=== PATIENT | male | born 1960 | race Hispanic/Latino ===

== ENCOUNTER 2016-09-04 19:05 | Observation (INO) | payer BC, OTHER, SELFPAY ==
[2016-09-04 19:41] VITALS: BMI 24.0
[2016-09-04 19:44] VITALS: TEMP 99.1
[2016-09-04] MEDS ORDERED: Folic Acid 1 MG, Thiamine 100 MG, Multivitamin (MVI) 10 ML in Dextrose 5% In Water 1,00... IV SCH (20:00)
--- NOTE | 2016-09-04 20:12 | ED PDOC ---
Arrival/HPI - General Historian: Patient - History of Present Illness Time/Duration: Prior to Arrival Symptom Onset: Gradual Symptom Course: Unchanged Activities at Onset: Light Context: Home <LiborioTrae - Last Filed: 09/05/16 05:56> <Alonso Zuleta - Last Filed: 09/05/16 14:58> - General Chief Complaint: Alcohol Ingestion Time Seen by Provider: 09/04/16 19:30 - History of Present Illness Narrative History of Present Illness (Text): 09/04/16 19:35 Victoria Kulkarni is a 56 year old male, whose past medical history includes ETOH abuse,alcohol withdrawal seizures who presents to the emergency department complaining of alcohol intoxication and a seizure prior to arrival. Patient was brought in by EMS at family's request. According to family pt. continues to drink and refuses any treatment for his alcoholism. Family says patient had seizures in the past. Patient, when questioned, states that he feels fine and admits that he was drinking earlier today. Patient denies any somatic symptoms, headache, shortness of breath, fever, chills, or any other complaint at this time. PMD: None (Trae Capone) Past Medical History - Provider Review Nursing Documentation Reviewed: Yes - Psychiatric Hx Substance Use: No <Trae Capone - Last Filed: 09/05/16 05:56> Family/Social History - Physician Review Nursing Documentation Reviewed: Yes Family/Social History: No Known Family HX Smoking Status: Light Smoker < 10 Cigarettes Daily Hx Alcohol Use: Yes Frequency of alcohol use: Daily Hx Substance Use: No <Trae Capone - Last Filed: 09/05/16 05:56> Allergies/Home Meds <Trae Capone - Last Filed: 09/05/16 05:56> <Alonso Zuleta - Last Filed: 09/05/16 14:58> Allergies/Adverse Reactions: Allergies No Known Allergies Allergy (Verified 09/04/16 19:41) Home Medications: Home Meds Medication Instructions Recorded Confirmed No Known Home Med 09/04/16 09/04/16 Review of Systems - Physician Review All systems were reviewed & negative as marked: Yes - Review of Systems Constitutional: Other (Alcohol intoxication). absent: Fevers, Night Sweats Eyes: absent: Vision Changes ENT: absent: Hearing Changes Respiratory: absent: SOB, Cough Cardiovascular: absent: Chest Pain Gastrointestinal: absent: Abdominal Pain Genitourinary Male: absent: Urinary Output Changes Musculoskeletal: absent: Back Pain, Neck Pain Skin: absent: Rash Neurological: Seizure. absent: Headache Endocrine: absent: Diaphoresis Hemo/Lymphatic: absent: Adenopathy Psychiatric: absent: Depression <LiborioTrae Tesfaye Last Filed: 09/05/16 05:56> Physical Exam Vital Signs Reviewed: Yes Temperature: Afebrile Blood Pressure: Hypertensive Pulse: Tachycardic Respiratory Rate: Normal Appearance: Positive for: Well-Appearing, Non-Toxic, Comfortable Pain Distress: None Mental Status: Positive for: Alert and Oriented X 3, other (Intoxicated) Finger Stick Blood Glucose: 105 - Systems Exam Head: Present: Atraumatic, Normocephalic Pupils: Present: PERRL Extroacular Muscles: Present: EOMI Conjunctiva: Present: Normal Mouth: Present: Moist Mucous Membranes Neck: Present: Normal Range of Motion Respiratory/Chest: Present: Clear to Auscultation, Good Air Exchange. No: Respiratory Distress, Accessory Muscle Use Cardiovascular: Present: Regular Rate and Rhythm, Normal S1, S2. No: Murmurs Abdomen: Present: Normal Bowel Sounds. No: Tenderness, Distention, Peritoneal Signs Back: Present: Normal Inspection Upper Extremity: Present: Normal Inspection. No: Cyanosis, Edema Lower Extremity: Present: Normal Inspection. No: Edema Neurological: Present: GCS=15, CN II-XII Intact, Motor Func Grossly Intact, Normal Sensory Function Skin: Present: Warm, Dry, Normal Color. No: Rashes Psychiatric: Present: Alert, Oriented x 3, Intoxicated <LiborioTrae - Last Filed: 09/05/16 05:56> Medical Decision Making - Lab Interpretations I have reviewed the lab results: Yes <Trae Capone - Last Filed: 09/05/16 05:56> <Alonso Zuleta - Last Filed: 09/05/16 14:58> ED Course and Treatment: 09/04/16 19:35 Impression: 56 year old male complaining of alcohol intoxication and a seizure episode prior to arrival. Differential Diagnosis included but are not limited to: Alcohol intoxication vs. Alcohol withdrawal vs. Seizure vs. Seizure disorder Plan: -- EKG -- Chest X-ray -- Labs -- Ativan and Dextrose -- Reassess and disposition (Trae Capone) - Lab Interpretations Lab Results: 09/04/16 20:01 09/04/16 20:01 Lab Results 09/04/16 20:01: Alcohol, Quantitative 391 H* 09/04/16 20:01: WBC 6.4, RBC 4.57, Hgb 14.5, Hct 41.6 L, MCV 91.0, MCH 31.7, MCHC 34.9, RDW 14.5, Plt Count 202, MPV 8.8 09/04/16 20:01: Sodium 141, Potassium 3.9, Chloride 100, Carbon Dioxide 27, Anion Gap 18, BUN 13, Creatinine 0.7, Est GFR ( Amer) > 60, Est GFR (Non- Af Amer) > 60, Random Glucose 103, Calcium 8.9, Total Bilirubin 0.8, AST 94 H, ALT 56, Alkaline Phosphatase 56, Total Protein 7.7, Albumin 4.4, Globulin 3.3, Albumin/Globulin Ratio 1.3 09/04/16 20:01: PT 10.1, INR 0.94, APTT 23.1 L - Medication Orders Current Medication Orders: Folic Acid 1 mg/ Thiamine HCl 100 mg/ Multivitamins/Vitamin C 10 ml/ Dextrose 1 ,011.2 mls @ 100 mls/hr IV .[id number] [facility] Last Admin: 09/04/16 21:40 Dose: 100 mls/hr Discontinued Medications Lorazepam (Ativan) 1 mg IVP ONCE ONE Stop: 09/04/16 20:06 Last Admin: 09/04/16 20:28 Dose: 1 mg ED OBSERVATION Date of observation admission: 09/04/16 Time of observation admission: 19:35 <Trae Capone - Last Filed: 09/05/16 05:56> Discharge: Yes <Alonso Zuleta - Last Filed: 09/05/16 14:58> - Observation admission statement Patient is being placed in observation because:: alcohol intoxication (Trae Capone) - Goals of Observation Goals of observation are:: observe for signs of withdrawal, sobriety (Trae Capone) - Progress Note Progress Note: 09/04/16 19:35 Pt presented for alcohol intoxication. Will observe pending sobriety. 09/04/16 21:35 Pt resting comfortably, no acute distress. Alcohol level: 391. 09/04/16 22:50 Reviewed EKG, sinus tachycardia at [address]pm[address] Non-specific ST/T wave changes. 09/05/16 00:49 Pt resting comfortably, no acute distress 09/05/16 02:50 Pt resting comfortably, no acute distress. Stable vital signs. 09/05/16 04:50 Pt resting comfortably, no acute distress 09/05/16 07:[address] Zuleta, pending sobriety, re-evaluation, and final disposition. (Trae Capone) 09/05/16 14:58 Patient awake, alert, ate meal, steady gait. Will discharge. (Alonso Zuleta) - Scribe Statement The provider has reviewed the documentation as recorded by the Scribe <Trae Capone - Last Filed: 09/05/16 05:56> <Alonso Zuleta - Last Filed: 09/05/16 14:58> - Scribe Statement Patricia Braswell Provider Scribe Attestation: All medical record entries made by the Scribe were at my direction and personally dictated by me. I have reviewed the chart and agree that the record accurately reflects my personal performance of the history, physical exam, medical decision making, and the department course for this patient. I have also personally directed, reviewed, and agree with the discharge instructions and disposition. (Trae Capone) Disposition/Present on Arrival - Present on Arrival History of DVT/PE: No History of Uncontrolled Diabetes: No Urinary Catheter: No History of Decub. Ulcer: No History Surgical Site Infection Following: None <Trae Capone - Last Filed: 09/05/16 05:56> - Present on Arrival Any Indicators Present on Arrival: No - Disposition Have Diagnosis and Disposition been Completed?: Yes Disposition Time: 14:58 Patient Plan: Discharge <Alonso Zuleta - Last Filed: 09/05/16 14:58> - Disposition Diagnosis: Alcohol intoxication Disposition: HOME/ ROUTINE Condition: STABLE
[2016-09-04 20:13] LABS: HEMATOCRIT 41.6 % (42.0-52.0); MEAN CORPUSCULAR HEMOGLOBIN 31.7 pg (25.0-35.0); MEAN CORPUSCULAR HGB CONC 34.9 g/dl (31.0-37.0); MEAN PLATELET VOLUME 8.8 fl (7.0-11.0); RED CELL DISTRIBUTION WIDTH 14.5 % (11.5-14.5); WHITE BLOOD COUNT 6.4 10^3/ul (4.5-11.0)
[2016-09-04 20:24] LABS: ALB/GLOB RATIO 1.3 (1.1-1.8); ALKALINE PHOSPHATASE 56 U/L (38-133); ALT/SGPT 56 U/L (7-56); AST/SGOT 94 U/L (15-59); BILIRUBIN,TOTAL 0.8 mg/dL (0.2-1.3); BLOOD UREA NITROGEN 13 mg/dL (7-21); CALCIUM 8.9 mg/dL (8.4-10.5); CARBON DIOXIDE 27 mmol/L (21-33); CHLORIDE 100 mmol/L (98-107); GFR AFRICAN-AMERICAN > 60; GLUCOSE,RANDOM 103 mg/dL (70-110); POTASSIUM 3.9 mmol/L (3.6-5.0); SODIUM 141 mmol/L (132-148); TOTAL PROTEIN 7.7 g/dL (5.8-8.3)
[2016-09-04 20:26] LABS: INR 0.94 (0.93-1.08); PARTIAL THROMBOPLASTIN TIME 23.1 Seconds (23.7-30.8)
[2016-09-05 09:20] VITALS: RESP 16
[2016-09-05 15:09] VITALS: BP 136/82; PULSE 87; O2SAT 97
--- NOTE | 2016-09-05 16:29 | CARD ---
APPROVED REPORT EKG Measurement Heart [id number] <Conclusion> Sinus tachycardia Septal infarct, age undetermined Abnormal ECG
== END 2016-09-05 14:59 | disposition home or self-care (01) ==
LOC: ED 19:05 → EROBSV 22:43
PROVIDERS: ADMIT Emergency Medicine; ATTEND Emergency Medicine
DX: F10.129 Alcohol abuse with intoxication, unspecified (principal); Y90.8 Blood alcohol level of 240 mg/100 ml or more
CPT/HCPCS: 80053; 85027; 85610; 85730; 93005; 96374; 99285; G0378; G0480; J2060; J3411; J7070

== ENCOUNTER 2016-09-18 20:36 | Observation (INO) | payer SELFPAY ==
[2016-09-18 20:36] VITALS: BMI 24.0
[2016-09-18 20:51] VITALS: RESP 18; TEMP 97
--- NOTE | 2016-09-18 21:05 | ED PDOC ---
Arrival/HPI - General Chief Complaint: Alcohol Ingestion Time Seen by Provider: 09/18/16 20:43 Historian: Patient, EMS - History of Present Illness Narrative History of Present Illness (Text): 09/18/16 21:01 Victoria Kulkarni is a 56 year old male, whose past medical history includes alcohol abuse, who presents to the Emergency department brought in by EMS for public intoxication. Patient is awake, alert, and oriented x 3. Patient admits to drinking alcohol tonight and states he feels completely fine. Patient denies any fever, chills, chest pain, shortness of breath, nausea, vomiting, diarrhea, urinary symptoms, back pain, neck pain, headache, dizziness, or any other complaints. Symptom Onset: Gradual Symptom Course: Unchanged Activities at Onset: Rest, Light Context: Street Past Medical History - Provider Review Nursing Documentation Reviewed: Yes - Infectious Disease Hx of Infectious Diseases: None - Psychiatric Hx Substance Use: No Family/Social History - Physician Review Nursing Documentation Reviewed: Yes Family/Social History: No Known Family HX Smoking Status: Light Smoker < 10 Cigarettes Daily Hx Alcohol Use: Yes Hx Substance Use: No Allergies/Home Meds Allergies/Adverse Reactions: Allergies No Known Allergies Allergy (Verified 09/04/16 19:41) Home Medications: Home Meds Medication Instructions Recorded Confirmed No Known Home Med 09/04/16 09/18/16 Review of Systems - Physician Review All systems were reviewed & negative as marked: Yes - Review of Systems Constitutional: Normal. absent: Fevers Eyes: Normal ENT: Normal Respiratory: Normal. absent: SOB, Cough Cardiovascular: Normal. absent: Chest Pain Gastrointestinal: Normal. absent: Abdominal Pain, Diarrhea, Nausea, Vomiting Genitourinary Male: Normal. absent: Dysuria, Frequency, Hematuria, Urinary Output Changes Musculoskeletal: Normal. absent: Back Pain, Neck Pain Skin: Normal. absent: Rash Neurological: Normal. absent: Headache, Dizziness Endocrine: Normal Hemo/Lymphatic: Normal Psychiatric: Other (+alcohol intoxication) Physical Exam Vital Signs Reviewed: Yes Vital Signs Temp Pulse Resp BP Pulse Ox 09/19/16 02:45 82 18 110/78 98 09/19/16 01:32 85 18 114/73 97 09/18/16 20:51 97.0 F L 75 18 125/81 95 Temperature: Afebrile Blood Pressure: Normal Pulse: Regular Respiratory Rate: Normal Appearance: Positive for: Well-Appearing, Comfortable Pain Distress: None Mental Status: Positive for: Alert and Oriented X 3 Finger Stick Blood Glucose: 77 - Systems Exam Head: Present: Atraumatic, Normocephalic Pupils: Present: PERRL Extroacular Muscles: Present: EOMI Conjunctiva: Present: Normal Mouth: Present: Moist Mucous Membranes Neck: Present: Normal Range of Motion Respiratory/Chest: Present: Clear to Auscultation, Good Air Exchange. No: Respiratory Distress, Accessory Muscle Use Cardiovascular: Present: Regular Rate and Rhythm, Normal S1, S2. No: Murmurs Abdomen: Present: Normal Bowel Sounds. No: Tenderness, Distention, Peritoneal Signs Back: Present: Normal Inspection Upper Extremity: Present: Normal Inspection. No: Cyanosis, Edema Lower Extremity: Present: Normal Inspection. No: Edema Neurological: Present: GCS=15, CN II-XII Intact, Speech Normal Skin: Present: Warm, Dry, Normal Color. No: Rashes Psychiatric: Present: Alert, Oriented x 3, Normal Insight, Normal Concentration , Intoxicated Medical Decision Making ED Course and Treatment: 09/18/16 21:01 Impression: 56 year old male brought in by EMS for public intoxication. Differential Diagnosis include but are not limited to: alcohol intoxication Plan: -- Reassess and disposition Prior Visits: Notes and results from previous visits were reviewed. Progress Notes: ED OBSERVATION Discharge: Yes Date of observation admission: 09/18/16 Time of observation admission: 21:00 - Observation admission statement Patient is being placed in observation because:: Alcohol intoxication - Goals of Observation Goals of observation are:: sobriety, observe for signs of withdrawal - Progress Note Progress Note: 09/18/16 21:00 Pt brought in for public intoxication. Will observe until morning pending sobriety. 09/18/16 23:00 Pt resting comfortably, no new complaints. 09/19/16 01:12 Pt sleeping currently, no acute distress. - Scribe Statement The provider has reviewed the documentation as recorded by the Scriblacie Driscoll All medical record entries made by the Scribe were at my direction and personally dictated by me. I have reviewed the chart and agree that the record accurately reflects my personal performance of the history, physical exam, medical decision making, and the department course for this patient. I have also personally directed, reviewed, and agree with the discharge instructions and disposition. Disposition/Present on Arrival - Present on Arrival Any Indicators Present on Arrival: No History of DVT/PE: No History of Uncontrolled Diabetes: No Urinary Catheter: No History of Decub. Ulcer: No History Surgical Site Infection Following: None - Disposition Have Diagnosis and Disposition been Completed?: Yes Diagnosis: Alcohol abuse Disposition: HOME/ ROUTINE Disposition Time: 02:48 Patient Plan: Discharge Condition: GOOD
[2016-09-19 02:46] VITALS: BP 110/78; PULSE 82; O2SAT 98
== END 2016-09-19 02:46 | disposition home or self-care (01) ==
LOC: ED 20:36 → EROBSV 21:00
PROVIDERS: ADMIT Emergency Medicine; ATTEND Emergency Medicine
DX: F10.10 Alcohol abuse, uncomplicated (principal); F17.210 Nicotine dependence, cigarettes, uncomplicated
CPT/HCPCS: 99283; G0378

== ENCOUNTER 2017-04-07 19:30 | Emergency (ER) | payer SELFPAY ==
[2017-04-07 19:37] VITALS: BMI 27.3
[2017-04-07] MEDS ORDERED: TDAP Vaccine 0.5 mL Syr IM ONE (19:46)
--- NOTE | 2017-04-07 19:57 | ED PDOC ---
Arrival/HPI - General Chief Complaint: Alcohol Ingestion Time Seen by Provider: 04/07/17 19:43 Historian: Patient - History of Present Illness Narrative History of Present Illness (Text): 04/07/17 19:42 A 57 year old male, whose past medical history includes alcohol abuse, is brought in for public intoxication. Patient admits to drinking this evening. States he fell, scrapping left side of his face. Denies of any pain to area and feels find. Patient denies of any headache, neck pain, or any other somatic complaints at this time. Denies of any substance abuse. No PMD Past Medical History - Provider Review Nursing Documentation Reviewed: Yes - Infectious Disease Hx of Infectious Diseases: None - Psychiatric Hx Substance Use: No - Anesthesia Hx Anesthesia: No Family/Social History - Physician Review Nursing Documentation Reviewed: Yes Family/Social History: No Known Family HX Smoking Status: Light Smoker < 10 Cigarettes Daily Hx Alcohol Use: Yes Frequency of alcohol use: Daily Hx Substance Use: No Allergies/Home Meds Allergies/Adverse Reactions: Allergies No Known Allergies Allergy (Verified 04/07/17 19:36) Home Medications: Home Meds Medication Instructions Recorded Confirmed No Known Home Med 09/04/16 04/07/17 Review of Systems - Physician Review All systems were reviewed & negative as marked: Yes - Review of Systems Constitutional: absent: Fevers, Night Sweats Gastrointestinal: absent: Abdominal Pain, Diarrhea, Nausea, Vomiting Musculoskeletal: absent: Neck Pain Skin: Other (abrasion to left side of face; denies any pain) Neurological: absent: Headache Physical Exam Vital Signs Temp Pulse Resp BP Pulse Ox 04/08/17 04:00 88 18 138/72 98 04/07/17 22:52 91 H 17 140/71 96 04/07/17 20:09 98.1 F 90 17 180/90 H 96 - Systems Exam Head: Present: Abrasion (superficial abrasion uvulsion to left maxillary facial area). No: Tenderness (no palpable tenderness), Swelling Pupils: Present: PERRL Extroacular Muscles: Present: EOMI Conjunctiva: Present: Normal Mouth: Present: Moist Mucous Membranes Neck: Present: Normal Range of Motion Respiratory/Chest: Present: Clear to Auscultation, Good Air Exchange. No: Respiratory Distress, Accessory Muscle Use Cardiovascular: Present: Regular Rate and Rhythm, Normal S1, S2. No: Murmurs Abdomen: Present: Normal Bowel Sounds. No: Tenderness, Distention, Peritoneal Signs Back: Present: Normal Inspection Upper Extremity: Present: Normal Inspection, Normal ROM. No: Cyanosis, Edema Lower Extremity: Present: Normal Inspection, Normal ROM. No: Edema Neurological: Present: GCS=15, CN II-XII Intact, Speech Normal Skin: Present: Warm, Dry, Normal Color. No: Rashes Psychiatric: Present: Alert, Oriented x 3, Normal Insight, Normal Concentration Medical Decision Making ED Course and Treatment: 04/07/17 19:46 Impression: 57 year old male brought in for public intoxication. Physical exam shows skin superficial abrasion uvulsion to left maxillary facial area, no swelling, no palpable tenderness. Plan: -- Boostrix Vaccine -- Reassess and disposition Prior Visits: Notes and results from previous visits were reviewed. Patient was last seen in the emergency department on 09/18/2016 for for public intoxication. Patient was palced under Emergency department observation and later d/c home. Progress Notes: 04/08/17 06:11 Pt. alert/sober/with steady gait in the ER. - Lab Interpretations Lab Results: Lab Results 04/07/17 21:35: Alcohol, Quantitative 368 H* - Medication Orders Current Medication Orders: Discontinued Medications Tetanus/Reduced Diphtheria/Acell Pertussis (Boostrix Vaccine Inj) 0.5 ml IM .ONCE ONE Stop: 04/07/17 19:47 Last Admin: 04/07/17 20:17 Dose: 0.5 ml Immunization Registry Document 04/07/17 20:17 IT (Rec: 04/07/17 20:17 IT [id number]) Immunization Registry Consent Date 04/07/17 - Scribe Statement The provider has reviewed the documentation as recorded by the Mao Perez Provider Scribe Attestation: All medical record entries made by the Mao were at my direction and personally dictated by me. I have reviewed the chart and agree that the record accurately reflects my personal performance of the history, physical exam, medical decision making, and the department course for this patient. I have also personally directed, reviewed, and agree with the discharge instructions and disposition. Disposition/Present on Arrival - Present on Arrival Any Indicators Present on Arrival: No History of DVT/PE: No History of Uncontrolled Diabetes: No Urinary Catheter: No History of Decub. Ulcer: No History Surgical Site Infection Following: None - Disposition Have Diagnosis and Disposition been Completed?: Yes Diagnosis: Alcohol intoxication, Facial abrasion Disposition: HOME/ ROUTINE Disposition Time: 06:11 Patient Plan: Discharge Patient Problems: Current Active Problems Problem Status Onset Alcohol intoxication Acute Facial abrasion Acute Condition: STABLE Discharge Instructions (ExitCare): Alcohol Intoxication (ED), Abuse of Alcohol (ED), Abrasion (ED) Additional Instructions: Keep wound clean and dry/may apply bacitracin ointment daily Referrals: Austin Azevedo, [Primary Care Provider] - Follow up with primary Alcoholics Anonymous [Outside] - Follow up with primary Forms: [employer] ([place] Citizen)
[2017-04-07 20:13] VITALS: TEMP 98.1
[2017-04-08 05:40] VITALS: RESP 18
[2017-04-08 06:32] VITALS: BP 135/80; PULSE 85; O2SAT 100
== END 2017-04-08 06:33 | disposition home or self-care (01) ==
LOC: ED 19:30
DX: S00.81XA Abrasion of other part of head, initial encounter (principal); W18.30XA Fall on same level, unspecified, initial encounter; Y92.89 Other specified places as the place of occurrence of the external cause; F10.129 Alcohol abuse with intoxication, unspecified; Y90.8 Blood alcohol level of 240 mg/100 ml or more; Z23 Encounter for immunization
CPT/HCPCS: 90471; 90715; 99283; G0480

== ENCOUNTER 2017-06-05 11:38 | Inpatient (IN) | payer BC ==
--- NOTE | 2017-06-05 12:21 | ED PDOC ---
Arrival/HPI - General Chief Complaint: Cough, Cold, Congestion Time Seen by Provider: 06/05/17 12:16 Historian: Patient - History of Present Illness Narrative History of Present Illness (Text): 06/05/17 12:16 57 y/o male, chronic smoker, nkda, chronic smokers, c/o coughing on and off with sorethroat x 1 week. Aching pain, aggravated by swallowing, associated with the coughing from wet to dry, no chest pain or shortness of breath, admits having fever at night recently, no recent traveling with the last travel in 2016, from [facility], chronic smoker, no rash, no numbness or tingling, no other medical or psychological complaints. 06/05/17 15:44 -Last chest xray from 05/[address] Tello office, chest xray has no cavitation lesions. Past Medical History - Infectious Disease Hx of Infectious Diseases: None - Cardiac Hx Cardiac Disorders: No - Pulmonary Hx Respiratory Disorders: No - Neurological Hx Neurological Disorder: No - HEENT Hx HEENT Disorder: No - Renal Hx Renal Disorder: No - Endocrine/Metabolic Hx Endocrine Disorders: No - Hematological/Oncological Hx Blood Disorders: No - Integumentary Hx Dermatological Disorder: No - Musculoskeletal/Rheumatological Hx Musculoskeletal Disorders: No - Gastrointestinal Hx Gastrointestinal Disorders: No - Genitourinary/Gynecological Hx Genitourinary Disorders: No - Psychiatric Hx Psychophysiologic Disorder: No Hx Substance Use: No - Anesthesia Hx Anesthesia: No Family/Social History - Physician Review Nursing Documentation Reviewed: Yes Family/Social History: Unknown Family HX Smoking Status: Light Smoker < 10 Cigarettes Daily Hx Alcohol Use: Yes Frequency of alcohol use: Socially Hx Substance Use: No Allergies/Home Meds Allergies/Adverse Reactions: Allergies No Known Allergies Allergy (Verified 06/05/17 11:56) Home Medications: Home Meds Medication Instructions Recorded Confirmed No Known Home Med 09/04/16 06/05/17 Review of Systems - Review of Systems Constitutional: absent: Fatigue, Fevers Eyes: absent: Vision Changes ENT: Sore Throat. absent: Hearing Changes Respiratory: Cough. absent: SOB, Sputum, Wheezing Cardiovascular: absent: Chest Pain Gastrointestinal: absent: Abdominal Pain, Diarrhea, Nausea, Vomiting Musculoskeletal: absent: Arthralgias, Back Pain Skin: absent: Rash, Pruritis Psychiatric: absent: Anxiety, Depression, Suicidal Ideation Physical Exam Vital Signs Reviewed: Yes Vital Signs Temp Pulse Resp BP Pulse Ox 06/05/17 17:56 101.6 F H 103 H 18 129/69 95 06/05/17 16:11 102.2 F H 100 H 20 141/88 96 06/05/17 15:05 98.1 F 92 H 17 134/80 97 06/05/17 11:59 97.9 F 89 16 133/79 96 Temperature: Afebrile Blood Pressure: Normal Pulse: Regular Respiratory Rate: Normal Appearance: Positive for: Well-Appearing, Non-Toxic, Comfortable Pain Distress: Mild Mental Status: Positive for: Alert and Oriented X 3 - Systems Exam Head: Present: Atraumatic, Normocephalic Pupils: Present: PERRL Extroacular Muscles: Present: EOMI Conjunctiva: Present: Normal Ears: Present: NORMAL TM, Normal Canal. No: Erythema Mouth: Present: Moist Mucous Membranes Pharnyx: Present: Normal. No: ERYTHEMA, EXUDATE Nose (External): Present: Atraumatic. No: Abrasion, Contusion Nose (Internal): Present: Normal Inspection, Rhinorrhea. No: Septal Hematoma, Epistaxis Neck: Present: Normal Range of Motion Respiratory/Chest: Present: Clear to Auscultation, Good Air Exchange, Rhonchi ( RML region. ). No: Respiratory Distress, Accessory Muscle Use, Wheezes, Decreased Breath Sounds, Rales, Retracting, Tachypneic, Tender to Palpation Cardiovascular: Present: Regular Rate and Rhythm, Normal S1, S2. No: Murmurs Abdomen: Present: Normal Bowel Sounds. No: Tenderness, Distention, Peritoneal Signs Back: Present: Normal Inspection. No: Midline Tenderness, Paraspinal Tenderness Upper Extremity: Present: Normal Inspection. No: Cyanosis, Edema Lower Extremity: Present: Normal Inspection. No: Edema Neurological: Present: GCS=15, CN II-XII Intact, Speech Normal, Motor Func Grossly Intact Skin: Present: Warm, Dry, Normal Color. No: Rashes Psychiatric: Present: Alert, Oriented x 3, Normal Insight, Normal Concentration Medical Decision Making ED Course and Treatment: 06/05/17 12:23 -Chest xray -observe and reassess 06/05/17 13:22 -Chest xray show: A large superior segment right lower lobe likely cavitary lesion is identified of either infectious or neoplastic origin though an inflammatory process is not completely excluded. Volume loss of the right lung is appreciated with elevation of the right hemidiaphragm evident in the frontal view. Follow chest CT is advised with contrast for greater characterization of this finding. -Labs/blood/sputumn cultures/quantiferon ordered. IV rocephine/azithromycin ordered. -Case discussed with Dr. Lazo and cxr as well, agreed this needs further work up and admission. -Serum Procalcitonin and ESR/sputum culture ordered. -Contact precaution placed. 06/05/17 15:40 -EKG: NSR @ 98 BPM, no ST elevation or depression, no T wave inversion. -CT chest: Multiple cavitary and necrotic masses the right lung. Additional subsegmental infiltrates in the left upper lobe. These findings are likely infectious/ inflammatory nature. -Labs are non significant except wbc 18 (blood cultures/sputum culture), platete 565 (likely inflammatory/infectious response), K+ 3.5 (potassium chloride 20meq po ordered). -Rapid flu is negative -UA is pending, IV rocephine/azithromycin infusing, N95 mask and isolation ordered. -I explained to the patient that the differential can be tumor vs. pneumonia vs. abscess vs. TB vs. copd changes, he agreed to be admitted, paging hospitalist protection manager since Dr. Aleman use hospitalist service now starting 06/05/17 15:46 -I spoke to Dr. Haseeb Garvin, hospitalist protection manager, discussed about the case/labs/ radiology results and IV antibiotics, expressed my concern for possible TB, agreed to admit to her service and will follow up on any pending labs and treatment. -Pt. will need ID and pulmonology consult. 06/05/17 16:06 -AB.52, PCO2 35, HCO3 28.6 -Oxygen 2L nasal cannula ordered. 06/05/17 16:13 -Pt. febrile in the ER, tylenol 650mg po ordered, I spoke with the ID RN Beckie Grayson, awared of this case, request negative pressure room on the floor for this patient. I explained to the [employer]PA[employer] Montgomery as well. - Lab Interpretations Lab Results: 06/05/17 13:50 06/05/17 13:50 Lab Results 06/05/17 15:50: pCO2 35, pO2 56.0 L, HCO3 28.6 H, ABG pH 7.52 H, ABG Total CO2 29.7 H, ABG O2 Saturation 92.8 L, ABG O2 Content 14.1 L, ABG Base Excess 5.6 H, ABG Hemoglobin 11.2 L, ABG Carboxyhemoglobin 2.5 H, POC ABG HHb (Measured) 6.9 H , ABG Methemoglobin 1.2, ABG O2 Capacity 15.2 L, Hgb O2 Saturation 89.4 L, FiO2 21.0 06/05/17 13:50: Alcohol, Quantitative < 10 06/05/17 13:50: ESR 121 H 06/05/17 13:50: WBC 18.2 H D, RBC 3.43 L, Hgb 10.5 L, Hct 32.0 L, MCV 93.3, MCH 30.6, MCHC 32.8, RDW 14.3, Plt Count 565 H, MPV 8.5, Gran % 86.4 H, Lymph % ( Auto) 8.1 L, [place] % (Auto) 5.3, Eos % (Auto) 0.1 L, Baso % (Auto) 0.1, Gran # 15.75 H, Lymph # (Auto) 1.5, [place] # (Auto) 1.0 H, Eos # (Auto) 0.0, Baso # (Auto ) 0.02 06/05/17 13:50: Sodium 135, Potassium 3.5 L, Chloride 93 L, Carbon Dioxide 33, Anion Gap 12, BUN 16, Creatinine 0.6 L, Est GFR ( Amer) > 60, Est GFR ( Non-Af Amer) > 60, Random Glucose 102, Calcium 9.1, Total Bilirubin 0.4, AST 41 , ALT 35, Alkaline Phosphatase 149 H, Total Protein 6.9, Albumin 3.1, Globulin 3.9, Albumin/Globulin Ratio 0.8 L 06/05/17 13:30: Influenza Typ A,B (EIA) Negative for flu a/b - RAD Interpretation Radiology Orders: 06/05/17 12:21 CHEST TWO VIEWS (PA/LAT) [RAD] Stat 06/05/17 13:20 CHEST W/CONTRAST [CT] Stat Chest xray: A large superior segment right lower lobe likely cavitary lesion is identified of either infectious or neoplastic origin though an inflammatory process is not completely excluded. Volume loss of the right lung is appreciated with elevation of the right hemidiaphragm evident in the frontal view. Follow chest CT is advised with contrast for greater characterization of this finding. CT chest: PROCEDURE: CT Chest with contrast HISTORY: Rt. lung cavitation lesion vs. infection vs. tumor COMPARISON: None. TECHNIQUE: Contiguous axial images were obtained through the chest with intravenous contrast enhancement. Sagittal and coronal reconstructions were performed. IV contrast: 100 cc Omnipaque 350 Radiation dose (DLP): 363.64 mGy-cm. This CT exam was performed using one or more of the following dose reduction techniques: Automated exposure control, adjustment of the mA and/or kV according to patient size, and/or use of iterative reconstruction technique. FINDINGS: LUNGS: Multiple contiguous cavitary masses affecting the superior segment of the right lower lobe, anterior segment right upper lobe and apex of the right upper. Largest cavitary mass which is somewhat atypical in the superior segment right lower lobe measures 5.3 x 7.8 cm. A more traditional cavitary mass with large air-fluid level in the anterior segment right upper lobe measures 5.6 x 4 6 cm. Additional parenchymal consolidative changes partially cavitary reside in the apex. In addition, there are faint subsegmental peripheral infiltrates in the left upper lobe. The most likely etiology would be an infectious inflammatory process. Septic emboli unusually more widely disseminated and smaller. The presence of contralateral subsegmental infiltrates suggest an infectious etiology. MEDIASTINUM: Unremarkable thoracic aorta. No aneurysm or dissection. Normal sized heart. Although this study is not tailored for pulmonary embolism there are no large pulmonary emboli noted. No lymphadenopathy. PLEURA: No pleural fluid. No pneumothorax. BONES: No fracture. No destructive lesion. UPPER ABDOMEN: Grossly unremarkable. OTHER FINDINGS: None. IMPRESSION: Multiple cavitary and necrotic masses the right lung. Additional subsegmental infiltrates in the left upper lobe. These findings are likely infectious/ inflammatory nature. Dining Room Tables Set Up Attendant: Radiologist - EKG Interpretation EKG Interpretation (Text): 06/05/17 14:58 -EKG: NSR @ 98 BPM, no ST elevation or depression, no T wave inversion. Interpreted by ED Physician: Yes Type: 12 lead EKG - Medication Orders Current Medication Orders: Acetaminophen (Tylenol 325mg Tab) 650 mg PO Q6H PRN PRN Reason: Fever >100.4 F Albuterol/Ipratropium (Duoneb 3 Mg/0.5 Mg (3 Ml) Ud) 3 ml IH Q2H PRN PRN Reason: Shortness of Breath Benzocaine/Menthol (Cepacol Sore Throat) 1 aneudy MT Q2H PRN PRN Reason: Sore Throat Last Admin: 06/05/17 17:54 Dose: 1 aneudy Guaifenesin/Dextromethorphan (Robitussin Dm) 5 ml PO Q4H PRN PRN Reason: Cough Sodium Chloride (Sodium Chloride 0.9%) 1,000 mls @ 100 mls/hr IV .Q10H HIPOLITO Last Admin: 06/05/17 14:07 Dose: 100 mls/hr eMAR Start Stop Document 06/05/17 14:07 GMD (Rec: 06/05/17 14:07 GMD [id number]) Intravenous Solution Start Date 06/05/17 Start Time 14:07 Ceftriaxone Sodium (Rocephin 1 Gram Ivpb) 1 gm in 100 mls @ 100 mls/hr IVPB DAILY HIPOLITO PRN Reason: Protocol Ampicillin Sodium/Sulbactam (Sodium 3 gm/ Sodium Chloride) 100 mls @ 200 mls/ hr IVPB Q6 HIPOLITO PRN Reason: Protocol Last Admin: 06/05/17 17:59 Dose: 200 mls/hr eMAR Start Stop Document 06/05/17 17:59 SZA (Rec: 06/05/17 18:00 SAMI [id number]) Intravenous Solution Start Date 06/05/17 Start Time 18:00 End Date 06/05/17 End time 18:30 Total Infusion Time 30 Ibuprofen (Motrin Tab) 400 mg PO Q6H PRN PRN Reason: Pain, moderate (4-7) Multivitamins/Minerals (Therapeutic-M Tab) 1 tab PO 0800 HIPOLITO Nicotine (Nicoderm Cq) 1 patch TD DAILY H[facility]OLITO Pantoprazole Sodium (Protonix Ec Tab) 40 mg PO 0600 HIPOLITO Thiamine HCl (Vitamin B1 Tab) 100 mg PO DAILY [facility] Discontinued Medications Acetaminophen (Tylenol 325mg Tab) 650 mg PO STAT STA Stop: 06/05/17 16:14 Last Admin: 06/05/17 16:23 Dose: 650 mg MAR Pain/Vitals Document 06/05/17 16:23 [facility] (Rec: 06/05/17 16:24 [id number] Pain Reassessment Is This A Pain ReAssessment? No Sleep Is patient sleeping during reassessment? No Presence of Pain Presence of Pain No Re-Assess: MAR Pain/Vitals Document 06/05/17 17:23 [facility] (Rec: 06/05/17 18:07 [id number][facility] Pain Reassessment Is This A Pain ReAssessment? No Sleep Is patient sleeping during reassessment? No Presence of Pain Presence of Pain No Folic Acid (Folic Acid) 1 mg PO STAT STA Stop: 06/05/17 17:12 Last Admin: 06/05/17 17:53 Dose: 1 mg Heparin Sodium (Porcine) (Heparin) 5,000 units SC STAT STA PRN Reason: Protocol Stop: 06/05/17 17:12 Last Admin: 06/05/17 17:53 Dose: 5,000 units Subcutaneous Administrations Document 06/05/17 17:53 [facility] (Rec: 06/05/17 17:53 [id number][facility] Injection Site MAR Injection Site Left Arm Charges for Administration # of Subcutaneous Administrations 1 Ceftriaxone Sodium (Rocephin 1 Gram Ivpb) 1 gm in 100 mls @ 200 mls/hr IVPB STAT STA PRN Reason: Protocol Stop: 06/05/17 13:49 Last Admin: 06/05/17 14:17 Dose: 200 mls/hr eMAR Start Stop Document 06/05/17 14:17 GMD (Rec: 06/05/17 14:17 GMD [id number]) Intravenous Solution Start Date 06/05/17 Start Time 14:17 End Date 06/05/17 End time 14:47 Total Infusion Time 30 Azithromycin (Zithromax 500mg In Ns) 500 mg in 250 mls @ 167 mls/hr IVPB STAT STA PRN Reason: Protocol Stop: 06/05/17 14:49 Last Admin: 06/05/17 15:34 Dose: 167 mls/hr eMAR Start Stop Document 06/05/17 15:34 HELENAYissel (Rec: 06/05/17 16:00 SAMI [id number]) Intravenous Solution Start Date 06/05/17 Start Time 15:34 End Date 06/05/17 End time 17:10 Total Infusion Time 96 Potassium Chloride (K-Dur 20 Meq Er Tab) 20 meq PO STAT STA Stop: 06/05/17 14:14 Last Admin: 06/05/17 16:00 Dose: 20 meq - PA / MOTOR ADJUSTER / Resident Statement /DO has reviewed & agrees with the documentation as recorded. Disposition/Present on Arrival - Present on Arrival Any Indicators Present on Arrival: No History of DVT/PE: No History of Uncontrolled Diabetes: No Urinary Catheter: No History of Decub. Ulcer: No History Surgical Site Infection Following: None - Disposition Have Diagnosis and Disposition been Completed?: Yes Diagnosis: Cavitating mass in right middle lung lobe, Leukocytosis, Hypokalemia, Pneumonia Disposition: HOSPITALIZED Disposition Time: 12:25 Isolation: Airborne Patient Plan: Admission Patient Problems: Current Active Problems Problem Status Onset Cavitating mass in right middle lung lobe Acute Leukocytosis Acute Hypokalemia Acute Pneumonia Acute Condition: GUARDED
--- NOTE | 2017-06-05 13:08 | RAD ---
HISTORY: cough x 1 week COMPARISON: No prior. TECHNIQUE: Chest PA and lateral FINDINGS: LUNGS: There is a large oval density identified at the region of the superior segment right lower lobe with air-fluid level at its superior most portion suspicious for a cavitary lesion, with empyema or pleural base collection less likely. Volume loss at the right lung appears to elevate the right hemidiaphragm which trace right pleural effusion not excluded. None is seen the left. Left chest appears clear overall with no left-sided infiltrate appreciable. No pneumothorax bilaterally. CARDIOVASCULAR: Normal. Cardiac silhouette is evident with no definite pulmonary vascular derangement identified at this time. OSSEOUS STRUCTURES: No significant abnormalities. VISUALIZED UPPER ABDOMEN: Normal. OTHER FINDINGS: None. IMPRESSION: A large superior segment right lower lobe likely cavitary lesion is identified of either infectious or neoplastic origin though an inflammatory process is not completely excluded. Volume loss of the right lung is appreciated with elevation of the right hemidiaphragm evident in the frontal view. Follow chest CT is advised with contrast for greater characterization of this finding.
[2017-06-05] MEDS ORDERED: Azithromycin 500MG/NS 250ml 500 MG/250 ML BAG IVPB STA (13:20)
[2017-06-05] MEDS ORDERED: cefTRIAXone 1 gm 1 GM/100 ML BAG IVPB STA (13:20)
[2017-06-05 14:05] LABS: BASO # 0.02 K/mm3 (0.0-2.0); BASO % 0.1 % (0.0-3.0); EOS % 0.1 % (1.5-5.0); GRAN # 15.75 (1.4-6.5); GRAN % 86.4 % (50.0-68.0); HEMOGLOBIN 10.5 g/dL (14.0-18.0); LYMPH # 1.5 (1.2-3.4); LYMPH % 8.1 % (22.0-35.0); MEAN CELL VOLUME 93.3 fl (80.0-105.0); MEAN CORPUSCULAR HEMOGLOBIN 30.6 pg (25.0-35.0); MEAN CORPUSCULAR HGB CONC 32.8 g/dl (31.0-37.0); MEAN PLATELET VOLUME 8.5 fl (7.0-11.0); MONO % 5.3 % (1.0-6.0); RBC 3.43 10^6/uL (3.5-6.1); RED CELL DISTRIBUTION WIDTH 14.3 % (11.5-14.5); WHITE BLOOD COUNT 18.2 10^3/ul (4.5-11.0)
[2017-06-05] MEDS: Sodium Chloride 0.9% 1,000 ML IV SCH ×2 (14:07→22:13)
[2017-06-05 14:11] LABS: ALB/GLOB RATIO 0.8 (1.1-1.8); ALBUMIN 3.1 g/dL (3.0-4.8); ALT/SGPT 35 U/L (7-56); AST/SGOT 41 U/L (17-59); BLOOD UREA NITROGEN 16 mg/dL (7-21); CALCIUM 9.1 mg/dL (8.4-10.5); GFR AFRICAN-AMERICAN > 60; GFR NON-AFRICAN AMERICAN > 60
[2017-06-05] MEDS ORDERED: Potassium Chloride 20 mEq ER Tab PO STA (14:13)
[2017-06-05] MEDS ORDERED: Iohexol 350 MG/100 ML VIAL ONE (14:19)
--- NOTE | 2017-06-05 15:26 | CT ---
PROCEDURE: CT Chest with contrast HISTORY: Rt. lung cavitation lesion vs. infection vs. tumor COMPARISON: None. TECHNIQUE: Contiguous axial images were obtained through the chest with intravenous contrast enhancement. Sagittal and coronal reconstructions were performed. IV contrast: 100 cc Omnipaque 350 Radiation dose (DLP): 363.64 mGy-cm. This CT exam was performed using one or more of the following dose reduction techniques: Automated exposure control, adjustment of the mA and/or kV according to patient size, and/or use of iterative reconstruction technique. FINDINGS: LUNGS: Multiple contiguous cavitary masses affecting the superior segment of the right lower lobe, anterior segment right upper lobe and apex of the right upper. Largest cavitary mass which is somewhat atypical in the superior segment right lower lobe measures 5.3 x 7.8 cm. A more traditional cavitary mass with large air-fluid level in the anterior segment right upper lobe measures 5.6 x 4 6 cm. Additional parenchymal consolidative changes partially cavitary reside in the apex. In addition, there are faint subsegmental peripheral infiltrates in the left upper lobe. The most likely etiology would be an infectious inflammatory process. Septic emboli unusually more widely disseminated and smaller. The presence of contralateral subsegmental infiltrates suggest an infectious etiology. MEDIASTINUM: Unremarkable thoracic aorta. No aneurysm or dissection. Normal sized heart. Although this study is not tailored for pulmonary embolism there are no large pulmonary emboli noted. No lymphadenopathy. PLEURA: No pleural fluid. No pneumothorax. BONES: No fracture. No destructive lesion. UPPER ABDOMEN: Grossly unremarkable. OTHER FINDINGS: None. IMPRESSION: Multiple cavitary and necrotic masses the right lung. Additional subsegmental infiltrates in the left upper lobe. These findings are likely infectious/ inflammatory nature.
[2017-06-05 15:57] LABS: ARTERIAL BLOOD GAS HCO3 28.6 mmol/L (21-28); ARTERIAL BLOOD GAS HEMOGLOBIN 11.2 g/dL (11.7-17.4); ARTERIAL BLOOD GAS O2 CAPACITY 15.2 mL/dl (16-24); ARTERIAL BLOOD GAS O2 CONTENT 14.1 ML/dl (15-23); ARTERIAL BLOOD GAS O2 SAT 92.8 % (95-98); ARTERIAL BLOOD GAS PCO2 35 mm/Hg (35-45); ARTERIAL BLOOD GAS PH 7.52 (7.35-7.45); ARTERIAL BLOOD GAS TCO2 29.7 mmol.L (22-28)
[2017-06-05] MEDS ORDERED: Albuterol-Ipratrop 3 mg / 0.5 (3 ml) UD IH PRN (17:11)
[2017-06-05] MEDS: Benzocaine/Menthol (Cepacol) Lozenge MT PRN (17:54)
--- NOTE | 2017-06-05 19:20 | CP.PCM.HP ---
<Brain Frederick - Last Filed: 06/05/17 19:04> History of Present Illness - History of Present Illness History of Present Illness: Mr. Kulkarni is a 57 year old male with a past medical history significant for alcohol abuse, HTN and HLD who presents with dry cough with associated chills and throat irritation for a duration of four to five days. Patient reports that four to five days ago he developed a cough that is mostly dry, with rare production of clear sputum. He also endorses that for the first three days of his present illness, he experienced nightly chills requiring him to put on an extra shirt to remain warm but denies fevers or night sweats. He denies any aggravating or alleviated factors. He endorses that his most recent travel out of the country included a trip in 01/06 to [facility] and [facility] but denies any illness experienced since that time. He also endorses that in the past, Dr. Crews was monitoring a "lung spot" but that this "disappeared" the last time he had imaging done nine months ago. He also endorses a 10lb weight loss over the course of the last several months. Currently, he denies headache, changes in his vision, rhinorrhea, chest pain, palpitations, syncope, leg swelling, SOB , wheezing, hemoptysis, night sweats, abdominal pain, N/V/D/C, melena, hematemesis, hematochezia, urinary symptoms, skin changes, or any numbness/ tingling/weakness of any extremity. PMH: Alcohol abuse/withdrawal, HTN and HLD PSH: Denies Family History: Denies familial history of cancer or cardiac complications Social History: Current smoker with ~30 year pack smoking history, former drinker (quit 04/15/17), and denies any illicit drug use Allergies: NKDA Home Medications: As per MAR Present on Admission - Present on Admission Any Indicators Present on Admission: No Review of Systems - Review of Systems Review of Systems: As per HPI, otherwise negative Past Patient History - Infectious Disease Hx of Infectious Diseases: None - Tetanus Immunizations Tetanus Immunization: Unknown - Past Medical History & Family History Past Medical History?: Yes Past Family History: Reviewed and not pertinent - Past Social History Smoking Status: Light Smoker < 10 Cigarettes Daily - CARDIAC Hx Cardiac Disorders: No - PULMONARY Hx Respiratory Disorders: No - NEUROLOGICAL Hx Neurological Disorder: No - HEENT Hx HEENT Problems: No - RENAL Hx Chronic Kidney Disease: No - ENDOCRINE/METABOLIC Hx Endocrine Disorders: No - HEMATOLOGICAL/ONCOLOGICAL Hx Blood Disorders: No - INTEGUMENTARY Hx Dermatological Problems: No - MUSCULOSKELETAL/RHEUMATOLOGICAL Hx Musculoskeletal Disorders: No - GASTROINTESTINAL Hx Gastrointestinal Disorders: No - GENITOURINARY/GYNECOLOGICAL Hx Genitourinary Disorders: No - PSYCHIATRIC Hx Psychophysiologic Disorder: No Hx Substance Use: No - SURGICAL HISTORY Hx Surgeries: No - ANESTHESIA Hx Anesthesia: No Meds Allergies/Adverse Reactions: Allergies Allergy/AdvReac Type Severity Reaction Status Date / Time No Known Allergies Allergy Verified 06/05/17 11:56 Physical Exam - Constitutional Appears: Non-toxic, No Acute Distress - Head Exam Head Exam: ATRAUMATIC, NORMAL INSPECTION, NORMOCEPHALIC - Eye Exam Eye Exam: EOMI, Normal appearance, PERRL - ENT Exam ENT Exam: Mucous Membranes Moist, Normal Exam - Neck Exam Neck exam: Positive for: Full Rom, Normal Inspection. Negative for: Lymphadenopathy - Respiratory Exam Respiratory Exam: Decreased Breath Sounds (RLL), Rhonchi (Scattered but localized in lower lung ware), NORMAL BREATHING PATTERN. absent: Accessory Muscle Use, Chest Wall Tenderness, Clear to Auscultation Bilateral, Prolonged Expiratory Phase, Rales, Wheezes, Respiratory Distress, Stridor - Cardiovascular Exam Cardiovascular Exam: REGULAR RHYTHM, RRR, +S1, +S2 - GI/Abdominal Exam GI & Abdominal Exam: Normal Bowel Sounds, Soft. absent: Tenderness - Extremities Exam Extremities exam: Positive for: full ROM, normal capillary refill, normal inspection, pedal pulses present. Negative for: calf tenderness, joint swelling , pedal edema, tenderness - Back Exam Back exam: NORMAL INSPECTION - Neurological Exam Neurological exam: Alert, CN II-XII Intact, Normal Gait, Oriented x3, Reflexes Normal - Psychiatric Exam Psychiatric exam: Normal Affect, Normal Mood - Skin Skin Exam: Dry, Intact, Normal Color, Warm Results - Vital Signs Recent Vital Signs: Last Vital Signs Temp 101.6 F H 06/05/17 17:56 Pulse 103 H 06/05/17 17:56 Resp 18 06/05/17 17:56 BP 129/69 06/05/17 17:56 Pulse Ox 95 06/05/17 17:56 - Labs Result Diagrams: 06/05/17 13:50 06/05/17 13:50 Assessment & Plan - Assessment and Plan (Free Text) Assessment: 57 year old male with a past medical history significant for alcohol abuse, HTN and HLD who presents with dry cough with associated chills and throat irritation for a duration of four to five days. Patient was found to be febrile and with tachycardia and leukocytosis in the ED. A chest x-ray and chest CT were done and showed multiple cavitary and necrotic masses the right lung and left upper lobe infiltrates. Patient was started on Unasyn and Rocephin, with ID and Pulmonology consulted. He was also placed on isolation precautions until TB can be ruled out. Plan: 1. Cavitary Lesions of Right Lower Lobe -Chest X-Ray showed large superior segment right lower lobe cavitary lesion -Chest CT showed multiple cavitary and necrotic masses the right lung and subsegmental infiltrates in the left upper lobe -Previous Chest X-Ray taken on 05/25/16 showed hyperventilation and chronic changes consistent with emphysema and no masses or cavitary lesions -Noted to have fever to 102.2, leukocytosis to 18.2, tachycardia to 103 and with no tachypnea -Influenza serology negative -Quantiferon, procalcitonin, blood, AFB and sputum cultures pending -IV Rocephin and Unasyn for empiric coverage -Duonebs Q2 PRN and Oxygen Therapy via NC -Robitussin DM 5ml PO Q6 PRN and Cepacol 1 aneudy MT Q2 PRN -Tylenol PRN for fever -Ibuprofen 400mg PO Q6H PRN for pain control -Airborne and Contact precautions -Pulmonology and ID consulted, all recommendations appreciated 2. History of Alcohol Abuse -Alcohol level <10 -Reports quitting two months ago -Folic acid, Thiamine and MV supplementation 3. History of Tobacco Abuse -Nicotine 21mg/day TD 4. History of HLD -Fasting Lipid Panel in AM GI Prophylaxis: Protonix DVT Prophylaxis: Heparin Patient seen and case discussed with attending, Dr. Milner. - Date & Time Date: 06/05/17 Time: 19:24 <Darlyn Milner - Last Filed: 06/06/17 07:55> Results - Vital Signs Recent Vital Signs: Last Vital Signs Temp 99.8 F H 06/06/17 00:27 Pulse 86 06/06/17 00:27 Resp 20 06/06/17 00:27 BP 119/68 06/06/17 00:27 Pulse Ox 92 L 06/05/17 22:20 - Labs Result Diagrams: 06/05/17 13:50 06/05/17 13:50 Attending/Attestation - Attestation I have personally seen and examined this patient.: Yes I have fully participated in the care of the patient.: Yes I have reviewed all pertinent clinical information: Yes Notes (Text): 06/05/17 57 year old male with past medical history of alcohol abuse and dyslipidemia and active smoker who presents with complaint of cough and shortness of breath. In ER he was found to have fever of 102 with tachycardia and leukocytosis. CXR/ CT chest showed multiple cavitary and necrotics masses in lungs. Continue with iv antibiotics. ID and pulmonary consultations are requested. Will obtain cultures including sputum and AFB. He was counselled on smoking cessation. He states he quit drinking alcohol about 6 weeks ago. Lipid panel is ordered for AM. Darlyn Milner MD Hospitalist.
[2017-06-06 00:41] VITALS: BMI 25.8
[2017-06-06] MEDS: Pantoprazole 40 mg EC Tab PO SCH (06:38)
[2017-06-06 08:28] LABS: BASO # 0.03 K/mm3 (0.0-2.0); BASO % 0.1 % (0.0-3.0); GRAN # 18.29 (1.4-6.5); GRAN % 86.6 % (50.0-68.0); LYMPH # 1.8 (1.2-3.4); LYMPH % 8.4 % (22.0-35.0); MEAN CELL VOLUME 92.4 fl (80.0-105.0); MEAN CORPUSCULAR HEMOGLOBIN 30.2 pg (25.0-35.0); MEAN CORPUSCULAR HGB CONC 32.7 g/dl (31.0-37.0); MEAN PLATELET VOLUME 8.4 fl (7.0-11.0); MONO % 4.9 % (1.0-6.0); RBC 3.31 10^6/uL (3.5-6.1); RED CELL DISTRIBUTION WIDTH 14.6 % (11.5-14.5); WHITE BLOOD COUNT 21.2 10^3/ul (4.5-11.0)
[2017-06-06 08:35] LABS: HDL CHOLESTEROL 11 mg/dL (29-60)
[2017-06-06 08:47] LABS: IRON 16 ug/dL (45-180)
[2017-06-06 08:48] LABS: ALB/GLOB RATIO 0.7 (1.1-1.8); ALBUMIN 2.6 g/dL (3.0-4.8); ALT/SGPT 25 U/L (7-56); AST/SGOT 20 U/L (17-59); BLOOD UREA NITROGEN 11 mg/dL (7-21); CALCIUM 8.3 mg/dL (8.4-10.5); GFR AFRICAN-AMERICAN > 60; GFR NON-AFRICAN AMERICAN > 60
[2017-06-06 08:56] LABS: % IRON SATURATION 10 % (20-55); TOTAL IRON BINDING CAPACITY 161 ug/dL (261-462)
[2017-06-06 09:22] LABS: LDL CHOLESTEROL 109 mg/dL (0-129)
[2017-06-06] MEDS ORDERED: cefTRIAXone 1 gm 1 GM/100 ML BAG IVPB SCH (10:00)
[2017-06-06] MEDS: Multivitamin With Minerals Tab PO SCH (10:17)
[2017-06-06] MEDS: guaiFENesin DM 100 mg-10 mg/5 ml UD PO PRN ×2 (10:17→18:22)
--- NOTE | 2017-06-06 10:17 | CARD ---
APPROVED REPORT EKG Measurement Heart [id number] [place] [id number] [id number] <Conclusion> Normal sinus rhythm Mildly prolonged QTc
[2017-06-06] MEDS: Sodium Chloride 0.9% 1,000 ML IV SCH ×2 (10:20→23:59)
[2017-06-06] MEDS: Piperacillin/Tazobact 3.375 gm 100 ML IVPB SCH ×3 (12:29→23:56)
--- NOTE | 2017-06-06 14:12 | CP.PCM.PN ---
<Kaci Pappas - Last Filed: 06/06/17 16:04> Subjective - Date & Time of Evaluation Date of Evaluation: 06/06/17 Time of Evaluation: 14:12 - Subjective Subjective: Kaci Pappas, PGY1, Medicine Progress Note for Dr Milner: Patient seen and examined at bedside. No acute events overnight. Pt c/o nonproductive cough, denies fever, chills, nausea, vomiting, abdominal pain, diarrhea. States that he would like to go home. Objective - Vital Signs/Intake and Output Vital Signs (last 24 hours): Temp Pulse Resp BP Pulse Ox 99.8 F H 86 20 119/68 98 06/06/17 07:56 06/06/17 07:56 06/06/17 07:56 06/06/17 07:56 06/06/17 07:56 Intake and Output: 06/06/17 06/06/17 06:59 18:59 Intake Total 900 Balance 900 - Medications Medications: Current Medications Acetaminophen (Tylenol 325mg Tab) 650 mg PO Q6H PRN PRN Reason: Fever >100.4 F Last Admin: 06/05/17 22:18 Dose: 650 mg Albuterol/Ipratropium (Duoneb 3 Mg/0.5 Mg (3 Ml) Ud) 3 ml IH Q2H PRN PRN Reason: Shortness of Breath Benzocaine/Menthol (Cepacol Sore Throat) 1 aneudy MT Q2H PRN PRN Reason: Sore Throat Last Admin: 06/05/17 17:54 Dose: 1 aneudy Folic Acid (Folic Acid) 1 mg PO DAILY [facility] Last Admin: 06/06/17 10:17 Dose: 1 mg Guaifenesin/Dextromethorphan (Robitussin Dm) 5 ml PO Q4H PRN PRN Reason: Cough Last Admin: 06/06/17 10:17 Dose: 5 ml Heparin Sodium (Porcine) (Heparin) 5,000 units SC Q12 [facility] PRN Reason: Protocol Last Admin: 06/06/17 10:38 Dose: Not Given Sodium Chloride (Sodium Chloride 0.9%) 1,000 mls @ 100 mls/hr IV .Q10H [facility] Last Admin: 06/06/17 10:20 Dose: 100 mls/hr Piperacillin Sod/Tazobactam Sod (Zosyn 3.375 In Ns 100ml) 100 mls @ 200 mls/hr IVPB Q6 [facility] PRN Reason: Protocol Stop: 07/04/17 12:01 Last Admin: 06/06/17 12:29 Dose: 200 mls/hr Ibuprofen (Motrin Tab) 400 mg PO Q6H PRN PRN Reason: Pain, moderate (4-7) Multivitamins/Minerals (Therapeutic-M Tab) 1 tab PO 0800 [facility] Last Admin: 06/06/17 10:17 Dose: 1 tab Nicotine (Nicoderm Cq) 1 patch TD DAILY [facility] Last Admin: 06/06/17 10:17 Dose: 1 patch Pantoprazole Sodium (Protonix Ec Tab) 40 mg PO 0600 [facility] Last Admin: 06/06/17 06:38 Dose: 40 mg Thiamine HCl (Vitamin B1 Tab) 100 mg PO DAILY [facility] Last Admin: 06/06/17 10:17 Dose: 100 mg - Labs Labs: 06/06/17 08:00 06/06/17 08:00 APTT 30.8 Seconds (25.1-36.5) 06/06/17 08:00 - Constitutional Appears: Non-toxic, No Acute Distress, Chronically Ill - Head Exam Head Exam: ATRAUMATIC, NORMOCEPHALIC - Eye Exam Eye Exam: EOMI, PERRL. absent: Conjunctival injection, Nystagmus, Periorbital swelling, Scleral icterus Pupil Exam: NORMAL ACCOMODATION, PERRL. absent: Fixed, Irregular, Unequal - ENT Exam ENT Exam: Mucous Membranes Moist - Neck Exam Neck Exam: Full ROM, Normal Inspection. absent: Lymphadenopathy, Tenderness - Respiratory Exam Respiratory Exam: Decreased Breath Sounds. absent: Accessory Muscle Use, Rhonchi, Wheezes, Respiratory Distress, Stridor - Cardiovascular Exam Cardiovascular Exam: RRR, +S1, +S2. absent: Murmur - GI/Abdominal Exam GI & Abdominal Exam: Soft, Normal Bowel Sounds. absent: Distended, Firm, Guarding, Tenderness, Mass, Organomegaly, Rebound - Extremities Exam Extremities Exam: Normal Inspection. absent: Calf Tenderness, Pedal Edema - Back Exam Back Exam: NORMAL INSPECTION - Neurological Exam Neurological Exam: Alert, Awake, Oriented x3 - Psychiatric Exam Psychiatric exam: Agitated, Normal Affect - Skin Skin Exam: Dry, Normal Color, Warm Assessment and Plan - Assessment and Plan (Free Text) Assessment: 57 year old male with a past medical history significant for alcohol abuse, HTN and HLD who presents with dry cough with associated chills and throat irritation for a duration of four to five days. Patient was found to be febrile and with tachycardia and leukocytosis in the ED. A chest x-ray and chest CT were done and showed multiple cavitary and necrotic masses the right lung and left upper lobe infiltrates. Patient was started on Unasyn and Rocephin, with ID and Pulmonology consulted. He was also placed on isolation precautions until TB can be ruled out. 1. Cavitary Lesions of Right Lower Lobe -Chest X-Ray showed large superior segment right lower lobe cavitary lesion -Chest CT showed multiple cavitary and necrotic masses the right lung and subsegmental infiltrates in the left upper lobe -Previous Chest X-Ray taken on 05/25/16 showed hyperventilation and chronic changes consistent with emphysema and no masses or cavitary lesions -Noted to have fever to 102.2, leukocytosis to 18.2, tachycardia to 103 and with no tachypnea -Influenza serology negative -Quantiferon, procalcitonin, blood, AFB and sputum cultures pending -Duonebs Q2 PRN and Oxygen Therapy via NC -Robitussin DM 5ml PO Q6 PRN and Cepacol 1 aneudy MT Q2 PRN -Tylenol PRN for fever -Ibuprofen 400mg PO Q6H PRN for pain control -Airborne and Contact precautions -Pulmonology and ID consulted, all recommendations appreciated -Started on IV Zosyn 2. History of Alcohol Abuse -Alcohol level <10 -Reports quitting two months ago -Folic acid, Thiamine and MV supplementation -CIWA score 0 3. History of Tobacco Abuse -Nicotine 21mg/day TD 4. History of HLD -trig 208, chol 148, hdl 11, ldl 109 -started on lipitor 20 mg daily GI Prophylaxis: Protonix DVT Prophylaxis: Heparin Patient seen and case discussed with attending, Dr. Milner. <Darlyn Milner - Last Filed: 06/06/17 17:36> Objective - Vital Signs/Intake and Output Vital Signs (last 24 hours): Temp Pulse Resp BP Pulse Ox 99.8 F H 86 20 119/68 98 06/06/17 07:56 06/06/17 07:56 06/06/17 07:56 06/06/17 07:56 06/06/17 07:56 Intake and Output: 06/06/17 06/06/17 06:59 18:59 Intake Total 900 Balance 900 - Medications Medications: Current Medications Acetaminophen (Tylenol 325mg Tab) 650 mg PO Q6H PRN PRN Reason: Fever >100.4 F Last Admin: 06/05/17 22:18 Dose: 650 mg Albuterol/Ipratropium (Duoneb 3 Mg/0.5 Mg (3 Ml) Ud) 3 ml IH Q2H PRN PRN Reason: Shortness of Breath Atorvastatin Calcium (Lipitor) 20 mg PO DIN [facility] Benzocaine/Menthol (Cepacol Sore Throat) 1 aneudy MT Q2H PRN PRN Reason: Sore Throat Last Admin: 06/05/17 17:54 Dose: 1 aneudy Folic Acid (Folic Acid) 1 mg PO DAILY [facility] Last Admin: 06/06/17 10:17 Dose: 1 mg Guaifenesin/Dextromethorphan (Robitussin Dm) 5 ml PO Q4H PRN PRN Reason: Cough Last Admin: 06/06/17 10:17 Dose: 5 ml Heparin Sodium (Porcine) (Heparin) 5,000 units SC Q12 [facility] PRN Reason: Protocol Last Admin: 06/06/17 10:38 Dose: Not Given Sodium Chloride (Sodium Chloride 0.9%) 1,000 mls @ 100 mls/hr IV .Q10H [facility] Last Admin: 06/06/17 10:20 Dose: 100 mls/hr Piperacillin Sod/Tazobactam Sod (Zosyn 3.375 In Ns 100ml) 100 mls @ 200 mls/hr IVPB Q6 [facility] PRN Reason: Protocol Stop: 07/04/17 12:01 Last Admin: 06/06/17 12:29 Dose: 200 mls/hr Ibuprofen (Motrin Tab) 400 mg PO Q6H PRN PRN Reason: Pain, moderate (4-7) Multivitamins/Minerals (Therapeutic-M Tab) 1 tab PO 0800 [facility] Last Admin: 06/06/17 10:17 Dose: 1 tab Nicotine (Nicoderm Cq) 1 patch TD DAILY [facility] Last Admin: 06/06/17 10:17 Dose: 1 patch Pantoprazole Sodium (Protonix Ec Tab) 40 mg PO 0600 [facility] Last Admin: 06/06/17 06:38 Dose: 40 mg Thiamine HCl (Vitamin B1 Tab) 100 mg PO DAILY [facility] Last Admin: 06/06/17 10:17 Dose: 100 mg - Labs Labs: 06/06/17 08:00 06/06/17 08:00 APTT 30.8 Seconds (25.1-36.5) 06/06/17 08:00 Attending/Attestation - Attestation I have personally seen and examined this patient.: Yes I have fully participated in the care of the patient.: Yes I have reviewed all pertinent clinical information, including history, physical exam and plan: Yes Notes (Text): 06/06/17 17:35 57 year old male with past medical history of alcohol abuse and dyslipidemia and active smoker who presented with complaint of cough and shortness of breath. In ER he was found to have fever of 102 with tachycardia and leukocytosis. CXR/ CT chest showed multiple cavitary and necrotics masses in lungs. ID and pulmonary consultations were requested. Continue with iv antibiotics. Will follow up on cultures including sputum and AFB. He was counselled on smoking cessation and alcohol abstinence. Darlyn Milner MD Hospitalist.
[2017-06-06] MEDS: Vancomycin 1gm in NS 250ml 1 GM/250 ML BAG IVPB SCH (21:42)
[2017-06-06] MEDS: MethylPREDNISolone 40 mg Vial IVP SCH (23:55)
[2017-06-07 05:48] LABS: TB ANTIGEN MINUS NIL 0.05 IU/mL
[2017-06-07] MEDS: Pantoprazole 40 mg EC Tab PO SCH (05:57)
[2017-06-07] MEDS: Piperacillin/Tazobact 3.375 gm 100 ML IVPB SCH ×3 (05:57→17:22)
--- NOTE | 2017-06-07 07:34 | CON ---
DATE: 06/06/2017 CHIEF COMPLAINT: Cough and pulmonary symptoms times several days. HISTORY OF PRESENT ILLNESS: This is a 57-year-old male who was born in [place], history of alcohol abuse, hypertension, hyperlipidemia, long-time smoker. The patient's pulmonary symptoms and cough got worse in the last week. He has been having fevers from past week. Patient has no abdominal pain, diarrhea, or constipation. No headache. No neck pain. No sore throat. PAST MEDICAL HISTORY: Significant for alcohol abuse, hypertension, and hyperlipidemia. PAST SURGICAL HISTORY: Patient had appendectomy as a child. Patient was born in [facility]; however, recently he had extensive travel in [place], including [place], [place], [place]. He is to a woman from [place]. ALLERGIES: PATIENT HAS NO KNOWN ALLERGY. PHYSICAL EXAMINATION: VITAL SIGNS: Temperature is 101.4, heart rate of 93, respiratory rate of 20, blood pressure is 122/60. HEENT: Unremarkable. NECK: Supple. LUNGS: Have decreased breath sounds. HEART: Normal S1 and S2. ABDOMEN: Soft and nontender. LABORATORY EXAMINATION: Reveals the patient's white count is 18,000, hemoglobin of 10, platelets of 565 with 86% granulocytosis, sed rate of 121. BUN of 16, creatinine of 0.6. Procalcitonin is 0.75. Serology; influenza is negative, blood cultures are no growth. History and physical examination is noted. CAT scan of the chest is reviewed. ASSESSMENT AND PLAN: This is a 57-year-old male who is from [place], with history of alcohol abuse, hypertension, hyperlipidemia, with severe sepsis, right lower lobe cavitary lesion, must rule out an abscess formation, with Gram-negative polymicrobial, staphylococcus versus a malignancy. We will treat the patient with vancomycin and Zosyn. Tuberculosis workup is in progress. We will order AFB smears, cultures, and QuantiFERON and Pulmonary consultation is recommended. We will follow closely with you. Angel Talbert MD
[2017-06-07 08:04] LABS: BASO # 0.01 K/mm3 (0.0-2.0); BASO % 0.1 % (0.0-3.0); GRAN # 11.36 (1.4-6.5); GRAN % 91.9 % (50.0-68.0); HEMOGLOBIN 9.2 g/dL (14.0-18.0); LYMPH # 0.7 (1.2-3.4); LYMPH % 5.8 % (22.0-35.0); MEAN CELL VOLUME 91.2 fl (80.0-105.0); MEAN CORPUSCULAR HGB CONC 32.9 g/dl (31.0-37.0); MEAN PLATELET VOLUME 8.3 fl (7.0-11.0); MONO # 0.3 (0.1-0.6); MONO % 2.2 % (1.0-6.0); PLATELET COUNT 453 10^3/uL (120.0-450.0); RBC 3.07 10^6/uL (3.5-6.1); RED CELL DISTRIBUTION WIDTH 14.5 % (11.5-14.5); WHITE BLOOD COUNT 12.4 10^3/ul (4.5-11.0)
[2017-06-07] MEDS: Multivitamin With Minerals Tab PO SCH (08:13)
[2017-06-07] MEDS: Vancomycin 1gm in NS 250ml 1 GM/250 ML BAG IVPB SCH ×2 (08:13→21:44)
[2017-06-07 08:35] LABS: ALB/GLOB RATIO 0.7 (1.1-1.8); ALBUMIN 2.4 g/dL (3.0-4.8); ALT/SGPT 26 U/L (7-56); AST/SGOT 23 U/L (17-59); BLOOD UREA NITROGEN 8 mg/dL (7-21); GFR AFRICAN-AMERICAN > 60; GFR NON-AFRICAN AMERICAN > 60
[2017-06-07 08:43] LABS: MONOCYTE 1 % (1.0-6.0); NEUTROPHIL 99 % (50.0-70.0)
[2017-06-07 08:44] LABS: PLATELET ESTIMATE HIGH (NORMAL)
--- NOTE | 2017-06-07 09:15 | CON ---
DATE: 06/06/2017 PULMONARY CONSULTATION REFERRING PHYSICIAN: Dr. Milner. REASON FOR CONSULTATION: Multilobe pneumonia with abscess. HISTORY OF PRESENT ILLNESS: This is a 57-year-old gentleman who has a known history of alcohol abuse, multiple admission for public intoxication, also with hypertension, hyperlipidemia, chronic obstructive lung disease, brought in the emergency room with cough, shortness of breath, fever. According to patient, he has been coughing the last couple of months. From the last 3 to 5 days his cough has really increased. According to history, he had a public intoxication in 03/2017, brought into ER, also claims recently he traveled overseas including [facility] and [facility], that was in 12/2016. He recently lost some weight. 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 No , shortness of breath, fever. No vomiting, no hematuria, no diarrhea, no leg swelling reported. PAST MEDICAL HISTORY: Chronic obstructive lung disease, hypertension, hyperlipidemia, and history of alcohol intoxication. FAMILY HISTORY: No significant cardiopulmonary disease reported. ALLERGIES: NONE KNOWN. SOCIAL HISTORY: Active smoker and history of excessive alcohol use. According to patient, his last alcohol use was in March. MEDICATIONS: He is on Cepacol lozenges q. 12 hour p.r.n., albuterol/Atrovent nebulizer q. 12 hours p.r.n., folic acid 1 mg daily, heparin 5000 units subcu q. 12 hour, Lipitor 20 mg daily, Motrin 400 mg q. 6 hours, Nicoderm patch daily, Protonix 40 mg daily, Robitussin DM 5 mL q. 4 hours p.r.n., IV fluid normal saline 100 mL per hour, multivitamins daily, Tylenol p.r.n., vancomycin 1 g IV q. 12 hours, vitamin B 100 mg daily, Zosyn 3.375 gm q.6 hours. REVIEW OF SYSTEMS: No headache. No rhinitis. Has cough, discolored sputum production, fever, chills, night sweats. No nausea. No vomiting. No diarrhea. No leg pain or leg swelling. PHYSICAL EXAMINATION: GENERAL: Lying in the bed, in no acute distress. VITAL SIGNS: T-max is 102.8, heart rate is 86, respiratory rate is 20, blood pressure 119/68, and pulse oximetry is 98% on room air. HEENT: Moist mucous membranes. Crowded airway. Mallampati is IV. NECK: Supple. No JVD. LUNGS: Have scattered rhonchus and wheezing. HEART: S1 and S2. ABDOMEN: Soft, nontender, no organomegaly. EXTREMITIES: No edema. NEUROLOGICAL: Awake, alert, follows simple commands. LABORATORY DATA: Shows hemoglobin 10.0, hematocrit 30.6, WBC 21,000, and platelets 584. PTT is 31. Blood gas shows pH of 7.52, pCO2 of 35, O2 of 56. Sodium 130, potassium 3.4, chloride 97, bicarbonate 26, BUN 11, creatinine 0.6, glucose 118, calcium 8.3, iron is 16, ferritin is 422. AST 20, ALT 25, alk phos is 113, cholesterol 148, triglyceride is , procalcitonin 0.75. Influenza A and B have been negative. Sputum gram stain is pending. Blood culture, there is no growth. There is a CAT scan of the chest done, which shows multiple cavitary lesion and in the right lung. Also there is infiltrate in the left upper lung. IMPRESSION AND PLAN: Probably aspiration pneumonia with lung abscess, history of alcohol abuse and complaint of chronic obstructive pulmonary disease, hypertension, hyperlipidemia. Agree with the present management. He is on broad spectrum antibiotic, covering healthcare associated organism, covering gram-negative and gram-positive. Also, we will give thiamine 100 mg daily. We will also start Solu-Medrol 20 mg q.8 hours with a component of chronic obstructive pulmonary disease. Gastric prophylaxis. Deep venous thrombosis prophylaxis. Agree with isolating. We will send sputum for AFB, hopefully this is going to be negative. Patient urged to stop smoking and urged to stop excessive alcohol use. Thank you and we will follow with you. Joby Sheppard MD
[2017-06-07] MEDS: MethylPREDNISolone 40 mg Vial IVP SCH ×2 (10:54→21:41)
[2017-06-07] MEDS: guaiFENesin DM 100 mg-10 mg/5 ml UD PO PRN (10:54)
[2017-06-07] MEDS ORDERED: Potassium Chloride 10 mEq ER Tab PO STA (11:37)
--- NOTE | 2017-06-07 12:21 | CP.PCM.PN ---
<Kaci Pappas - Last Filed: 06/07/17 12:17> Subjective - Date & Time of Evaluation Date of Evaluation: 06/07/17 Time of Evaluation: 12:17 - Subjective Subjective: Kaci Pappas, PGY1, Medicine Progress Note for Dr Milner: Patient seen and examined at bedside. No acute events overnight. Pt reports increased productive cough, denies fever, chills, nausea, vomiting, abdominal pain, diarrhea. Pt tolerating PO diet well. Encourage pt to ambulate in his room. Objective - Vital Signs/Intake and Output Vital Signs (last 24 hours): Temp Pulse Resp BP Pulse Ox 98.9 F 101 H 19 132/77 93 L 06/07/17 08:49 06/07/17 08:49 06/07/17 08:49 06/07/17 08:49 06/07/17 08:49 Intake and Output: 06/07/17 06/07/17 06:59 18:59 Intake Total 2700 Output Total 0 Balance 2700 - Medications Medications: Current Medications Acetaminophen (Tylenol 325mg Tab) 650 mg PO Q6H PRN PRN Reason: Fever >100.4 F Last Admin: 06/07/17 06:48 Dose: 650 mg Albuterol/Ipratropium (Duoneb 3 Mg/0.5 Mg (3 Ml) Ud) 3 ml IH Q2H PRN PRN Reason: Shortness of Breath Atorvastatin Calcium (Lipitor) 20 mg PO DIN [facility] Last Admin: 06/06/17 18:22 Dose: 20 mg Benzocaine/Menthol (Cepacol Sore Throat) 1 aneudy MT Q2H PRN PRN Reason: Sore Throat Last Admin: 06/05/17 17:54 Dose: 1 aneudy Benzonatate (Tessalon Perles) 100 mg PO TID [facility] Folic Acid (Folic Acid) 1 mg PO DAILY [facility] Last Admin: 06/07/17 10:54 Dose: 1 mg Guaifenesin/Dextromethorphan (Robitussin Dm) 5 ml PO Q4H PRN PRN Reason: Cough Last Admin: 06/07/17 10:54 Dose: 5 ml Heparin Sodium (Porcine) (Heparin) 5,000 units SC Q12 [facility]IPOLITO PRN Reason: Protocol Last Admin: 06/07/17 10:55 Dose: Not Given Sodium Chloride (Sodium Chloride 0.9%) 1,000 mls @ 100 mls/hr IV .Q10H [facility] Last Admin: 06/06/17 23:59 Dose: 100 mls/hr Piperacillin Sod/Tazobactam Sod (Zosyn 3.375 In Ns 100ml) 100 mls @ 200 mls/hr IVPB Q6 [facility]O PRN Reason: Protocol Stop: 07/04/17 12:01 Last Admin: 06/07/17 05:57 Dose: 200 mls/hr Vancomycin HCl (Vancomycin 1gm) 1 gm in 250 mls @ 167 mls/hr IVPB Q12H [facility] PRN Reason: Protocol Stop: 07/04/17 19:46 Last Admin: 06/07/17 08:13 Dose: 167 mls/hr Ibuprofen (Motrin Tab) 400 mg PO Q6H PRN PRN Reason: Pain, moderate (4-7) Methylprednisolone (Solu-Medrol) 20 mg IVP Q12 [facility] Last Admin: 06/07/17 10:54 Dose: 20 mg Multivitamins/Minerals (Therapeutic-M Tab) 1 tab PO 0800 [facility] Last Admin: 06/07/17 08:13 Dose: 1 tab Nicotine (Nicoderm Cq) 1 patch TD DAILY [facility] Last Admin: 06/07/17 10:54 Dose: 1 patch Pantoprazole Sodium (Protonix Ec Tab) 40 mg PO 0600 [facility] Last Admin: 06/07/17 05:57 Dose: 40 mg Thiamine HCl (Vitamin B1 Tab) 100 mg PO DAILY [facility] Last Admin: 06/07/17 10:54 Dose: 100 mg - Labs Labs: 06/07/17 07:00 06/07/17 07:00 APTT 30.8 Seconds (25.1-36.5) 06/06/17 08:00 - Additional Findings Additional findings: - Constitutional Appears: Non-toxic, No Acute Distress, Chronically Ill - Head Exam Head Exam: ATRAUMATIC, NORMOCEPHALIC - Eye Exam Eye Exam: EOMI, PERRL. absent: Conjunctival injection, Nystagmus, Periorbital swelling, Scleral icterus Pupil Exam: NORMAL ACCOMODATION, PERRL. absent: Fixed, Irregular, Unequal - ENT Exam ENT Exam: Mucous Membranes Moist - Neck Exam Neck Exam: Full ROM, Normal Inspection. absent: Lymphadenopathy, Tenderness - Respiratory Exam Respiratory Exam: Decreased Breath Sounds. absent: Accessory Muscle Use, Rhonchi, Wheezes, Respiratory Distress, Stridor - Cardiovascular Exam Cardiovascular Exam: RRR, +S1, +S2. absent: Murmur - GI/Abdominal Exam GI & Abdominal Exam: Soft, Normal Bowel Sounds. absent: Distended, Firm, Guarding, Tenderness, Mass, Organomegaly, Rebound - Extremities Exam Extremities Exam: Normal Inspection. absent: Calf Tenderness, Pedal Edema - Back Exam Back Exam: NORMAL INSPECTION - Neurological Exam Neurological Exam: Alert, Awake, Oriented x3 - Psychiatric Exam Psychiatric exam: Agitated, Normal Affect - Skin Skin Exam: Dry, Normal Color, Warm Assessment and Plan - Assessment and Plan (Free Text) Assessment: 57 year old male with a past medical history significant for alcohol abuse, HTN and HLD who presents with dry cough with associated chills and throat irritation for a duration of four to five days. Patient was found to be febrile and with tachycardia and leukocytosis in the ED. A chest x-ray and chest CT were done and showed multiple cavitary and necrotic masses the right lung and left upper lobe infiltrates. Patient started on Vancomycin and Zosyn per ID, awaiting AFB cultures: 1. Cavitary Lesions of Right Lower Lobe 2/2 TB vs aspiration pneumonia (in alcoholic) vs fungal etiology -Chest X-Ray showed large superior segment right lower lobe cavitary lesion -Chest CT showed multiple cavitary and necrotic masses the right lung and subsegmental infiltrates in the left upper lobe -Previous Chest X-Ray taken on 05/25/16 showed hyperventilation and chronic changes consistent with emphysema and no masses or cavitary lesions -Noted to have fever to 102.2, leukocytosis to 18.2, tachycardia to 103 and with no tachypnea -Influenza serology negative -Quantiferon negative, procalcitonin 0.75, blood cultures neg to date. Awaiting AFB and sputum cultures -Duonebs Q2 PRN and Oxygen Therapy via NC -Robitussin DM 5ml PO Q6 PRN and Cepacol 1 aneudy MT Q2 PRN. Added Tessalon perles. -Tylenol PRN for fever -Ibuprofen 400mg PO Q6H PRN for pain control -Airborne and Contact precautions -Pulmonology and ID consulted, all recommendations appreciated -C/w IV Zosyn and Vancomycin 2. History of Alcohol Abuse -Alcohol level <10 -Reports quitting two months ago -Folic acid, Thiamine and MV supplementation -CIWA score 0 3. History of Tobacco Abuse -Nicotine 21mg/day TD 4. History of HLD -trig 208, chol 148, hdl 11, ldl 109 -started on lipitor 20 mg daily GI Prophylaxis: Protonix DVT Prophylaxis: Heparin Patient seen and case discussed with attending, Dr. Milner. <Darlyn Milner - Last Filed: 06/07/17 14:23> Objective - Vital Signs/Intake and Output Vital Signs (last 24 hours): Temp Pulse Resp BP Pulse Ox 98.9 F 101 H 19 132/77 93 L 06/07/17 08:49 06/07/17 08:49 06/07/17 08:49 06/07/17 08:49 06/07/17 08:49 Intake and Output: 06/07/17 06/07/17 06:59 18:59 Intake Total 2700 Output Total 0 Balance 2700 - Medications Medications: Current Medications Acetaminophen (Tylenol 325mg Tab) 650 mg PO Q6H PRN PRN Reason: Fever >100.4 F Last Admin: 06/07/17 06:48 Dose: 650 mg Albuterol/Ipratropium (Duoneb 3 Mg/0.5 Mg (3 Ml) Ud) 3 ml IH Q2H PRN PRN Reason: Shortness of Breath Atorvastatin Calcium (Lipitor) 20 mg PO DIN [facility] Last Admin: 06/06/17 18:22 Dose: 20 mg Benzocaine/Menthol (Cepacol Sore Throat) 1 aneudy MT Q2H PRN PRN Reason: Sore Throat Last Admin: 06/05/17 17:54 Dose: 1 aneudy Benzonatate (Tessalon Perles) 100 mg PO TID [facility] Last Admin: 06/07/17 14:16 Dose: 100 mg Folic Acid (Folic Acid) 1 mg PO DAILY [facility] Last Admin: 06/07/17 10:54 Dose: 1 mg Guaifenesin/Dextromethorphan (Robitussin Dm) 5 ml PO Q4H PRN PRN Reason: Cough Last Admin: 06/07/17 10:54 Dose: 5 ml Heparin Sodium (Porcine) (Heparin) 5,000 units SC Q12 [facility]OL[facility]O PRN Reason: Protocol Last Admin: 06/07/17 10:55 Dose: Not Given Sodium Chloride (Sodium Chloride 0.9%) 1,000 mls @ 100 mls/hr IV .Q10H [facility] Last Admin: 06/06/17 23:59 Dose: 100 mls/hr Piperacillin Sod/Tazobactam Sod (Zosyn 3.375 In Ns 100ml) 100 mls @ 200 mls/hr IVPB Q6 [facility] PRN Reason: Protocol Stop: 07/04/17 12:01 Last Admin: 06/07/17 12:14 Dose: 200 mls/hr Vancomycin HCl (Vancomycin 1gm) 1 gm in 250 mls @ 167 mls/hr IVPB Q12H [facility] PRN Reason: Protocol Stop: 07/04/17 19:46 Last Admin: 06/07/17 08:13 Dose: 167 mls/hr Ibuprofen (Motrin Tab) 400 mg PO Q6H PRN PRN Reason: Pain, moderate (4-7) Methylprednisolone (Solu-Medrol) 20 mg IVP Q12 [facility] Last Admin: 06/07/17 10:54 Dose: 20 mg Multivitamins/Minerals (Therapeutic-M Tab) 1 tab PO 0800 [facility] Last Admin: 06/07/17 08:13 Dose: 1 tab Nicotine (Nicoderm Cq) 1 patch TD DAILY [facility] Last Admin: 06/07/17 10:54 Dose: 1 patch Pantoprazole Sodium (Protonix Ec Tab) 40 mg PO 0600 [facility] Last Admin: 06/07/17 05:57 Dose: 40 mg Thiamine HCl (Vitamin B1 Tab) 100 mg PO DAILY [facility] Last Admin: 06/07/17 10:54 Dose: 100 mg - Labs Labs: 06/07/17 07:00 06/07/17 07:00 APTT 30.8 Seconds (25.1-36.5) 06/06/17 08:00 Attending/Attestation - Attestation I have personally seen and examined this patient.: Yes I have fully participated in the care of the patient.: Yes I have reviewed all pertinent clinical information, including history, physical exam and plan: Yes Notes (Text): 06/07/17 14:22 57 year old male with past medical history of alcohol abuse and dyslipidemia and active smoker who presented with complaint of cough and shortness of breath. In ER he was found to have fever of 102 with tachycardia and leukocytosis. CXR/ CT chest showed multiple cavitary and necrotics masses in lungs. ID and pulmonary consultations were appreciated. Continue with iv antibiotics and iv steroids. Will follow up on cultures including sputum and AFB. Fever trend and leukocytosis have come down. He was counselled on smoking cessation and alcohol abstinence. Continue with statin for dyslipidemia. Darlyn Milner MD Hospitalist.
[2017-06-07] MEDS: Sodium Chloride 0.9% 1,000 ML IV SCH (15:24)
--- NOTE | 2017-06-07 18:12 | PN ---
DATE: 06/07/2017 SUBJECTIVE: The patient is in bed, in no acute distress, nontoxic, was seen early this morning. PHYSICAL EXAMINATION: VITAL SIGNS: Temperature is 98, blood pressure is 130/70, respiratory rate of 16. HEENT: Examination of HEENT is unremarkable. NECK: Supple. LUNGS: Have decreased breath sounds. HEART: Normal S1 and S2. ABDOMEN: Soft. LABORATORY DATA: Laboratory examination reveals a white count is down to 12,400, hemoglobin of 9, sed rate is 121, platelets are 453. BUN of 8, creatinine of 0.8, procalcitonin 0.75. Toxicology is noted. Serology reveals TB QuantiFERON is negative. HIV is negative. Influenza is negative. Microbiology reveals sputum culture, no growth. Gram stain on the sputum shows many gram-negative rods and the blood cultures are negative. ASSESSMENT AND PLAN: A 57-year-old male who is born in [facility], alcohol use, hypertension, hyperlipidemia and admitted with severe sepsis and the right lower lobe cavitary lesion, rule out abscess, probable Gram negative such as Klebsiella versus polymicrobial versus a malignancy. I doubt tuberculosis in this patient. We will continue the current regimen of Zosyn and vancomycin. We will follow with you. Angel Talbert MD
[2017-06-08] MEDS: guaiFENesin DM 100 mg-10 mg/5 ml UD PO PRN (00:07)
[2017-06-08] MEDS: Piperacillin/Tazobact 3.375 gm 100 ML IVPB SCH ×5 (00:07→22:59)
--- NOTE | 2017-06-08 00:19 | PN ---
DATE: 06/07/2017 REFERRING PHYSICIAN: Dr. Milner. SUBJECTIVE: Patient is lying in the bed, head at 45 degrees. Feels little better. Still has cough and shortness of breath. No nausea. No vomiting, diarrhea. No leg pain or leg swelling. is at bedside. OBJECTIVE: PHYSICAL EXAMINATION GENERAL: In no acute distress. VITAL SIGNS: Temperature is 98, heart rate is 101, respiratory rate is 20, blood pressure 132/77, pulse ox 93% on room air. HEENT: Moist mucous membranes. Crowded airway. Mallampati score is 4. NECK: Supple. No JVD. LUNGS: Have a scattered rhonchi and wheezing. HEART: S1 and S2. ABDOMEN: Soft, nontender. No organomegaly. EXTREMITIES: There is no edema. NEUROLOGIC: Awake and alert. Follows simple command. MEDICATIONS: He is on Cepacol lozenges q. 12 hour p.r.n., DuoNeb q.12 hours p.r.n., folic acid 1 mg daily, heparin 5000 units subcutaneous q. 12 hours, Lipitor 20 mg daily, Motrin 400 mg q. 6 hours p.r.n., Nicoderm patch daily, Protonix 40 mg daily, Robitussin DM 5 mL q. 4 hours p.r.n., IV fluid normal saline 100 mL per hour, Solu-Medrol 20 mg q. 12 hours, Tessalon Perles 100 mg three times a day, multivitamins daily, Tylenol p.r.n., vancomycin 1 g IV q. 12 hours, vitamin B 100 mg daily, Zosyn 3.375 gm IV q.6 hours. LABORATORY DATA: Shows hemoglobin 9.2, hematocrit 28.7, WBC 12.4, platelet count is 453. Sodium 136, potassium 3.1, chloride 104, bicarbonate 22, BUN 8, creatinine 0.5, glucose 220, calcium is 8.0, iron is 16, ferritin is 422, AST 23, ALT 26, alk phos is 98, albumin is 2.4. HIV-1 and 2 nonreactive. TB Gold test is negative. Sputum AFB smear is negative. IMPRESSION AND PLAN: Probably aspiration pneumonia with lung abscess and multilobar pneumonia secondary to intoxication from alcohol, also has a component of chronic obstructive lung disease, hypertension, hyperlipidemia. Spoke to patient and patient's at bedside. All the questions answered. Continue antibiotic covering anaerobics, gram-negatives, and gram-positives. Keep head elevated at 45 degrees. Continue intravenous and inhaled bronchodilator. Gastric prophylaxis, deep venous thrombosis prophylaxis. Quantitaive TB Gold test is negative. I doubt it is TB. With the smear negative, we can discontinue isolation. Continue incentive spirometer. Thank you and we will follow with you. Joby Sheppard MD
[2017-06-08] MEDS: Sodium Chloride 0.9% 1,000 ML IV SCH ×3 (05:31→20:44)
[2017-06-08] MEDS: Pantoprazole 40 mg EC Tab PO SCH (05:34)
[2017-06-08 08:21] LABS: BASO # 0.01 K/mm3 (0.0-2.0); BASO % 0.1 % (0.0-3.0); GRAN # 9.06 (1.4-6.5); HEMOGLOBIN 9.3 g/dL (14.0-18.0); LYMPH # 0.8 (1.2-3.4); LYMPH % 7.5 % (22.0-35.0); MEAN CELL VOLUME 92.3 fl (80.0-105.0); MEAN CORPUSCULAR HGB CONC 32.5 g/dl (31.0-37.0); MEAN PLATELET VOLUME 8.3 fl (7.0-11.0); MONO # 0.5 (0.1-0.6); MONO % 4.4 % (1.0-6.0); RBC 3.1 10^6/uL (3.5-6.1); RED CELL DISTRIBUTION WIDTH 14.6 % (11.5-14.5); WHITE BLOOD COUNT 10.3 10^3/ul (4.5-11.0)
[2017-06-08 08:55] LABS: ALB/GLOB RATIO 0.7 (1.1-1.8); ALBUMIN 2.5 g/dL (3.0-4.8); ALT/SGPT 43 U/L (7-56); AST/SGOT 83 U/L (17-59); BLOOD UREA NITROGEN 8 mg/dL (7-21); CALCIUM 8.5 mg/dL (8.4-10.5); GFR AFRICAN-AMERICAN > 60; GFR NON-AFRICAN AMERICAN > 60
[2017-06-08] MEDS: MethylPREDNISolone 40 mg Vial IVP SCH ×2 (09:25→22:59)
[2017-06-08] MEDS: Multivitamin With Minerals Tab PO SCH (09:27)
[2017-06-08] MEDS: Vancomycin 1gm in NS 250ml 1 GM/250 ML BAG IVPB SCH ×2 (09:31→20:41)
--- NOTE | 2017-06-08 17:02 | CP.PCM.PN ---
<Brain Frederick - Last Filed: 06/08/17 16:59> Subjective - Date & Time of Evaluation Date of Evaluation: 06/08/17 Time of Evaluation: 16:59 - Subjective Subjective: Medicine Progress Note: Patient seen and assessed at bedside with airborne and contact precautions. No acute events noted overnight by patient or nursing staff. Patient endorses intermittent dry cough but offers no other complaints at this time including fever, chills, headache, chest pain, palpitations, SOB, abdominal pain, N/V/D/C , numbness/tingling/weakness of any extremity or any skin changes. Objective - Vital Signs/Intake and Output Vital Signs (last 24 hours): Temp Pulse Resp BP Pulse Ox 98.3 F 83 18 129/79 93 L 06/08/17 07:30 06/08/17 07:30 06/08/17 07:30 06/08/17 07:30 06/08/17 07:30 Intake and Output: 06/08/17 06/08/17 06:59 18:59 Intake Total 2620 Balance 2620 - Medications Medications: Current Medications Acetaminophen (Tylenol 325mg Tab) 650 mg PO Q6H PRN PRN Reason: Fever >100.4 F Last Admin: 06/07/17 06:48 Dose: 650 mg Albuterol/Ipratropium (Duoneb 3 Mg/0.5 Mg (3 Ml) Ud) 3 ml IH Q2H PRN PRN Reason: Shortness of Breath Atorvastatin Calcium (Lipitor) 20 mg PO DIN COUNTS INCLUDE 234 BEDS AT [facility] Last Admin: 06/07/17 17:22 Dose: 20 mg Benzocaine/Menthol (Cepacol Sore Throat) 1 aneudy MT Q2H PRN PRN Reason: Sore Throat Last Admin: 06/05/17 17:54 Dose: 1 aneudy Benzonatate (Tessalon Perles) 100 mg PO TID COUNTS INCLUDE 234 BEDS AT [facility] Last Admin: 06/08/17 09:27 Dose: 100 mg Folic Acid (Folic Acid) 1 mg PO DAILY COUNTS INCLUDE 234 BEDS AT [facility] Last Admin: 06/08/17 09:27 Dose: 1 mg Guaifenesin/Dextromethorphan (Robitussin Dm) 5 ml PO Q4H PRN PRN Reason: Cough Last Admin: 06/08/17 00:07 Dose: 5 ml Heparin Sodium (Porcine) (Heparin) 5,000 units SC Q12 COUNTS INCLUDE 234 BEDS AT [facility] PRN Reason: Protocol Last Admin: 06/08/17 09:29 Dose: 5,000 units Sodium Chloride (Sodium Chloride 0.9%) 1,000 mls @ 100 mls/hr IV .Q10H COUNTS INCLUDE 234 BEDS AT [facility] Last Admin: 06/08/17 05:31 Dose: 100 mls/hr Piperacillin Sod/Tazobactam Sod (Zosyn 3.375 In Ns 100ml) 100 mls @ 200 mls/hr IVPB Q6 [facility] PRN Reason: Protocol Stop: 07/04/17 12:01 Last Admin: 06/08/17 05:29 Dose: 200 mls/hr Vancomycin HCl (Vancomycin 1gm) 1 gm in 250 mls @ 167 mls/hr IVPB Q12H [facility] PRN Reason: Protocol Stop: 07/04/17 19:46 Last Admin: 06/08/17 09:31 Dose: 167 mls/hr Ibuprofen (Motrin Tab) 400 mg PO Q6H PRN PRN Reason: Pain, moderate (4-7) Methylprednisolone (Solu-Medrol) 20 mg IVP Q12 COUNTS INCLUDE 234 BEDS AT [facility] Last Admin: 06/08/17 09:25 Dose: 20 mg Multivitamins/Minerals (Therapeutic-M Tab) 1 tab PO 0800 COUNTS INCLUDE 234 BEDS AT [facility] Last Admin: 06/08/17 09:27 Dose: 1 tab Nicotine (Nicoderm Cq) 1 patch TD DAILY COUNTS INCLUDE 234 BEDS AT [facility] Last Admin: 06/08/17 09:28 Dose: 1 patch Pantoprazole Sodium (Protonix Ec Tab) 40 mg PO 0600 COUNTS INCLUDE 234 BEDS AT [facility] Last Admin: 06/08/17 05:34 Dose: 40 mg Thiamine HCl (Vitamin B1 Tab) 100 mg PO DAILY COUNTS INCLUDE 234 BEDS AT [facility] Last Admin: 06/08/17 09:27 Dose: 100 mg - Labs Labs: 06/08/17 07:00 06/08/17 07:00 APTT 30.8 Seconds (25.1-36.5) 06/06/17 08:00 - Constitutional Appears: Non-toxic, No Acute Distress - Head Exam Head Exam: ATRAUMATIC, NORMAL INSPECTION, NORMOCEPHALIC - Eye Exam Eye Exam: EOMI, Normal appearance, PERRL Pupil Exam: NORMAL ACCOMODATION, PERRL - ENT Exam ENT Exam: Mucous Membranes Moist, Normal Exam - Neck Exam Neck Exam: Full ROM, Normal Inspection. absent: Lymphadenopathy - Respiratory Exam Respiratory Exam: Decreased Breath Sounds, Wheezes (Trace, end expiratory), NORMAL BREATHING PATTERN. absent: Accessory Muscle Use, Chest Wall Tenderness, Clear to Ausculation Bilateral, Prolonged Expiratory Phase, Rales, Rhonchi, Respiratory Distress, Stridor - Cardiovascular Exam Cardiovascular Exam: REGULAR RHYTHM, +S1, +S2. absent: Murmur - GI/Abdominal Exam GI & Abdominal Exam: Soft, Normal Bowel Sounds. absent: Tenderness - Extremities Exam Extremities Exam: Full ROM, Normal Capillary Refill, Normal Inspection. absent : Calf Tenderness, Joint Swelling, Pedal Edema - Back Exam Back Exam: NORMAL INSPECTION - Neurological Exam Neurological Exam: Alert, Awake, CN II-XII Intact, Oriented x3 - Psychiatric Exam Psychiatric exam: Normal Affect, Normal Mood - Skin Skin Exam: Dry, Intact, Normal Color, Warm Assessment and Plan - Assessment and Plan (Free Text) Assessment: 57 year old male with a past medical history significant for alcohol abuse, HTN and HLD who presents with dry cough with associated chills and throat irritation for a duration of four to five days. Patient was found to be febrile and with tachycardia and leukocytosis in the ED. A chest x-ray and chest CT were done and showed multiple cavitary and necrotic masses the right lung and left upper lobe infiltrates. Patient started on Vancomycin and Zosyn per ID. Patient now with three sputum culture preliminarily negative for AFB. Plan: 1. Cavitary Lesions of Right Lower Lobe -Chest X-Ray showed large superior segment right lower lobe cavitary lesion -Chest CT showed multiple cavitary and necrotic masses the right lung and subsegmental infiltrates in the left upper lobe -Previous Chest X-Ray taken on 05/25/16 showed hyperventilation and chronic changes consistent with emphysema and no masses or cavitary lesions -Three sputum cultures preliminarily negative for AFB and negative quantiferon -Continue with IV Vancomycin Zosyn -Continue IV Solu-Medrol 20mg IVP Q12 -Continue Duonebs Q2 PRN and Oxygen Therapy via NC -Continue Tessalon Perles PRN, Robitussin DM PRN and Cepacol PRN. Added Tessalon perles. -Tylenol PRN for fever -Ibuprofen 400mg PO Q6H PRN for pain control -Airborne and Contact precautions -Pulmonology and ID consulted, all recommendations appreciated 2. History of Alcohol Abuse -Alcohol level <10 on admission -Reports quitting two months ago -Continue Folic acid, Thiamine and MV supplementation 3. History of Tobacco Abuse -Continue Nicotine 21mg/day TD 4. History of HLD -Continue with Lipitor GI Prophylaxis: Protonix DVT Prophylaxis: Heparin Patient seen and case discussed with attending, Dr. Milner. <Darlyn Milner - Last Filed: 06/08/17 17:27> Objective - Vital Signs/Intake and Output Vital Signs (last 24 hours): Temp Pulse Resp BP Pulse Ox 98.3 F 83 18 129/79 93 L 06/08/17 07:30 06/08/17 07:30 06/08/17 07:30 06/08/17 07:30 06/08/17 07:30 Intake and Output: 06/08/17 06/08/17 06:59 18:59 Intake Total 2620 Balance 2620 - Medications Medications: Current Medications Acetaminophen (Tylenol 325mg Tab) 650 mg PO Q6H PRN PRN Reason: Fever >100.4 F Last Admin: 06/07/17 06:48 Dose: 650 mg Albuterol/Ipratropium (Duoneb 3 Mg/0.5 Mg (3 Ml) Ud) 3 ml IH Q2H PRN PRN Reason: Shortness of Breath Atorvastatin Calcium (Lipitor) 20 mg PO DIN COUNTS INCLUDE 234 BEDS AT [facility] Last Admin: 06/07/17 17:22 Dose: 20 mg Benzocaine/Menthol (Cepacol Sore Throat) 1 aneudy MT Q2H PRN PRN Reason: Sore Throat Last Admin: 18 17:54 Dose: 1 aneudy Benzonatate (Tessalon Perles) 100 mg PO TID COUNTS INCLUDE 234 BEDS AT [facility] Last Admin: 06/08/17 09:27 Dose: 100 mg Folic Acid (Folic Acid) 1 mg PO DAILY COUNTS INCLUDE 234 BEDS AT [facility] Last Admin: 06/08/17 09:27 Dose: 1 mg Guaifenesin/Dextromethorphan (Robitussin Dm) 5 ml PO Q4H PRN PRN Reason: Cough Last Admin: 06/08/17 00:07 Dose: 5 ml Heparin Sodium (Porcine) (Heparin) 5,000 units SC Q12 [facility]O PRN Reason: Protocol Last Admin: 06/08/17 09:29 Dose: 5,000 units Sodium Chloride (Sodium Chloride 0.9%) 1,000 mls @ 100 mls/hr IV .Q10H COUNTS INCLUDE 234 BEDS AT [facility] Last Admin: 06/08/17 05:31 Dose: 100 mls/hr Piperacillin Sod/Tazobactam Sod (Zosyn 3.375 In Ns 100ml) 100 mls @ 200 mls/hr IVPB Q6 [facility] PRN Reason: Protocol Stop: 07/04/17 12:01 Last Admin: 06/08/17 05:29 Dose: 200 mls/hr Vancomycin HCl (Vancomycin 1gm) 1 gm in 250 mls @ 167 mls/hr IVPB Q12H [facility] PRN Reason: Protocol Stop: 07/04/17 19:46 Last Admin: 06/08/17 09:31 Dose: 167 mls/hr Ibuprofen (Motrin Tab) 400 mg PO Q6H PRN PRN Reason: Pain, moderate (4-7) Methylprednisolone (Solu-Medrol) 20 mg IVP Q12 COUNTS INCLUDE 234 BEDS AT [facility] Last Admin: 06/08/17 09:25 Dose: 20 mg Multivitamins/Minerals (Therapeutic-M Tab) 1 tab PO 0800 COUNTS INCLUDE 234 BEDS AT [facility] Last Admin: 06/08/17 09:27 Dose: 1 tab Nicotine (Nicoderm Cq) 1 patch TD DAILY COUNTS INCLUDE 234 BEDS AT [facility] Last Admin: 06/08/17 09:28 Dose: 1 patch Pantoprazole Sodium (Protonix Ec Tab) 40 mg PO 0600 COUNTS INCLUDE 234 BEDS AT [facility] Last Admin: 06/08/17 05:34 Dose: 40 mg Thiamine HCl (Vitamin B1 Tab) 100 mg PO DAILY COUNTS INCLUDE 234 BEDS AT [facility] Last Admin: 06/08/17 09:27 Dose: 100 mg - Labs Labs: 06/08/17 07:00 06/08/17 07:00 APTT 30.8 Seconds (25.1-36.5) 06/06/17 08:00 Attending/Attestation - Attestation I have personally seen and examined this patient.: Yes I have fully participated in the care of the patient.: Yes I have reviewed all pertinent clinical information, including history, physical exam and plan: Yes Notes (Text): 06/08/17 17:25 57 year old male with past medical history of alcohol abuse and dyslipidemia and active smoker who presented with complaint of cough and shortness of breath. In ER he was found to have fever of 102 with tachycardia and leukocytosis. CXR/ CT chest showed multiple cavitary and necrotics masses in lungs. ID and pulmonary are following. Continue with iv antibiotics and iv steroids. Fever has resolved and leukocytosis has improved. Consider to d/c isolation if AFB x 3 and cultures are negative. He was counselled on smoking cessation and alcohol abstinence. Continue with statin for dyslipidemia. Darlyn Milner MD Hospitalist.
--- NOTE | 2017-06-08 21:47 | PN ---
DATE: 06/08/2017 PULMONARY PROGRESS NOTE REFERRING PHYSICIAN: Dr. Milner. SUBJECTIVE: He is lying in the bed, head at 45 degrees. Feels better, still have cough, sputum production. No nausea, no diarrhea, no leg pain or leg swelling. OBJECTIVE GENERAL: In no acute distress. VITAL SIGNS: Temperature is 98, heart rate 83, respiratory rate is 20, blood pressure 129/79, pulse ox of 93% on room air. HEENT: Moist mucous membranes. Crowded airway. NECK: Supple. No JVD. LUNGS: Have scattered rhonchi, diffuse expiratory wheezing. HEART: S1 and S2. ABDOMEN: Soft, nontender. No organomegaly. EXTREMITIES: No edema. NEUROLOGIC: Awake, alert. Follows simple command. MEDICATIONS: He is on Cepacol lozenges q. 2 hour p.r.n., DuoNeb q. 2 hour p.r.n., folic acid 1 mg daily, heparin 5000 units subcu q.12 hour, Lipitor 20 mg daily, Motrin 400 mg q. 6 hour p.r.n., Nicoderm patch daily, Protonix 40 mg daily, Robitussin DM 5 mL q. 4 hour p.r.n., IV fluid half-normal saline 100 mL per hour, Solu-Medrol 20 mg q. 12 hour, Tessalon Perles 100 mg 3 times a day, multivitamins daily, Tylenol p.r.n., vancomycin 1 g IV q.12 hour, vitamin B 100 mg daily, Zosyn 3.375 g q. 6 hour. LABORATORY DATA: Shows hemoglobin 9.3, hematocrit 28.6, WBC 10.3, platelet count is 474. Sodium 138, potassium 3.7, chloride 107, bicarbonate 24, BUN 8, creatinine 0.6, glucose 152, calcium is 8.5. AST 83, ALT 43, alk phos is 85. Albumin is 2.5. Quantitative TB is negative. HIV is negative. Mycobacterium smear x3 is negative. IMPRESSION AND PLAN: Aspiration pneumonia with lung abscess, probably secondary to alcohol intoxication chronic obstructive lung disease, hypertension, hyperlipidemia, quantitative TB serology is negative and also sputum smear been negative. Will suggest discontinuing the isolation. Continue antibiotics. Continue IV and inhaled bronchodilator, gastric prophylaxis, DVT prophylaxis. The patient is urged to stop smoking and also urged to stop drinking. Thank you and we will follow with you. Joby Sheppard MD
--- NOTE | 2017-06-09 01:50 | PN ---
DATE: 06/08/2017 SUBJECTIVE: Patient was seen earlier this morning. No fevers, no chills. No nausea, no vomiting. PHYSICAL EXAMINATION VITAL SIGNS: Temperature is 98, blood pressure is 126/70, respiratory rate of 18, heart rate of 101. HEENT: Unremarkable. NECK: Supple. LUNGS: Decreased breath sounds. HEART: Normal S1 and S2. ABDOMEN: Soft, nontender. LABORATORY DATA: Reveals white count of 10,000 and hemoglobin is 9. BUN of 8, creatinine of 0.6. Toxicology is noted. Serology is noted and HIV is negative. QuantiFERON is negative. Microbiology revealed the patient's AFB smear is negative. No acid-fast in the second set. MRSA screen is negative and culture is normal oral delores. Gram-negative kyra was seen on the Gram stain. A third mycobacteria is also negative. The blood culture are negative. Patient's procalcitonin is elevated at 0.75. Patient is on Solu-Medrol, vancomycin, and Zosyn. ASSESSMENT AND PLAN: This is a 57-year-old male who was born in [facility], with alcohol use, hypertension, hyperlipidemia, admitted with severe sepsis, for a right lower lobe cavitary lesion, probable Gram-negative polymicrobial collection rule out underlying malignancy. I doubt tuberculosis, currently on vancomycin and Zosyn. We will discuss with Dr. Sheppard regarding the bronchoscopy and tissue diagnosis. May consider Dr. Sandeep Mahajan to review the CAT scan to see if they can get the CAT scan tissue diagnosis. May discontinue the isolation. We will continue the antibiotic therapy at this time. We will discuss with Dr. Milner. Angel Talbert MD
[2017-06-09] MEDS: Piperacillin/Tazobact 3.375 gm 100 ML IVPB SCH ×3 (07:06→19:48)
[2017-06-09] MEDS: Pantoprazole 40 mg EC Tab PO SCH (07:07)
[2017-06-09] MEDS: Multivitamin With Minerals Tab PO SCH (08:00)
[2017-06-09 08:30] LABS: BASO # 0.01 K/mm3 (0.0-2.0); BASO % 0.1 % (0.0-3.0); GRAN # 8.89 (1.4-6.5); GRAN % 85.9 % (50.0-68.0); HEMOGLOBIN 9.8 g/dL (14.0-18.0); LYMPH # 0.9 (1.2-3.4); LYMPH % 8.7 % (22.0-35.0); MEAN CELL VOLUME 92.4 fl (80.0-105.0); MEAN CORPUSCULAR HEMOGLOBIN 29.8 pg (25.0-35.0); MEAN CORPUSCULAR HGB CONC 32.2 g/dl (31.0-37.0); MEAN PLATELET VOLUME 8.1 fl (7.0-11.0); MONO # 0.6 (0.1-0.6); MONO % 5.3 % (1.0-6.0); RBC 3.29 10^6/uL (3.5-6.1); RED CELL DISTRIBUTION WIDTH 14.6 % (11.5-14.5); WHITE BLOOD COUNT 10.4 10^3/ul (4.5-11.0)
[2017-06-09 08:47] LABS: ALB/GLOB RATIO 0.8 (1.1-1.8); ALBUMIN 2.7 g/dL (3.0-4.8); ALT/SGPT 115 U/L (7-56); AST/SGOT 164 U/L (17-59); BLOOD UREA NITROGEN 7 mg/dL (7-21); CALCIUM 8.8 mg/dL (8.4-10.5); GFR AFRICAN-AMERICAN > 60; GFR NON-AFRICAN AMERICAN > 60
[2017-06-09] MEDS: Sodium Chloride 0.9% 1,000 ML IV SCH (09:22)
[2017-06-09] MEDS: Vancomycin 1gm in NS 250ml 1 GM/250 ML BAG IVPB SCH ×2 (09:24→21:27)
[2017-06-09] MEDS: MethylPREDNISolone 40 mg Vial IVP SCH ×2 (09:25→21:26)
--- NOTE | 2017-06-09 14:37 | CP.PCM.PN ---
<Brain Frederick - Last Filed: 06/09/17 17:32> Subjective - Date & Time of Evaluation Date of Evaluation: 06/09/17 Time of Evaluation: 14:30 - Subjective Subjective: Medicine Progress Note: Patient seen and assessed at bedside. No acute events noted overnight by patient or nursing staff. Patient offers no complaints at this time including fever, chills, headache, chest pain, palpitations, SOB, abdominal pain, N/V/D/C , numbness/tingling/weakness of any extremity or any skin changes. Objective - Vital Signs/Intake and Output Vital Signs (last 24 hours): Temp Pulse Resp BP Pulse Ox 98.3 F 99 H 22 152/91 H 94 L 06/09/17 08:00 06/09/17 08:00 06/09/17 08:00 06/09/17 08:00 06/09/17 08:00 - Medications Medications: Current Medications Albuterol/Ipratropium (Duoneb 3 Mg/0.5 Mg (3 Ml) Ud) 3 ml IH Q2H PRN PRN Reason: Shortness of Breath Atorvastatin Calcium (Lipitor) 20 mg PO DIN [facility] Last Admin: 06/08/17 18:05 Dose: 20 mg Benzocaine/Menthol (Cepacol Sore Throat) 1 aneudy MT Q2H PRN PRN Reason: Sore Throat Last Admin: 06/05/17 17:54 Dose: 1 aneudy Benzonatate (Tessalon Perles) 100 mg PO TID [facility] Last Admin: 06/09/17 09:26 Dose: 100 mg Folic Acid (Folic Acid) 1 mg PO DAILY [facility] Last Admin: 06/09/17 09:25 Dose: 1 mg Guaifenesin/Dextromethorphan (Robitussin Dm) 5 ml PO Q4H PRN PRN Reason: Cough Last Admin: 06/08/17 00:07 Dose: 5 ml Heparin Sodium (Porcine) (Heparin) 5,000 units SC Q12 [facility] PRN Reason: Protocol Last Admin: 06/09/17 09:26 Dose: Not Given Sodium Chloride (Sodium Chloride 0.9%) 1,000 mls @ 100 mls/hr IV .Q10H [facility] Last Admin: 06/09/17 09:22 Dose: 100 mls/hr Piperacillin Sod/Tazobactam Sod (Zosyn 3.375 In Ns 100ml) 100 mls @ 200 mls/hr IVPB Q6 [facility] PRN Reason: Protocol Stop: 07/04/17 12:01 Last Admin: 06/09/17 07:06 Dose: 200 mls/hr Vancomycin HCl (Vancomycin 1gm) 1 gm in 250 mls @ 167 mls/hr IVPB Q12H [facility] PRN Reason: Protocol Stop: 07/04/17 19:46 Last Admin: 06/09/17 09:24 Dose: 167 mls/hr Ibuprofen (Motrin Tab) 400 mg PO Q6H PRN PRN Reason: Pain, moderate (4-7) Methylprednisolone (Solu-Medrol) 20 mg IVP Q12 [facility] Last Admin: 06/09/17 09:25 Dose: 20 mg Multivitamins/Minerals (Therapeutic-M Tab) 1 tab PO 0800 [facility] Last Admin: 06/08/17 09:27 Dose: 1 tab Nicotine (Nicoderm Cq) 1 patch TD DAILY [facility] Last Admin: 06/09/17 09:25 Dose: 1 patch Pantoprazole Sodium (Protonix Ec Tab) 40 mg PO 0600 [facility] Last Admin: 06/09/17 07:07 Dose: 40 mg Thiamine HCl (Vitamin B1 Tab) 100 mg PO DAILY [facility] Last Admin: 06/09/17 09:25 Dose: 100 mg - Labs Labs: 06/09/17 08:00 06/09/17 08:00 APTT 30.8 Seconds (25.1-36.5) 06/06/17 08:00 - Constitutional Appears: Non-toxic, No Acute Distress - Head Exam Head Exam: ATRAUMATIC, NORMOCEPHALIC - Eye Exam Eye Exam: EOMI, Normal appearance, PERRL - ENT Exam ENT Exam: Mucous Membranes Moist - Neck Exam Neck Exam: Full ROM. absent: Lymphadenopathy - Respiratory Exam Respiratory Exam: Wheezes (Trace; end expiratory; scattered), NORMAL BREATHING PATTERN. absent: Accessory Muscle Use, Chest Wall Tenderness, Decreased Breath Sounds, Clear to Ausculation Bilateral, Prolonged Expiratory Phase, Rales, Rhonchi, Respiratory Distress, Stridor - Cardiovascular Exam Cardiovascular Exam: REGULAR RHYTHM, RRR, +S1, +S2. absent: Tachycardia - GI/Abdominal Exam GI & Abdominal Exam: Soft, Normal Bowel Sounds. absent: Distended, Firm, Guarding, Rigid, Tenderness, Organomegaly, Rebound - Extremities Exam Extremities Exam: Full ROM, Normal Capillary Refill. absent: Calf Tenderness, Joint Swelling, Pedal Edema, Tenderness - Neurological Exam Neurological Exam: Alert, Awake, CN II-XII Intact, Oriented x3 - Psychiatric Exam Psychiatric exam: Normal Affect, Normal Mood - Skin Skin Exam: Dry, Intact, Normal Color, Warm Assessment and Plan - Assessment and Plan (Free Text) Assessment: 57 year old male with a past medical history significant for alcohol abuse, HTN and HLD who presents with dry cough with associated chills and throat irritation for a duration of four to five days. Patient was found to be febrile and with tachycardia and leukocytosis in the ED. A chest x-ray and chest CT were done and showed multiple cavitary and necrotic masses the right lung and left upper lobe infiltrates. Patient started on Vancomycin and Zosyn per ID. Patient now with three sputum cultures preliminarily negative for AFB. Currently determining if patient is a candidate for tissue diagnosis with either IR or Pulmonology. Plan: 1. Cavitary Lesions of Right Lower Lobe -Chest X-Ray showed large superior segment right lower lobe cavitary lesion -Chest CT showed multiple cavitary and necrotic masses the right lung and subsegmental infiltrates in the left upper lobe -Previous Chest X-Ray taken on 05/25/16 showed hyperventilation and chronic changes consistent with emphysema and no masses or cavitary lesions -Three sputum cultures preliminarily negative for AFB and negative quantiferon -Currently determining if patient is appropriate candidate for tissue diagnosis with IR and Pulmonology -Continue with IV Vancomycin and Zosyn -Continue IV Solu-Medrol 20mg IVP Q12 -Continue Duonebs Q2 PRN and Oxygen Therapy via NC -Continue Tessalon Perles PRN, Robitussin DM PRN and Cepacol PRN -Holding PRN Tylenol in setting of transaminitis -Ibuprofen 400mg PO Q6H PRN for pain control -Airborne and Contact precautions discontinued -Pulmonology and ID consulted, all recommendations appreciated 2. Transaminitis -Found to have elevated LFT's on CMP -Hepatitis panel pending -Holding Lipitor and PRN Tylenol -Continue to trend with daily CMP 3. History of Alcohol Abuse -Alcohol level <10 on admission -Reports quitting two months ago -Continue Folic acid, Thiamine and MV supplementation 4. History of Tobacco Abuse -Continue Nicotine 21mg/day TD 5. History of HLD -Holding Lipitor in setting of transaminitis GI Prophylaxis: Protonix DVT Prophylaxis: Heparin Patient seen and case discussed with attending, Dr. Milner. <Darlyn Milner - Last Filed: 06/10/17 07:37> Objective - Vital Signs/Intake and Output Vital Signs (last 24 hours): Temp Pulse Resp BP Pulse Ox 98.3 F 111 H 20 177/108 H 93 L 06/09/17 18:34 06/09/17 18:34 06/09/17 18:34 06/09/17 18:34 06/09/17 18:34 Intake and Output: 06/10/17 06/10/17 06:59 18:59 Intake Total 1140 Balance 1140 - Medications Medications: Current Medications Albuterol/Ipratropium (Duoneb 3 Mg/0.5 Mg (3 Ml) Ud) 3 ml IH Q2H PRN PRN Reason: Shortness of Breath Atorvastatin Calcium (Lipitor) 20 mg PO DIN [facility] Last Admin: 06/08/17 18:05 Dose: 20 mg Benzocaine/Menthol (Cepacol Sore Throat) 1 aneudy MT Q2H PRN PRN Reason: Sore Throat Last Admin: 06/05/17 17:54 Dose: 1 aneudy Benzonatate (Tessalon Perles) 100 mg PO TID [facility] Last Admin: 06/09/17 18:26 Dose: 100 mg Folic Acid (Folic Acid) 1 mg PO DAILY [facility] Last Admin: 06/09/17 09:25 Dose: 1 mg Guaifenesin/Dextromethorphan (Robitussin Dm) 5 ml PO Q4H PRN PRN Reason: Cough Last Admin: 06/08/17 00:07 Dose: 5 ml Heparin Sodium (Porcine) (Heparin) 5,000 units SC Q12 [facility] PRN Reason: Protocol Last Admin: 06/09/17 21:27 Dose: Not Given Piperacillin Sod/Tazobactam Sod (Zosyn 3.375 In Ns 100ml) 100 mls @ 200 mls/hr IVPB Q6 [facility] PRN Reason: Protocol Stop: 07/04/17 12:01 Last Admin: 06/10/17 06:02 Dose: 200 mls/hr Vancomycin HCl (Vancomycin 1gm) 1 gm in 250 mls @ 167 mls/hr IVPB Q12H [facility] PRN Reason: Protocol Stop: 07/04/17 19:46 Last Admin: 06/09/17 21:27 Dose: 167 mls/hr Ibuprofen (Motrin Tab) 400 mg PO Q6H PRN PRN Reason: Pain, moderate (4-7) Methylprednisolone (Solu-Medrol) 20 mg IVP Q12 [facility] Last Admin: 06/09/17 21:26 Dose: 20 mg Multivitamins/Minerals (Therapeutic-M Tab) 1 tab PO 0800 [facility] Last Admin: 06/09/17 08:00 Dose: 1 tab Nicotine (Nicoderm Cq) 1 patch TD DAILY [facility] Last Admin: 06/09/17 09:25 Dose: 1 patch Pantoprazole Sodium (Protonix Ec Tab) 40 mg PO 0600 [facility] Last Admin: 06/09/17 07:07 Dose: 40 mg Thiamine HCl (Vitamin B1 Tab) 100 mg PO DAILY [facility] Last Admin: 06/09/17 09:25 Dose: 100 mg - Labs Labs: 06/09/17 08:00 06/09/17 08:00 APTT 30.8 Seconds (25.1-36.5) 06/06/17 08:00 Attending/Attestation - Attestation I have personally seen and examined this patient.: Yes I have fully participated in the care of the patient.: Yes I have reviewed all pertinent clinical information, including history, physical exam and plan: Yes Notes (Text): 06/09/17 57 year old male with past medical history of alcohol abuse and dyslipidemia and active smoker who presented with complaint of cough and shortness of breath. In ER he was found to have fever of 102 with tachycardia and leukocytosis. CXR/ CT chest showed multiple cavitary and necrotics masses in lungs. ID and pulmonary are following. Continue with iv antibiotics and iv steroids. Fever has resolved and leukocytosis has improved. AFB x 3 were negative and isolation is discontinued. Case was discussed with ID ; will request Dr. Mahajan to review CT scan tomorrow. He was counselled on smoking cessation and alcohol abstinence. LFTs were elevated today; will hold statin and check hepatitis panel. Darlyn Milner MD Hospitalist.
--- NOTE | 2017-06-09 17:41 | PN ---
DATE: 06/09/2017 SUBJECTIVE: The patient is seen earlier today in 578, bed 2. No fevers and no chills. He is still coughing. PHYSICAL EXAMINATION: VITAL SIGNS: Temperature is 98. The patient initially came in with a temperature of 102, which appears to be responded. Heart rate of 101, 93% saturation, respiratory rate of 22, blood pressure is 152/90. HEENT: Unremarkable. NECK: Supple. LUNGS: Have decreased breath sounds. HEART: Normal S1, S2. ABDOMEN: Soft, nontender. LABORATORY DATA: Reveals the white count is down to 10,400 from 18,000, hemoglobin of 9, platelets of 519, and the sed rate is 121. Coagulation is noted. Chemistries reveals a BUN of 7, creatinine of 0.6. Triglycerides are 208. The patient had a procalcitonin which is elevated at 0.75. Toxicology is noted. Serology HIV is negative, influenza is negative. Gold QuantiFERON is negative. Microbiology reveals AFBs are negative. The blood cultures are no growth. Three negative AFB smears. Sputum culture shows no growth, although the Gram stain showed a gram-negative kyra on the Gram stain, but no cultures. The MRSA naris is not detected. Currently, the patient is on vancomycin and Zosyn and Dr. Milner's note is reviewed. ASSESSMENT AND PLAN: This is a 57-year-old male seen early this morning, born in [facility], he has alcohol use and tobacco use, admitted with severe sepsis, right lower lobe cavitary lesion, most likely gram-negative kyra, polymicrobial necrotic lesion and I doubt tuberculosis, must rule out underlying malignancy primary doctor to request Dr. Sandeep Mahajan to review the CAT scan and consider a CAT scan-directed aspiration. Pending cultures of that, we will need prolonged antibiotics, repeat imaging, and we will discuss with Pulmonary with Dr. Sheppard regarding possible bronchoscopy and we will follow with you if there is no clinical response. Angel Talbert MD
--- NOTE | 2017-06-09 22:31 | PN ---
DATE: 06/09/2017 PULMONARY PROGRESS NOTE REFERRING PHYSICIAN: Dr. Milner. SUBJECTIVE: He is lying in the bed, head at 45 degrees. Feels better, still has cough and sputum production. No nausea, vomiting, diarrhea, leg pain, or leg swelling. OBJECTIVE: GENERAL: In no acute distress. VITAL SIGNS: Temp is 98, heart rate is 99, respiratory rate is 22, blood pressure 152/91, pulse ox 94% on room air. HEENT: Moist mucous membranes. Crowded airway. NECK: Supple. No JVD. LUNGS: Scattered rhonchi and wheezing, which has improved airflow though. HEART: S1 and S2. ABDOMEN: Soft and nontender. No organomegaly. EXTREMITIES: There is no edema. NEUROLOGIC: Awake, alert. Follows simple commands. MEDICATIONS: He is on Cepacol lozenges q. 12 hour p.r.n., DuoNeb q. 2 hour p.r.n., folic acid 1 mg daily, heparin 5000 units subcu q. 12 hour, Lipitor 20 mg daily, ibuprofen 400 mg q. 6 hour p.r.n., Nicoderm patch daily, Protonix 40 mg daily, Robitussin DM 5 mL q. 4 hour p.r.n., IV fluid normal saline 100 mL per hour, Solu-Medrol 20 mg q. 12 hour, Tessalon Perles 100 mg 3 times a day, multivitamins daily, vancomycin 1 g IV q. 12 hour, vitamin B 100 mg daily, Zosyn 3.375 g IV q. 6 hour. LABORATORY DATA: Shows hemoglobin 9.8, hematocrit 30.4, WBC 10.4, platelet count is 519. Sodium 137, potassium 3.6, chloride 102, bicarbonate 26, BUN 7, creatinine 0.6, glucose is 121, calcium is 8.8, AST 164, ALT 115, alk phos is 95, albumin is 2.7. Microbiology: Three set of AFB smear have been negative. Sputum culture has a normal delores. IMPRESSION AND PLAN: Aspiration pneumonia, lung abscess, history of alcohol abuse, chronic obstructive lung disease, hypertension, and hyperlipidemia. Case discussed with the nursing staff. Recommend to discontinue isolation. Antibiotics as per Infectious Disease. Discontinue intravenous fluid. Gastric and deep venous thrombosis prophylaxis. Out of bed to chair. Thank you and we will follow with you. Joby Sheppard MD [facility] # [id number]
[2017-06-10] MEDS: Piperacillin/Tazobact 3.375 gm 100 ML IVPB SCH ×5 (00:48→23:33)
[2017-06-10 07:59] LABS: BASO # 0.01 K/mm3 (0.0-2.0); BASO % 0.1 % (0.0-3.0); GRAN # 10.19 (1.4-6.5); GRAN % 84.1 % (50.0-68.0); HEMOGLOBIN 10.8 g/dL (14.0-18.0); LYMPH # 1.3 (1.2-3.4); MEAN CELL VOLUME 91.7 fl (80.0-105.0); MEAN CORPUSCULAR HEMOGLOBIN 29.8 pg (25.0-35.0); MEAN CORPUSCULAR HGB CONC 32.4 g/dl (31.0-37.0); MEAN PLATELET VOLUME 8.3 fl (7.0-11.0); MONO # 0.6 (0.1-0.6); MONO % 4.8 % (1.0-6.0); RBC 3.63 10^6/uL (3.5-6.1); RED CELL DISTRIBUTION WIDTH 14.9 % (11.5-14.5); WHITE BLOOD COUNT 12.1 10^3/ul (4.5-11.0)
[2017-06-10 08:28] LABS: HEPATITIS B SURFACE AG Negative (NEGATIVE)
[2017-06-10] MEDS: Pantoprazole 40 mg EC Tab PO SCH ×2 (08:33→10:12)
[2017-06-10 08:34] LABS: HEPATITIS A IGM NEGATIVE (NEGATIVE); HEPATITIS B CORE AB NEGATIVE (NEGATIVE)
[2017-06-10 08:35] LABS: ALB/GLOB RATIO 0.8 (1.1-1.8); ALBUMIN 2.8 g/dL (3.0-4.8); ALT/SGPT 152 U/L (7-56); AST/SGOT 183 U/L (17-59); BLOOD UREA NITROGEN 9 mg/dL (7-21); CALCIUM 8.2 mg/dL (8.4-10.5); GFR AFRICAN-AMERICAN > 60; GFR NON-AFRICAN AMERICAN > 60
[2017-06-10 08:45] LABS: HEPATITIS C ANTIBODY NEGATIVE (NEGATIVE)
[2017-06-10] MEDS: Multivitamin With Minerals Tab PO SCH (10:08)
[2017-06-10] MEDS: MethylPREDNISolone 40 mg Vial IVP SCH (10:12)
[2017-06-10] MEDS: Vancomycin 1gm in NS 250ml 1 GM/250 ML BAG IVPB SCH ×2 (10:15→20:42)
--- NOTE | 2017-06-10 13:18 | CP.PCM.PN ---
<Kaci Pappas - Last Filed: 06/10/17 13:10> Subjective - Date & Time of Evaluation Date of Evaluation: 06/10/17 Time of Evaluation: 13:10 - Subjective Subjective: Kaci Pappas, PGY1, Medicine Progress Note for Dr Milner: Patient seen and assessed at bedside. No acute events noted overnight. Pt reports a dry cough, improved since admission. Denies fever, chills, nausea, vomiting, night sweats, abdominal pain, wheezing. Objective - Vital Signs/Intake and Output Vital Signs (last 24 hours): Temp Pulse Resp BP Pulse Ox 99.2 F 121 H 20 139/97 H 95 06/10/17 07:00 06/10/17 07:00 06/10/17 07:00 06/10/17 07:00 06/10/17 07:00 Intake and Output: 06/10/17 06/10/17 06:59 18:59 Intake Total 1140 Balance 1140 - Medications Medications: Current Medications Albuterol/Ipratropium (Duoneb 3 Mg/0.5 Mg (3 Ml) Ud) 3 ml IH Q2H PRN PRN Reason: Shortness of Breath Atorvastatin Calcium (Lipitor) 20 mg PO DIN ON LICENSE OF [facility] Last Admin: 06/08/17 18:05 Dose: 20 mg Benzocaine/Menthol (Cepacol Sore Throat) 1 aneudy MT Q2H PRN PRN Reason: Sore Throat Last Admin: 06/05/17 17:54 Dose: 1 aneudy Benzonatate (Tessalon Perles) 100 mg PO TID ON LICENSE OF [facility] Last Admin: 06/10/17 10:08 Dose: 100 mg Folic Acid (Folic Acid) 1 mg PO DAILY ON LICENSE OF [facility] Last Admin: 06/10/17 10:12 Dose: 1 mg Guaifenesin/Dextromethorphan (Robitussin Dm) 5 ml PO Q4H PRN PRN Reason: Cough Last Admin: 06/08/17 00:07 Dose: 5 ml Heparin Sodium (Porcine) (Heparin) 5,000 units SC Q12 [facility] PRN Reason: Protocol Last Admin: 06/10/17 10:09 Dose: Not Given Piperacillin Sod/Tazobactam Sod (Zosyn 3.375 In Ns 100ml) 100 mls @ 200 mls/hr IVPB Q6 [facility] PRN Reason: Protocol Stop: 07/04/17 12:01 Last Admin: 06/10/17 12:43 Dose: 200 mls/hr Vancomycin HCl (Vancomycin 1gm) 1 gm in 250 mls @ 167 mls/hr IVPB Q12H [facility] PRN Reason: Protocol Stop: 07/04/17 19:46 Last Admin: 06/10/17 10:15 Dose: 167 mls/hr Ibuprofen (Motrin Tab) 400 mg PO Q6H PRN PRN Reason: Pain, moderate (4-7) Methylprednisolone (Solu-Medrol) 20 mg IVP Q12 ON LICENSE OF [facility] Last Admin: 06/10/17 10:12 Dose: 20 mg Multivitamins/Minerals (Therapeutic-M Tab) 1 tab PO 0800 ON LICENSE OF [facility] Last Admin: 06/10/17 10:08 Dose: 1 tab Nicotine (Nicoderm Cq) 1 patch TD DAILY ON LICENSE OF [facility] Last Admin: 06/10/17 10:14 Dose: 1 patch Pantoprazole Sodium (Protonix Ec Tab) 40 mg PO 0600 ON LICENSE OF [facility] Last Admin: 06/10/17 10:12 Dose: 40 mg Thiamine HCl (Vitamin B1 Tab) 100 mg PO DAILY ON LICENSE OF [facility] Last Admin: 06/10/17 10:08 Dose: 100 mg - Labs Labs: 06/10/17 07:30 06/10/17 07:30 APTT 30.8 Seconds (25.1-36.5) 06/06/17 08:00 - Additional Findings Additional findings: - Constitutional Appears: Non-toxic, No Acute Distress - Head Exam Head Exam: ATRAUMATIC, NORMOCEPHALIC - Eye Exam Eye Exam: EOMI, Normal appearance, PERRL - ENT Exam ENT Exam: Mucous Membranes Moist - Neck Exam Neck Exam: Full ROM. absent: Lymphadenopathy - Respiratory Exam Respiratory Exam: Decreased breath sounds on RLL. NORMAL BREATHING PATTERN. absent: Accessory Muscle Use, Chest Wall Tenderness, Prolonged Expiratory Phase , Rales, Rhonchi, Respiratory Distress, Stridor - Cardiovascular Exam Cardiovascular Exam: REGULAR RHYTHM, RRR, +S1, +S2. absent: Tachycardia - GI/Abdominal Exam GI & Abdominal Exam: Soft, Normal Bowel Sounds. absent: Distended, Firm, Guarding, Rigid, Tenderness, Organomegaly, Rebound - Extremities Exam Extremities Exam: Full ROM, Normal Capillary Refill. absent: Calf Tenderness, Joint Swelling, Pedal Edema, Tenderness - Neurological Exam Neurological Exam: Alert, Awake, CN II-XII Intact, Oriented x3 - Psychiatric Exam Psychiatric exam: Normal Affect, Normal Mood - Skin Skin Exam: Dry, Intact, Normal Color, Warm Assessment and Plan - Assessment and Plan (Free Text) Assessment: 57 year old male with a past medical history significant for alcohol abuse, HTN and HLD who presents with dry cough with associated chills and throat irritation for a duration of four to five days. Patient was found to be febrile and with tachycardia and leukocytosis in the ED. A chest x-ray and chest CT were done and showed multiple cavitary and necrotic masses the right lung and left upper lobe infiltrates. Patient started on Vancomycin and Zosyn per ID. Patient now with three sputum cultures preliminarily negative for AFB. Currently determining if patient is a candidate for tissue diagnosis with either IR or Pulmonology: 1. Cavitary Lesions of Right Lower Lobe -Chest X-Ray showed large superior segment right lower lobe cavitary lesion -Chest CT showed multiple cavitary and necrotic masses the right lung and subsegmental infiltrates in the left upper lobe -Previous Chest X-Ray taken on 05/25/16 showed hyperventilation and chronic changes consistent with emphysema and no masses or cavitary lesions -Three sputum cultures preliminarily negative for AFB and negative quantiferon -Currently determining if patient is appropriate candidate for tissue diagnosis with IR and Pulmonology -Continue with IV Vancomycin and Zosyn -Continue IV Solu-Medrol 20mg IVP Q12 -Continue Duonebs Q2 PRN and Oxygen Therapy via NC -Continue Tessalon Perles PRN, Robitussin DM PRN and Cepacol PRN -Holding PRN Tylenol in setting of transaminitis -Ibuprofen 400mg PO Q6H PRN for pain control -Airborne and Contact precautions discontinued -Pulmonology and ID consulted, all recommendations appreciated 2. Transaminitis -Found to have elevated LFT's on CMP -Hepatitis panel neg -Ordered RUQ US. F/u results. -Holding Lipitor and PRN Tylenol -Continue to trend with daily CMP 3. History of Alcohol Abuse -Alcohol level <10 on admission -Reports quitting two months ago -Continue Folic acid, Thiamine and MV supplementation 4. History of Tobacco Abuse -Continue Nicotine 21mg/day TD 5. History of HLD -LDL 109 this admission. -Holding Lipitor in setting of transaminitis GI Prophylaxis: Protonix DVT Prophylaxis: Heparin Patient seen and case discussed with attending, Dr. Milner. <Darlyn Milner - Last Filed: 06/10/17 13:35> Objective - Vital Signs/Intake and Output Vital Signs (last 24 hours): Temp Pulse Resp BP Pulse Ox 99.2 F 121 H 20 139/97 H 95 06/10/17 07:00 06/10/17 07:00 06/10/17 07:00 06/10/17 07:00 06/10/17 07:00 Intake and Output: 06/10/17 06/10/17 06:59 18:59 Intake Total 1140 Balance 1140 - Medications Medications: Current Medications Albuterol/Ipratropium (Duoneb 3 Mg/0.5 Mg (3 Ml) Ud) 3 ml IH Q2H PRN PRN Reason: Shortness of Breath Atorvastatin Calcium (Lipitor) 20 mg PO DIN ON LICENSE OF [facility] Last Admin: 06/08/17 18:05 Dose: 20 mg Benzocaine/Menthol (Cepacol Sore Throat) 1 aneudy MT Q2H PRN PRN Reason: Sore Throat Last Admin: 06/05/17 17:54 Dose: 1 aneudy Benzonatate (Tessalon Perles) 100 mg PO TID ON LICENSE OF [facility] Last Admin: 06/10/17 10:08 Dose: 100 mg Folic Acid (Folic Acid) 1 mg PO DAILY ON LICENSE OF [facility] Last Admin: 06/10/17 10:12 Dose: 1 mg Guaifenesin/Dextromethorphan (Robitussin Dm) 5 ml PO Q4H PRN PRN Reason: Cough Last Admin: 06/08/17 00:07 Dose: 5 ml Heparin Sodium (Porcine) (Heparin) 5,000 units SC Q12 [facility] PRN Reason: Protocol Last Admin: 06/10/17 10:09 Dose: Not Given Piperacillin Sod/Tazobactam Sod (Zosyn 3.375 In Ns 100ml) 100 mls @ 200 mls/hr IVPB Q6 [facility] PRN Reason: Protocol Stop: 07/04/17 12:01 Last Admin: 06/10/17 12:43 Dose: 200 mls/hr Vancomycin HCl (Vancomycin 1gm) 1 gm in 250 mls @ 167 mls/hr IVPB Q12H [facility] PRN Reason: Protocol Stop: 07/04/17 19:46 Last Admin: 06/10/17 10:15 Dose: 167 mls/hr Ibuprofen (Motrin Tab) 400 mg PO Q6H PRN PRN Reason: Pain, moderate (4-7) Methylprednisolone (Solu-Medrol) 20 mg IVP Q12 ON LICENSE OF [facility] Last Admin: 06/10/17 10:12 Dose: 20 mg Multivitamins/Minerals (Therapeutic-M Tab) 1 tab PO 0800 ON LICENSE OF [facility] Last Admin: 06/10/17 10:08 Dose: 1 tab Nicotine (Nicoderm Cq) 1 patch TD DAILY ON LICENSE OF [facility] Last Admin: 06/10/17 10:14 Dose: 1 patch Pantoprazole Sodium (Protonix Ec Tab) 40 mg PO 0600 ON LICENSE OF [facility] Last Admin: 06/10/17 10:12 Dose: 40 mg Thiamine HCl (Vitamin B1 Tab) 100 mg PO DAILY ON LICENSE OF [facility] Last Admin: 06/10/17 10:08 Dose: 100 mg - Labs Labs: 06/10/17 07:30 06/10/17 07:30 APTT 30.8 Seconds (25.1-36.5) 06/06/17 08:00 Attending/Attestation - Attestation I have personally seen and examined this patient.: Yes I have fully participated in the care of the patient.: Yes I have reviewed all pertinent clinical information, including history, physical exam and plan: Yes Notes (Text): 06/10/17 13:32 57 year old male with past medical history of alcohol abuse and dyslipidemia and active smoker who presented with complaint of cough and shortness of breath. In ER he was found to have fever of 102 with tachycardia and leukocytosis. CXR/ CT chest showed multiple cavitary and necrotics masses in lungs. ID and pulmonary are following. Continue with iv antibiotics and iv steroids. Fever has resolved and leukocytosis has overall improved. AFB x 3 were negative and isolation is discontinued. Will discuss with pulmonary and IR regarding possible aspiration or biopsy of masses on imaging. Statin on hold due to transaminitis. Hepatitis panel is negative. US abdomen is ordered. He was counselled on smoking cessation and alcohol abstinence. Will replete and repeat potassium. Darlyn Milner MD Hospitalist.
[2017-06-10] MEDS ORDERED: Potassium Chloride 40 mEq/30 ml LIQ UD PO ONE (13:35)
[2017-06-10] MEDS: Benzocaine/Menthol (Cepacol) Lozenge MT PRN (14:49)
--- NOTE | 2017-06-10 15:22 | CP.PCM.PN ---
Subjective - Date & Time of Evaluation Date of Evaluation: 06/10/17 Time of Evaluation: 13:00 - Subjective Subjective: Comfortable, no fevers, not in distress, still with cough. Objective - Vital Signs/Intake and Output Vital Signs (last 24 hours): Temp Pulse Resp BP Pulse Ox 99.2 F 121 H 20 139/97 H 95 06/10/17 07:00 06/10/17 07:00 06/10/17 07:00 06/10/17 07:00 06/10/17 07:00 Intake and Output: 06/10/17 06/10/17 06:59 18:59 Intake Total 1140 Balance 1140 - Medications Medications: Current Medications Albuterol/Ipratropium (Duoneb 3 Mg/0.5 Mg (3 Ml) Ud) 3 ml IH Q2H PRN PRN Reason: Shortness of Breath Atorvastatin Calcium (Lipitor) 20 mg PO DIN [facility] Last Admin: 06/08/17 18:05 Dose: 20 mg Benzocaine/Menthol (Cepacol Sore Throat) 1 aneudy MT Q2H PRN PRN Reason: Sore Throat Last Admin: 06/05/17 17:54 Dose: 1 aneudy Benzonatate (Tessalon Perles) 100 mg PO TID [facility] Last Admin: 06/09/17 18:26 Dose: 100 mg Folic Acid (Folic Acid) 1 mg PO DAILY [facility] Last Admin: 06/09/17 09:25 Dose: 1 mg Guaifenesin/Dextromethorphan (Robitussin Dm) 5 ml PO Q4H PRN PRN Reason: Cough Last Admin: 06/08/17 00:07 Dose: 5 ml Heparin Sodium (Porcine) (Heparin) 5,000 units SC Q12 [facility] PRN Reason: Protocol Last Admin: 06/09/17 21:27 Dose: Not Given Piperacillin Sod/Tazobactam Sod (Zosyn 3.375 In Ns 100ml) 100 mls @ 200 mls/hr IVPB Q6 [facility] PRN Reason: Protocol Stop: 07/04/17 12:01 Last Admin: 06/10/17 06:02 Dose: 200 mls/hr Vancomycin HCl (Vancomycin 1gm) 1 gm in 250 mls @ 167 mls/hr IVPB Q12H [facility] PRN Reason: Protocol Stop: 07/04/17 19:46 Last Admin: 06/09/17 21:27 Dose: 167 mls/hr Ibuprofen (Motrin Tab) 400 mg PO Q6H PRN PRN Reason: Pain, moderate (4-7) Methylprednisolone (Solu-Medrol) 20 mg IVP Q12 [facility] Last Admin: 06/09/17 21:26 Dose: 20 mg Multivitamins/Minerals (Therapeutic-M Tab) 1 tab PO 0800 [facility] Last Admin: 06/09/17 08:00 Dose: 1 tab Nicotine (Nicoderm Cq) 1 patch TD DAILY [facility] Last Admin: 06/09/17 09:25 Dose: 1 patch Pantoprazole Sodium (Protonix Ec Tab) 40 mg PO 0600 [facility] Last Admin: 06/10/17 08:33 Dose: Not Given Thiamine HCl (Vitamin B1 Tab) 100 mg PO DAILY [facility] Last Admin: 06/09/17 09:25 Dose: 100 mg - Labs Labs: 06/10/17 07:30 06/10/17 07:30 APTT 30.8 Seconds (25.1-36.5) 06/06/17 08:00 - Constitutional Appears: Chronically Ill - Head Exam Head Exam: NORMAL INSPECTION - ENT Exam ENT Exam: Mucous Membranes Moist - Neck Exam Neck Exam: absent: Meningismus - Respiratory Exam Respiratory Exam: Decreased Breath Sounds - Cardiovascular Exam Cardiovascular Exam: +S1, +S2 - GI/Abdominal Exam GI & Abdominal Exam: Soft. absent: Tenderness Assessment and Plan - Assessment and Plan (Free Text) Plan: Assessment severe sepsis probable due to aspiration pneumonia with necrosis and lung abscess and cavitation formation, R/O malignancy, sputum AFB negative history of alcohol abuse COPD HTN dyslipidemia Plan continue Vancomycin and Zosyn and will probably need at least 4 weeks of antibiotics - follow up recommendations of Dr. Sandeep fernández if there is anything that can be sampled from the lung HIV test is non-reactive sputum AFB and Quantiferon test is negative will monitor clinically discussed with Dr. Milner
--- NOTE | 2017-06-11 00:16 | PN ---
DATE: 06/10/2017 PULMONARY PROGRESS NOTE REFERRING PHYSICIAN: Dr. Milner. SUBJECTIVE: He is lying in the bed, head at 45 degrees. Night was unremarkable. Feels better, decreased cough, decreased shortness of breath. No nausea. No vomiting. No diarrhea. No leg pain or leg swelling. OBJECTIVE: GENERAL: In no acute distress. VITAL SIGNS: Temperature is 98, heart rate is 98, respiratory rate is 20, blood pressure 111/66, pulse ox 97% on room air. HEENT: Moist mucous membranes. Crowded airway. NECK: Supple. No JVD. LUNGS: Have a few crackles and wheezing. HEART: S1 and S2. ABDOMEN: Soft, nontender. No organomegaly. EXTREMITIES: No edema. NEUROLOGICAL: Awake, alert. Follows simple command. MEDICATIONS: He is on Cepacol lozenges q. 2 hour p.r.n., DuoNeb q. 2 hour p.r.n., folic acid 1 mg daily, heparin 5000 units subcu q. 12 hour, Lipitor 20 mg daily, Motrin 400 mg q. 6 hour p.r.n., Nicoderm patch daily, Protonix 40 mg daily, Robitussin DM 5 mL q. 4 hour p.r.n., Solu-Medrol 20 mg q. 12 hour, Tessalon Perles 100 mg 3 times a day, multivitamins daily, vancomycin 1 g IV q. 12 hour, vitamin B 100 mg daily, Zosyn 3.375 g IV q. 6 hour. LABORATORY DATA: Shows hemoglobin 10.8, hematocrit 33.3, WBC 12.1, platelet count is 518. Sodium 132, potassium 3.1, chloride 94, bicarbonate 25, BUN 9, creatinine 0.6, glucose 142, calcium 8.2, AST , ALT is 152, alk phos is 90, albumin is 2.8. Microbiology, sputum so far no growth and AFB have been negative. IMPRESSION AND PLAN: Aspiration pneumonia, lung abscess, history of alcohol abuse, chronic obstructive lung disease, hypertension, hyperlipidemia. Pulmonary point of view, doing much better. We will decrease Solu-Medrol. Continue antibiotics. Gastric prophylaxis. Deep venous thrombosis prophylaxis. Out of bed to chair. The patient is urged to stop excess of alcohol use. Thank you and we will follow with you. Joby Sheppard MD [facility] # [id number]
[2017-06-11] MEDS: Piperacillin/Tazobact 3.375 gm 100 ML IVPB SCH ×4 (06:01→23:55)
[2017-06-11] MEDS: Pantoprazole 40 mg EC Tab PO SCH (06:02)
[2017-06-11 07:56] LABS: BASO # 0.02 K/mm3 (0.0-2.0); BASO % 0.2 % (0.0-3.0); EOS % 0.1 % (1.5-5.0); GRAN # 6.9 (1.4-6.5); GRAN % 74.8 % (50.0-68.0); LYMPH # 1.8 (1.2-3.4); LYMPH % 19.6 % (22.0-35.0); MEAN CELL VOLUME 91.8 fl (80.0-105.0); MEAN CORPUSCULAR HEMOGLOBIN 30.1 pg (25.0-35.0); MEAN CORPUSCULAR HGB CONC 32.7 g/dl (31.0-37.0); MEAN PLATELET VOLUME 8.1 fl (7.0-11.0); MONO # 0.5 (0.1-0.6); MONO % 5.3 % (1.0-6.0); RBC 3.66 10^6/uL (3.5-6.1); WHITE BLOOD COUNT 9.2 10^3/ul (4.5-11.0)
--- NOTE | 2017-06-11 07:58 | RAD ---
HISTORY: pneumonia COMPARISON: Chest radiographs 06/05/2017 TECHNIQUE: Chest PA and lateral FINDINGS: LUNGS: A significant improvement in mid right pulmonary opacity is identified in the interval with residual hazy density reflective of pop possible residual infiltrate at the right upper and lower lobes. Lateral view demonstrates this reduction in fluid component and somewhat in the overall size within cavitation of the superior segment right lower lobe. Significant residual fluid remains. Similar pattern may be reflect in the right upper lobe cavitation. CT may be useful for greater characterization. No interval left-sided infiltrate. PLEURA: No significant pleural effusion identified. No pneumothorax apparent. CARDIOVASCULAR: Normal. OSSEOUS STRUCTURES: No significant abnormalities. VISUALIZED UPPER ABDOMEN: Normal. OTHER FINDINGS: None. IMPRESSION: Diminishing cavitation right upper and lower lobes with significant residual as discussed above. Diminishing surrounding infiltrate is also appreciated. Continued clinical correlation is advised. CT may be no useful if clinically warranted for more detailed follow-up.
[2017-06-11 08:25] LABS: ALB/GLOB RATIO 0.8 (1.1-1.8); ALBUMIN 2.8 g/dL (3.0-4.8); ALT/SGPT 297 U/L (7-56); AST/SGOT 336 U/L (17-59); BLOOD UREA NITROGEN 10 mg/dL (7-21); CALCIUM 8.6 mg/dL (8.4-10.5); GFR AFRICAN-AMERICAN > 60; GFR NON-AFRICAN AMERICAN > 60
[2017-06-11] MEDS: guaiFENesin DM 100 mg-10 mg/5 ml UD PO PRN (10:17)
[2017-06-11] MEDS: Multivitamin With Minerals Tab PO SCH (10:18)
[2017-06-11] MEDS: Vancomycin 1gm in NS 250ml 1 GM/250 ML BAG IVPB SCH ×2 (11:24→20:25)
--- NOTE | 2017-06-11 12:43 | US ---
HISTORY: RUQ US; elevated LFTs COMPARISON: None. TECHNIQUE: Sonographic evaluation of the abdomen. FINDINGS: LIVER: Measures 18.3 cm. Normal echogenicity of the liver parenchyma. Liver appears upper limits normal size. No mass. No intrahepatic bile duct dilatation. GALLBLADDER: Gallbladder appears contracted completely. No gallstones. COMMON BILE DUCT: Measures 4.8 mm. No stones. No dilatation. PANCREAS: Unremarkable as visualized. No mass. No ductal dilatation. RIGHT KIDNEY: Measures 10.7cm. Normal echogenicity. No calculus, mass, or hydronephrosis. LEFT KIDNEY: Measures 10.7cm. Normal echogenicity. No calculus, mass, or hydronephrosis. SPLEEN: Normal in size and contour. No mass. AORTA: No aneurysmal dilatation. IVC: Unremarkable. OTHER FINDINGS: None. IMPRESSION: Upper limits normal size liver with normal overall echogenicity. No discrete mass appreciated or cyst. No definite intrahepatic biliary dilatation. The gallbladder is contracted. Remainder the examination is unremarkable.
--- NOTE | 2017-06-11 13:36 | CP.PCM.PN ---
<Kaci Pappas - Last Filed: 06/11/17 13:33> Subjective - Date & Time of Evaluation Date of Evaluation: 06/11/17 Time of Evaluation: 13:33 - Subjective Subjective: Kaci Pappas, PGY1, Medicine Progress Note for Dr Wang: Patient seen and assessed at bedside. No acute events noted overnight. Reports improved cough. Denies fever, chills, n/v/abdominal pain, night sweats, abdominal pain, wheezing. Discussed with at bedside the management plan, states that she understands. Objective - Vital Signs/Intake and Output Vital Signs (last 24 hours): Temp Pulse Resp BP Pulse Ox 98 F 89 22 123/78 95 06/11/17 07:54 06/11/17 07:54 06/11/17 07:54 06/11/17 07:54 06/11/17 07:54 Intake and Output: 06/11/17 06/11/17 06:59 18:59 Intake Total 900 Balance 900 - Medications Medications: Current Medications Albuterol/Ipratropium (Duoneb 3 Mg/0.5 Mg (3 Ml) Ud) 3 ml IH Q2H PRN PRN Reason: Shortness of Breath Atorvastatin Calcium (Lipitor) 20 mg PO DIN [facility] Last Admin: 06/08/17 18:05 Dose: 20 mg Benzocaine/Menthol (Cepacol Sore Throat) 1 aneudy MT Q2H PRN PRN Reason: Sore Throat Last Admin: 06/10/17 14:49 Dose: 1 aneudy Benzonatate (Tessalon Perles) 100 mg PO TID [facility] Last Admin: 06/11/17 10:18 Dose: 100 mg Folic Acid (Folic Acid) 1 mg PO DAILY [facility] Last Admin: 06/11/17 10:17 Dose: 1 mg Guaifenesin/Dextromethorphan (Robitussin Dm) 5 ml PO Q4H PRN PRN Reason: Cough Last Admin: 06/11/17 10:17 Dose: 5 ml Heparin Sodium (Porcine) (Heparin) 5,000 units SC Q12 [facility] PRN Reason: Protocol Last Admin: 06/10/17 10:09 Dose: Not Given Piperacillin Sod/Tazobactam Sod (Zosyn 3.375 In Ns 100ml) 100 mls @ 200 mls/hr IVPB Q6 [facility] PRN Reason: Protocol Stop: 07/04/17 12:01 Last Admin: 06/11/17 06:01 Dose: 200 mls/hr Vancomycin HCl (Vancomycin 1gm) 1 gm in 250 mls @ 167 mls/hr IVPB Q12H [facility] PRN Reason: Protocol Stop: 07/04/17 19:46 Last Admin: 06/11/17 11:24 Dose: 167 mls/hr Ibuprofen (Motrin Tab) 400 mg PO Q6H PRN PRN Reason: Pain, moderate (4-7) Multivitamins/Minerals (Therapeutic-M Tab) 1 tab PO 0800 [facility] Last Admin: 06/11/17 10:18 Dose: 1 tab Nicotine (Nicoderm Cq) 1 patch TD DAILY [facility] Last Admin: 06/11/17 10:16 Dose: 1 patch Pantoprazole Sodium (Protonix Ec Tab) 40 mg PO 0600 [facility] Last Admin: 06/11/17 06:02 Dose: 40 mg Prednisone (Prednisone Tab) 20 mg PO DAILY [facility] Last Admin: 06/11/17 10:18 Dose: 20 mg Thiamine HCl (Vitamin B1 Tab) 100 mg PO DAILY [facility] Last Admin: 06/11/17 10:17 Dose: 100 mg - Labs Labs: 06/11/17 07:40 06/11/17 07:40 APTT 30.8 Seconds (25.1-36.5) 06/06/17 08:00 - Additional Findings Additional findings: - Constitutional Appears: Non-toxic, No Acute Distress - Head Exam Head Exam: ATRAUMATIC, NORMOCEPHALIC - Eye Exam Eye Exam: EOMI, Normal appearance, PERRL - ENT Exam ENT Exam: Mucous Membranes Moist - Neck Exam Neck Exam: Full ROM. absent: Lymphadenopathy - Respiratory Exam Respiratory Exam: Decreased breath sounds on RLL. NORMAL BREATHING PATTERN. absent: Accessory Muscle Use, Chest Wall Tenderness, Prolonged Expiratory Phase , Rales, Rhonchi, Respiratory Distress, Stridor - Cardiovascular Exam Cardiovascular Exam: REGULAR RHYTHM, RRR, +S1, +S2. absent: Tachycardia - GI/Abdominal Exam GI & Abdominal Exam: Soft, Normal Bowel Sounds. absent: Distended, Firm, Guarding, Rigid, Tenderness, Organomegaly, Rebound - Extremities Exam Extremities Exam: Full ROM, Normal Capillary Refill. absent: Calf Tenderness, Joint Swelling, Pedal Edema, Tenderness - Neurological Exam Neurological Exam: Alert, Awake, CN II-XII Intact, Oriented x3 - Psychiatric Exam Psychiatric exam: Normal Affect, Normal Mood - Skin Skin Exam: Dry, Intact, Normal Color, Warm Assessment and Plan - Assessment and Plan (Free Text) Assessment: 57 year old male with a past medical history significant for alcohol abuse, HTN and HLD who presents with dry cough with associated chills and throat irritation for a duration of four to five days. Patient was found to be febrile and with tachycardia and leukocytosis in the ED. A chest x-ray and chest CT were done and showed multiple cavitary and necrotic masses the right lung and left upper lobe infiltrates. Patient started on Vancomycin and Zosyn per ID. Patient now with three sputum cultures preliminarily negative for AFB. Currently determining if patient is a candidate for tissue diagnosis with either IR or Pulmonology: 1. Cavitary Lesions of Right Lower Lobe -Chest X-Ray showed large superior segment right lower lobe cavitary lesion -Chest CT showed multiple cavitary and necrotic masses the right lower lobe 5.3x7.8 cm. Right upper lobe, more traditional cavitary lesion with large air fluid level in anterior segment, 5.6x4.6cm. Faint subsegmental peripheral infiltrates in left upper lobe. -Previous Chest X-Ray taken on 05/25/16 showed hyperventilation and chronic changes consistent with emphysema and no masses or cavitary lesions -Three sputum cultures preliminarily negative for AFB and negative quantiferon -Currently determining if patient is appropriate candidate for tissue diagnosis with IR and Pulmonology -Continue with IV Vancomycin and Zosyn -tapered to Prednisone 20 mg PO daily. -Continue Duonebs Q2 PRN and Oxygen Therapy via NC -Continue Tessalon Perles PRN, Robitussin DM PRN and Cepacol PRN -Holding PRN Tylenol in setting of transaminitis -Ibuprofen 400mg PO Q6H PRN for pain control -Airborne and Contact precautions discontinued -Pulmonology and ID consulted, all recommendations appreciated 2. Transaminitis -Found to have elevated LFT's on CMP -Hepatitis panel neg -RUQ US shows liver size on upper side of normal, 18.3 cm. normal echogenicity of liver parenchyma. -Holding Lipitor and PRN Tylenol -Continue to trend with daily CMP 3. History of Alcohol Abuse -Alcohol level <10 on admission -Reports quitting two months ago -Continue Folic acid, Thiamine and MV supplementation 4. History of Tobacco Abuse -Continue Nicotine 21mg/day TD 5. History of HLD -LDL 109 this admission. -Holding Lipitor in setting of transaminitis GI Prophylaxis: Protonix DVT Prophylaxis: Heparin Patient seen and case discussed with attending, Dr. Wang. <Joby Wang - Last Filed: 06/14/17 15:09> Objective - Vital Signs/Intake and Output Vital Signs (last 24 hours): Temp Pulse Resp BP Pulse Ox 97.9 F 100 H 18 145/81 95 06/14/17 07:00 06/14/17 07:00 06/14/17 07:00 06/14/17 07:00 06/14/17 07:00 Intake and Output: 06/14/17 06/14/17 06:59 18:59 Intake Total 180 960 Output Total 450 Balance 180 510 - Medications Medications: Current Medications Albuterol/Ipratropium (Duoneb 3 Mg/0.5 Mg (3 Ml) Ud) 3 ml IH Q2H PRN PRN Reason: Shortness of Breath Atorvastatin Calcium (Lipitor) 20 mg PO DIN [facility] Last Admin: 06/08/17 18:05 Dose: 20 mg Benzocaine/Menthol (Cepacol Sore Throat) 1 aneudy MT Q2H PRN PRN Reason: Sore Throat Last Admin: 06/10/17 14:49 Dose: 1 aneudy Benzonatate (Tessalon Perles) 100 mg PO TID [facility] Last Admin: 06/14/17 13:45 Dose: Not Given Diphenhydramine HCl (Benadryl) 25 mg PO Q8H [facility] Last Admin: 06/14/17 11:00 Dose: Not Given Folic Acid (Folic Acid) 1 mg PO DAILY [facility] Last Admin: 06/14/17 09:03 Dose: Not Given Guaifenesin/Dextromethorphan (Robitussin Dm) 5 ml PO Q4H PRN PRN Reason: Cough Aztreonam (Azactam 2 Gm) 100 mls @ 100 mls/hr IVPB Q8 [facility] PRN Reason: Protocol Stop: 07/08/17 14:01 Last Admin: 06/14/17 13:44 Dose: Not Given Metronidazole (Flagyl) 500 mg in 100 mls @ 100 mls/hr IVPB Q8 [facility] PRN Reason: Protocol Last Admin: 06/14/17 13:45 Dose: Not Given Ibuprofen (Motrin Tab) 400 mg PO Q6H PRN PRN Reason: Pain, moderate (4-7) Multivitamins/Minerals (Therapeutic-M Tab) 1 tab PO 0800 [facility] Last Admin: 06/14/17 09:03 Dose: Not Given Nicotine (Nicoderm Cq) 1 patch TD DAILY [facility] Last Admin: 06/14/17 09:03 Dose: Not Given Pantoprazole Sodium (Protonix Ec Tab) 40 mg PO 0600 [facility] Last Admin: 06/14/17 05:50 Dose: Not Given Prednisone (Prednisone Tab) 10 mg PO DAILY [facility] Last Admin: 06/14/17 09:03 Dose: Not Given Thiamine HCl (Vitamin B1 Tab) 100 mg PO DAILY [facility] Last Admin: 06/14/17 09:03 Dose: Not Given - Labs Labs: 06/14/17 07:00 06/14/17 07:00 APTT 30.8 Seconds (25.1-36.5) 06/06/17 08:00 Attending/Attestation - Attestation I have personally seen and examined this patient.: Yes I have fully participated in the care of the patient.: Yes I have reviewed all pertinent clinical information, including history, physical exam and plan: Yes Notes (Text): 06/14/17 15:07 Patient was seen and examined with medical research tech. Agreed with assessment and plan. 57 year old male with a past medical history significant for alcohol abuse, HTN and HLD with multiple lung abscess and elevated LFT. On IV antibiotics as per ID.Cultures are negative. Statin are on hold Case was discussed with ID. We will follow up repeat CT chest Management plan was discussed in detail with patient. Education was provided.
--- NOTE | 2017-06-11 14:50 | CT ---
PROCEDURE: CT Chest without contrast HISTORY: cavitary lesion size decreasing with antibiotics? COMPARISON: CT 06/05/2017 TECHNIQUE: Contiguous axial images were obtained through the chest without intravenous contrast enhancement. Sagittal and coronal reconstructions were performed. Radiation dose (DLP): mGy-cm. This CT exam was performed using one or more of the following dose reduction techniques: Automated exposure control, adjustment of the mA and/or kV according to patient size, and/or use of iterative reconstruction technique. FINDINGS: LUNGS: Multiple right-sided lung abscesses are again demonstrated which have shown an overall decrease in size. There is now communication between 2 of the largest abscesses. This can be demonstrated on image 58 series 3. There is also a decrease in the pleural effusion at the right base. MEDIASTINUM: Unremarkable thoracic aorta. No aneurysm. Normal sized heart. Main pulmonary artery unremarkable. No vascular congestion. No lymphadenopathy. PLEURA: No pleural fluid. No pneumothorax. BONES: No fracture. No destructive lesion. UPPER ABDOMEN: Grossly unremarkable. OTHER FINDINGS: None. IMPRESSION: Multiple right-sided lung abscesses are again demonstrated which have shown an overall decrease in size. There is now communication between 2 of the largest abscesses. Decreased size of right pleural effusion
--- NOTE | 2017-06-11 18:14 | CP.PCM.PN ---
Subjective - Date & Time of Evaluation Date of Evaluation: 06/11/17 Time of Evaluation: 12:50 - Subjective Subjective: Confused as to why he is not yet getting a biopsy of his lungs. No fevers overnight. Objective - Vital Signs/Intake and Output Vital Signs (last 24 hours): Temp Pulse Resp BP Pulse Ox 98 F 89 22 123/78 95 06/11/17 07:54 06/11/17 07:54 06/11/17 07:54 06/11/17 07:54 06/11/17 07:54 Intake and Output: 06/11/17 06/11/17 06:59 18:59 Intake Total 900 Balance 900 - Medications Medications: Current Medications Albuterol/Ipratropium (Duoneb 3 Mg/0.5 Mg (3 Ml) Ud) 3 ml IH Q2H PRN PRN Reason: Shortness of Breath Atorvastatin Calcium (Lipitor) 20 mg PO DIN [facility] Last Admin: 06/08/17 18:05 Dose: 20 mg Benzocaine/Menthol (Cepacol Sore Throat) 1 aneudy MT Q2H PRN PRN Reason: Sore Throat Last Admin: 06/10/17 14:49 Dose: 1 aneudy Benzonatate (Tessalon Perles) 100 mg PO TID [facility] Last Admin: 06/10/17 19:25 Dose: 100 mg Folic Acid (Folic Acid) 1 mg PO DAILY [facility] Last Admin: 06/10/17 10:12 Dose: 1 mg Guaifenesin/Dextromethorphan (Robitussin Dm) 5 ml PO Q4H PRN PRN Reason: Cough Last Admin: 06/08/17 00:07 Dose: 5 ml Heparin Sodium (Porcine) (Heparin) 5,000 units SC Q12 [facility] PRN Reason: Protocol Last Admin: 06/10/17 10:09 Dose: Not Given Piperacillin Sod/Tazobactam Sod (Zosyn 3.375 In Ns 100ml) 100 mls @ 200 mls/hr IVPB Q6 [facility] PRN Reason: Protocol Stop: 07/04/17 12:01 Last Admin: 06/11/17 06:01 Dose: 200 mls/hr Vancomycin HCl (Vancomycin 1gm) 1 gm in 250 mls @ 167 mls/hr IVPB Q12H [facility] PRN Reason: Protocol Stop: 07/04/17 19:46 Last Admin: 06/10/17 20:42 Dose: 167 mls/hr Ibuprofen (Motrin Tab) 400 mg PO Q6H PRN PRN Reason: Pain, moderate (4-7) Multivitamins/Minerals (Therapeutic-M Tab) 1 tab PO 0800 [facility] Last Admin: 06/10/17 10:08 Dose: 1 tab Nicotine (Nicoderm Cq) 1 patch TD DAILY [facility] Last Admin: 06/10/17 10:14 Dose: 1 patch Pantoprazole Sodium (Protonix Ec Tab) 40 mg PO 0600 [facility] Last Admin: 06/11/17 06:02 Dose: 40 mg Prednisone (Prednisone Tab) 20 mg PO DAILY [facility] Thiamine HCl (Vitamin B1 Tab) 100 mg PO DAILY [facility] Last Admin: 06/10/17 10:08 Dose: 100 mg - Labs Labs: 06/11/17 07:40 06/11/17 07:40 APTT 30.8 Seconds (25.1-36.5) 06/06/17 08:00 - Constitutional Appears: Non-toxic - Head Exam Head Exam: NORMAL INSPECTION - ENT Exam ENT Exam: Mucous Membranes Moist - Neck Exam Neck Exam: absent: Meningismus - Respiratory Exam Respiratory Exam: Decreased Breath Sounds - Cardiovascular Exam Cardiovascular Exam: +S1, +S2 - GI/Abdominal Exam GI & Abdominal Exam: Soft. absent: Tenderness Assessment and Plan - Assessment and Plan (Free Text) Plan: Assessment severe sepsis probable due to aspiration pneumonia with necrosis and lung abscess and cavitation formation, R/O malignancy, sputum AFB negative history of alcohol abuse COPD HTN dyslipidemia Plan continue Vancomycin and Zosyn and will probably need at least 4 weeks of antibiotics - follow up recommendations of Dr. Sheppard to see if there is anything that can be sampled from the lung HIV test is non-reactive sputum AFB and Quantiferon test is negative will continue monitor clinically discussed with Dr. Milner and Dr. Wang
--- NOTE | 2017-06-12 00:16 | PN ---
DATE: 06/11/2017 REFERRING PHYSICIAN: Dr. Milner. SUBJECTIVE: The patient is lying in the bed, head at 45 degrees. Feels better. Decreased cough. Decreased shortness of breath. No nausea. No vomiting. No diarrhea. No leg pain or leg swelling. is at bedside. OBJECTIVE: GENERAL: In no acute distress. VITAL SIGNS: Temperature is 98, heart rate is 89, respiratory rate is 22, blood pressure 123/78, pulse ox 95% on room air. HEENT: Moist mucous membranes. No ulcer or thrush. NECK: Supple. No JVD. LUNGS: Have prolonged expiratory phases. Scattered rhonchi. HEART: S1 and S2. ABDOMEN: Soft, nontender. No organomegaly. EXTREMITIES: There is no edema. NEUROLOGIC: Awake, alert. Follows simple commands. MEDICATIONS: He is on Cepacol lozenges q. 2 hour p.r.n., DuoNeb q. 2 hour p.r.n., folic acid 1 mg daily, heparin 5000 units subcu q.12 hour, Lipitor 20 mg daily, Motrin 400 mg q. 6 hour p.r.n., Nicoderm patch daily, prednisone 20 mg daily, Protonix 40 mg daily, Robitussin p.r.n. basis, Tessalon Perles 100 mg 3 times a day, multivitamin daily, vancomycin 1 g IV q.12 hour, vitamin B 100 mg daily, Zosyn 3.375 g q. 6 hour. LABORATORY DATA: Shows hemoglobin 11.0, hematocrit 33.6, WBC 9.2, platelet is 488. Sodium 138, potassium 3.7, chloride 102, bicarbonate 27, BUN 10, creatinine 0.6, glucose 97, calcium 8.6, iron is 16. AST is 336, ALT 297. Albumin is 2.8. Repeat CAT scan of the chest done today, which shows multiple right-sided lung abscesses again demonstrated, which have shown an overall decrease in size. There is no communication between two of the large abscesses. Decreased size of the right pleural effusion. IMPRESSION AND PLAN: Aspiration pneumonia with multiple lung abscesses, history of alcohol abuse, chronic obstructive lung disease, hypertension, hyperlipidemia. Case discussed with medical scheduler today. Patient may go to TICU type of services to continue IV antibiotics. At this point, I will recommend to continue IV antibiotics until significant improvement in lung abscesses. Gastric prophylaxis, deep vein thrombosis prophylaxis, out-of-bed to chair, incentive spirometer, physical therapy. Thank you and we will follow with you. Joby Sheppard MD
[2017-06-12] MEDS: Pantoprazole 40 mg EC Tab PO SCH (06:09)
[2017-06-12] MEDS: Piperacillin/Tazobact 3.375 gm 100 ML IVPB SCH (06:13)
[2017-06-12] MEDS: Vancomycin 1gm in NS 250ml 1 GM/250 ML BAG IVPB SCH ×2 (08:00→21:57)
[2017-06-12 08:02] LABS: BASO # 0.06 K/mm3 (0.0-2.0); BASO % 0.6 % (0.0-3.0); EOS # 0.1 (0.0-0.7); EOS % 0.5 % (1.5-5.0); GRAN # 7.59 (1.4-6.5); GRAN % 70.5 % (50.0-68.0); LYMPH # 2.4 (1.2-3.4); LYMPH % 22.7 % (22.0-35.0); MEAN CELL VOLUME 92.9 fl (80.0-105.0); MEAN CORPUSCULAR HEMOGLOBIN 30.1 pg (25.0-35.0); MEAN CORPUSCULAR HGB CONC 32.4 g/dl (31.0-37.0); MEAN PLATELET VOLUME 8.1 fl (7.0-11.0); MONO # 0.6 (0.1-0.6); MONO % 5.7 % (1.0-6.0); RBC 3.65 10^6/uL (3.5-6.1); RED CELL DISTRIBUTION WIDTH 15.1 % (11.5-14.5); WHITE BLOOD COUNT 10.8 10^3/ul (4.5-11.0)
[2017-06-12] MEDS ORDERED: guaiFENesin DM 200 mg-20 mg/10 ml UD PO PRN (08:10)
[2017-06-12 08:26] LABS: ALB/GLOB RATIO 0.8 (1.1-1.8); ALBUMIN 2.9 g/dL (3.0-4.8); ALT/SGPT 382 U/L (7-56); AST/SGOT 342 U/L (17-59); BLOOD UREA NITROGEN 9 mg/dL (7-21); CALCIUM 8.6 mg/dL (8.4-10.5); GFR AFRICAN-AMERICAN > 60; GFR NON-AFRICAN AMERICAN > 60
[2017-06-12] MEDS: Multivitamin With Minerals Tab PO SCH (11:47)
--- NOTE | 2017-06-12 12:55 | CP.PCM.PN ---
Subjective - Date & Time of Evaluation Date of Evaluation: 06/12/17 Time of Evaluation: 12:25 - Subjective Subjective: Anxious because he is not getting biopsy of his lungs. No fevers, no abdominal pain. Objective - Vital Signs/Intake and Output Vital Signs (last 24 hours): Temp Pulse Resp BP Pulse Ox 98.6 F 94 H 20 139/89 94 L 06/12/17 00:05 06/12/17 00:05 06/12/17 00:05 06/12/17 00:05 06/12/17 00:05 Intake and Output: 06/12/17 06/12/17 06:59 18:59 Intake Total 1410 Balance 1410 - Medications Medications: Current Medications Albuterol/Ipratropium (Duoneb 3 Mg/0.5 Mg (3 Ml) Ud) 3 ml IH Q2H PRN PRN Reason: Shortness of Breath Atorvastatin Calcium (Lipitor) 20 mg PO DIN [facility] Last Admin: 06/08/17 18:05 Dose: 20 mg Benzocaine/Menthol (Cepacol Sore Throat) 1 aneudy MT Q2H PRN PRN Reason: Sore Throat Last Admin: 06/10/17 14:49 Dose: 1 aneudy Benzonatate (Tessalon Perles) 100 mg PO TID [facility] Last Admin: 06/11/17 18:32 Dose: 100 mg Folic Acid (Folic Acid) 1 mg PO DAILY [facility] Last Admin: 06/11/17 10:17 Dose: 1 mg Guaifenesin/Dextromethorphan (Robitussin Dm) 5 ml PO Q4H PRN PRN Reason: Cough Heparin Sodium (Porcine) (Heparin) 5,000 units SC Q12 [facility] PRN Reason: Protocol Last Admin: 06/11/17 22:08 Dose: Not Given Piperacillin Sod/Tazobactam Sod (Zosyn 3.375 In Ns 100ml) 100 mls @ 200 mls/hr IVPB Q6 [facility] PRN Reason: Protocol Stop: 07/04/17 12:01 Last Admin: 06/12/17 06:13 Dose: 200 mls/hr Vancomycin HCl (Vancomycin 1gm) 1 gm in 250 mls @ 167 mls/hr IVPB Q12H [facility] PRN Reason: Protocol Stop: 07/04/17 19:46 Last Admin: 06/11/17 20:25 Dose: 167 mls/hr Ibuprofen (Motrin Tab) 400 mg PO Q6H PRN PRN Reason: Pain, moderate (4-7) Multivitamins/Minerals (Therapeutic-M Tab) 1 tab PO 0800 [facility] Last Admin: 06/11/17 10:18 Dose: 1 tab Nicotine (Nicoderm Cq) 1 patch TD DAILY [facility] Last Admin: 06/11/17 10:16 Dose: 1 patch Pantoprazole Sodium (Protonix Ec Tab) 40 mg PO 0600 [facility] Last Admin: 06/12/17 06:09 Dose: 40 mg Prednisone (Prednisone Tab) 20 mg PO DAILY [facility] Last Admin: 06/11/17 10:18 Dose: 20 mg Thiamine HCl (Vitamin B1 Tab) 100 mg PO DAILY [facility] Last Admin: 06/11/17 10:17 Dose: 100 mg - Labs Labs: 06/12/17 07:45 06/12/17 07:45 APTT 30.8 Seconds (25.1-36.5) 06/06/17 08:00 - Constitutional Appears: Chronically Ill - Head Exam Head Exam: NORMAL INSPECTION - Respiratory Exam Respiratory Exam: Decreased Breath Sounds - Cardiovascular Exam Cardiovascular Exam: +S1, +S2 - GI/Abdominal Exam GI & Abdominal Exam: Soft. absent: Tenderness Assessment and Plan - Assessment and Plan (Free Text) Plan: Assessment severe sepsis probable due to aspiration pneumonia with necrosis and lung abscess and cavitation formation, R/O malignancy, sputum AFB negative transaminitis, etiology to be determined, R/O drug-induced history of alcohol abuse COPD HTN dyslipidemia Plan continue Vancomycin and Zosyn and will probably need at least 4 weeks of antibiotics - will hold Zosyn for now because of the increased AST and ALT, although the usual picture is one of cholestasis which is not seen here - will trend AST, ALT HIV test is non-reactive sputum AFB and Quantiferon test is negative will continue monitor clinically discussed with Dr. Wang
--- NOTE | 2017-06-12 14:19 | CP.PCM.PN ---
<Kaci Pappas - Last Filed: 06/12/17 15:03> Subjective - Date & Time of Evaluation Date of Evaluation: 06/12/17 Time of Evaluation: 14:19 - Subjective Subjective: Kaci Pappas, PGY1, Medicine Progress Note for Dr Wang: Patient seen and assessed at bedside. No acute events noted overnight. States that his cough is better. Denies fever, chills, n/v, wheezing, sob, abdominal pain, jaundice, leg swelling. Pt informed that his LFTs are rising, for which ID discontinued IV antibiotic. Discussed in detail the workup and management done so far. Pt states that he would like second opinion regarding his rising LFTs. States that he would like to go home. Objective - Vital Signs/Intake and Output Vital Signs (last 24 hours): Temp Pulse Resp BP Pulse Ox 98.6 F 91 H 18 158/100 H 95 06/12/17 07:00 06/12/17 07:00 06/12/17 07:00 06/12/17 07:00 06/12/17 07:00 Intake and Output: 06/12/17 06/12/17 06:59 18:59 Intake Total 1410 Balance 1410 - Medications Medications: Current Medications Albuterol/Ipratropium (Duoneb 3 Mg/0.5 Mg (3 Ml) Ud) 3 ml IH Q2H PRN PRN Reason: Shortness of Breath Atorvastatin Calcium (Lipitor) 20 mg PO DIN [facility] Last Admin: 06/08/17 18:05 Dose: 20 mg Benzocaine/Menthol (Cepacol Sore Throat) 1 aneudy MT Q2H PRN PRN Reason: Sore Throat Last Admin: 06/10/17 14:49 Dose: 1 aneudy Benzonatate (Tessalon Perles) 100 mg PO TID [facility] Last Admin: 06/12/17 11:47 Dose: 100 mg Folic Acid (Folic Acid) 1 mg PO DAILY [facility] Last Admin: 06/12/17 11:47 Dose: 1 mg Guaifenesin/Dextromethorphan (Robitussin Dm) 5 ml PO Q4H PRN PRN Reason: Cough Heparin Sodium (Porcine) (Heparin) 5,000 units SC Q12 [facility] PRN Reason: Protocol Last Admin: 06/12/17 11:59 Dose: Not Given Piperacillin Sod/Tazobactam Sod (Zosyn 3.375 In Ns 100ml) 100 mls @ 200 mls/hr IVPB Q6 [facility] PRN Reason: Protocol Stop: 07/04/17 12:01 Last Admin: 06/12/17 06:13 Dose: 200 mls/hr Vancomycin HCl (Vancomycin 1gm) 1 gm in 250 mls @ 167 mls/hr IVPB Q12H [facility] PRN Reason: Protocol Stop: 07/04/17 19:46 Last Admin: 06/12/17 08:00 Dose: 167 mls/hr Ibuprofen (Motrin Tab) 400 mg PO Q6H PRN PRN Reason: Pain, moderate (4-7) Multivitamins/Minerals (Therapeutic-M Tab) 1 tab PO 0800 [facility] Last Admin: 06/12/17 11:47 Dose: Not Given Nicotine (Nicoderm Cq) 1 patch TD DAILY [facility] Last Admin: 06/12/17 11:48 Dose: Not Given Pantoprazole Sodium (Protonix Ec Tab) 40 mg PO 0600 [facility] Last Admin: 06/12/17 06:09 Dose: 40 mg Prednisone (Prednisone Tab) 20 mg PO DAILY [facility] Last Admin: 06/12/17 11:47 Dose: Not Given Thiamine HCl (Vitamin B1 Tab) 100 mg PO DAILY [facility] Last Admin: 06/12/17 11:47 Dose: Not Given - Labs Labs: 06/12/17 07:45 06/12/17 07:45 APTT 30.8 Seconds (25.1-36.5) 06/06/17 08:00 - Constitutional Appears: Non-toxic, No Acute Distress - Head Exam Head Exam: ATRAUMATIC, NORMOCEPHALIC - Eye Exam Eye Exam: EOMI, PERRL. absent: Conjunctival injection, Nystagmus, Scleral icterus Pupil Exam: NORMAL ACCOMODATION, PERRL. absent: Fixed, Irregular, Unequal - ENT Exam ENT Exam: Mucous Membranes Moist - Neck Exam Neck Exam: Full ROM. absent: Tenderness - Respiratory Exam Respiratory Exam: Decreased Breath Sounds (right upper and lower lobes.), NORMAL BREATHING PATTERN. absent: Accessory Muscle Use, Chest Wall Tenderness, Wheezes, Respiratory Distress, Stridor - Cardiovascular Exam Cardiovascular Exam: RRR, +S1, +S2. absent: Tachycardia, Murmur - GI/Abdominal Exam GI & Abdominal Exam: Soft, Normal Bowel Sounds. absent: Distended, Firm, Guarding, Rigid, Tenderness, Mass, Organomegaly, Rebound - Extremities Exam Extremities Exam: Normal Inspection. absent: Calf Tenderness, Pedal Edema - Back Exam Back Exam: NORMAL INSPECTION - Neurological Exam Neurological Exam: Alert, Awake, Oriented x3 - Psychiatric Exam Psychiatric exam: Normal Affect, Normal Mood - Skin Skin Exam: Dry, Normal Color, Warm Assessment and Plan - Assessment and Plan (Free Text) Assessment: 57 year old male with a past medical history significant for alcohol abuse, HTN and HLD, who presents with dry cough with associated chills and throat irritation for a duration of four to five days. Patient was found to be febrile , tachycardic and with leukocytosis in the ED. A chest x-ray and chest CT were done and showed multiple cavitary and necrotic masses in the right lung and subsegmental left upper lobe infiltrates. Three sputum cultures neg for AFB. Patient is on Vancomycin and Zosyn D7 per ID. Pt developed rising LFTs, discontinued statin, tylenol since 06/09. Held Zosyn today. Abd US showed normal echogenicity of liver, liver size on upper limit of normal. As per pulm and ID, will treat pt with IV abx for 4 weeks. Pt would like to go home, (refuses TCU/ rehab currently): 1. Cavitary Lesions of Right Upper/Lower Lobes: -Chest X-Ray showed large superior segment right lower lobe cavitary lesion -Chest CT showed multiple cavitary and necrotic masses the right lower lobe 5.3x7.8 cm. Right upper lobe, more traditional cavitary lesion with large air fluid level in anterior segment, 5.6x4.6cm. Faint subsegmental peripheral infiltrates in left upper lobe. -Previous Chest X-Ray taken on 05/25/16 showed hyperventilation and chronic changes consistent with emphysema and no masses or cavitary lesions -Repeat chest CT: decrease in size of rigth sided lung abscess. communication btw 2 of largest abscesses. decreased size of right pleural effusion. -Three sputum cultures preliminarily negative for AFB and negative quantiferon -C/w IV Vanco. Hold IV Zosyn. -tapered to Prednisone 20 mg PO daily. -Continue Duonebs Q2 PRN -Continue Tessalon Perles PRN, Robitussin DM PRN and Cepacol PRN -Ibuprofen 400mg PO Q6H PRN for pain control -Pulmonology and ID consulted, all recommendations appreciated 2. Transaminitis -Found to have elevated LFT's on CMP -Hepatitis panel neg -RUQ US shows liver size on upper side of normal, 18.3 cm. normal echogenicity of liver parenchyma. -Holding Lipitor, PRN Tylenol, zosyn -Continue to trend with daily CMP -GI consulted. F/u recs. 3. History of Alcohol Abuse -Alcohol level <10 on admission -Reports quitting two months ago -Continue Folic acid, Thiamine and MV supplementation 4. History of Tobacco Abuse -Continue Nicotine 21mg/day TD 5. History of HLD -LDL 109, triglycerides 208, cholesterol 148, HDL 11 this admission. -Holding Lipitor in setting of transaminitis. Pt also does not want Lipitor as he wants to bring down the levels per his diet. GI Prophylaxis: Protonix DVT Prophylaxis: Heparin Diet: Heart healthy diet (low fat, low cholesterol) Patient seen and case discussed with attending, Dr. Wang. <Joby Wang - Last Filed: 06/14/17 15:12> Objective - Vital Signs/Intake and Output Vital Signs (last 24 hours): Temp Pulse Resp BP Pulse Ox 97.9 F 100 H 18 145/81 95 06/14/17 07:00 06/14/17 07:00 06/14/17 07:00 06/14/17 07:00 06/14/17 07:00 Intake and Output: 06/14/17 06/14/17 06:59 18:59 Intake Total 180 960 Output Total 450 Balance 180 510 - Medications Medications: Current Medications Albuterol/Ipratropium (Duoneb 3 Mg/0.5 Mg (3 Ml) Ud) 3 ml IH Q2H PRN PRN Reason: Shortness of Breath Atorvastatin Calcium (Lipitor) 20 mg PO DIN [facility] Last Admin: 06/08/17 18:05 Dose: 20 mg Benzocaine/Menthol (Cepacol Sore Throat) 1 aneudy MT Q2H PRN PRN Reason: Sore Throat Last Admin: 06/10/17 14:49 Dose: 1 aneudy Benzonatate (Tessalon Perles) 100 mg PO TID [facility] Last Admin: 06/14/17 13:45 Dose: Not Given Diphenhydramine HCl (Benadryl) 25 mg PO Q8H [facility] Last Admin: 06/14/17 11:00 Dose: Not Given Folic Acid (Folic Acid) 1 mg PO DAILY [facility] Last Admin: 06/14/17 09:03 Dose: Not Given Guaifenesin/Dextromethorphan (Robitussin Dm) 5 ml PO Q4H PRN PRN Reason: Cough Aztreonam (Azactam 2 Gm) 100 mls @ 100 mls/hr IVPB Q8 [facility] PRN Reason: Protocol Stop: 07/08/17 14:01 Last Admin: 06/14/17 13:44 Dose: Not Given Metronidazole (Flagyl) 500 mg in 100 mls @ 100 mls/hr IVPB Q8 [facility] PRN Reason: Protocol Last Admin: 06/14/17 13:45 Dose: Not Given Ibuprofen (Motrin Tab) 400 mg PO Q6H PRN PRN Reason: Pain, moderate (4-7) Multivitamins/Minerals (Therapeutic-M Tab) 1 tab PO 0800 [facility] Last Admin: 06/14/17 09:03 Dose: Not Given Nicotine (Nicoderm Cq) 1 patch TD DAILY [facility] Last Admin: 06/14/17 09:03 Dose: Not Given Pantoprazole Sodium (Protonix Ec Tab) 40 mg PO 0600 [facility] Last Admin: 06/14/17 05:50 Dose: Not Given Prednisone (Prednisone Tab) 10 mg PO DAILY [facility] Last Admin: 06/14/17 09:03 Dose: Not Given Thiamine HCl (Vitamin B1 Tab) 100 mg PO DAILY [facility] Last Admin: 06/14/17 09:03 Dose: Not Given - Labs Labs: 06/14/17 07:00 06/14/17 07:00 APTT 30.8 Seconds (25.1-36.5) 06/06/17 08:00 Attending/Attestation - Attestation I have personally seen and examined this patient.: Yes I have fully participated in the care of the patient.: Yes I have reviewed all pertinent clinical information, including history, physical exam and plan: Yes Notes (Text): 06/14/17 15:10 Patient was seen and examined with emergency medical technician basic. Agreed with assessment and plan. 57 year old male with a past medical history significant for alcohol abuse, HTN and HLD with multiple lung abscess and elevated LFT. Repeat CT chest showed decrease in the size of lung abscess. We will hold Zosyn,We will also get GI consult. Case was discussed with ID Management plan was discussed in detail with patient. Education was provided. 06/14/17 15:09
--- NOTE | 2017-06-12 14:42 | CP.PCM.CON ---
History of Present Illness - History of Present Illness History of Present Illness: GI Consult Note - Mati Bond PGY2 Reason for consult: elevated LFT's HPI: Patient is a 57yo male with past medical history of alcohol abuse, hypertension and hyperlipidemia who originally presented to [facility] with complaints of non-productive cough associated with chills and sore throat for four to five days. He denied any alleviating or exacerbating factors however admitted to weight loss of approximately 10lbs in the past several months. On evaluation in the ED, a chest xray revealed a large superior segment right lower lobe likely cavitary lesion. A chest CT demonstrated multiple cavitary and necrotic masses in the right lung as well as subsegmental infiltrates in the left upper lobe. ID and Pulmonology were consulted. The patient was subsequently started on IV antibiotics and a quantiferon gold for detection of TB was noted to be negative. During this time, patient had an elevation of his liver function tests which prompted GI evaluation. He denies abdominal pain, nausea, vomiting, melena, hematochezia, hematemesis. 12point ROS as per HPI above otherwise negative PMHx: Alcohol abuse, hypertension, hyperlipidemia PSHx: Denies Allergies: NKDA Family Hx: Denies familial history of cancer Social History: Tobacco use ~30 year pack smoking history; former drinker reportedly quit 04/15/17; denies any illicit drug use Past Patient History - Infectious Disease Hx of Infectious Diseases: None - Tetanus Immunizations Tetanus Immunization: Unknown - Past Medical History & Family History Past Medical History?: Yes Past Family History: Reviewed and not pertinent - Past Social History Smoking Status: Light Smoker < 10 Cigarettes Daily - CARDIAC Hx Hypertension: Yes - PULMONARY Hx Chronic Obstructive Pulmonary Disease (COPD): Yes - NEUROLOGICAL Hx Neurological Disorder: No - HEENT Hx HEENT Problems: No - RENAL Hx Chronic Kidney Disease: No - ENDOCRINE/METABOLIC Hx Endocrine Disorders: No - HEMATOLOGICAL/ONCOLOGICAL Hx Blood Disorders: No - INTEGUMENTARY Hx Dermatological Problems: No - MUSCULOSKELETAL/RHEUMATOLOGICAL Hx Musculoskeletal Disorders: No - GASTROINTESTINAL Hx Gastrointestinal Disorders: No - GENITOURINARY/GYNECOLOGICAL Hx Genitourinary Disorders: No - PSYCHIATRIC Hx Psychophysiologic Disorder: No Hx Substance Use: No - SURGICAL HISTORY Hx Surgeries: No - ANESTHESIA Hx Anesthesia: No Meds Allergies/Adverse Reactions: Allergies Allergy/AdvReac Type Severity Reaction Status Date / Time No Known Allergies Allergy Verified 06/05/17 11:56 - Medications Medications: Current Medications Albuterol/Ipratropium (Duoneb 3 Mg/0.5 Mg (3 Ml) Ud) 3 ml IH Q2H PRN PRN Reason: Shortness of Breath Atorvastatin Calcium (Lipitor) 20 mg PO DIN [facility] Last Admin: 06/08/17 18:05 Dose: 20 mg Benzocaine/Menthol (Cepacol Sore Throat) 1 aneudy MT Q2H PRN PRN Reason: Sore Throat Last Admin: 06/10/17 14:49 Dose: 1 aneudy Benzonatate (Tessalon Perles) 100 mg PO TID [facility] Last Admin: 06/12/17 11:47 Dose: 100 mg Folic Acid (Folic Acid) 1 mg PO DAILY [facility] Last Admin: 06/12/17 11:47 Dose: 1 mg Guaifenesin/Dextromethorphan (Robitussin Dm) 5 ml PO Q4H PRN PRN Reason: Cough Heparin Sodium (Porcine) (Heparin) 5,000 units SC Q12 [facility] PRN Reason: Protocol Last Admin: 06/12/17 11:59 Dose: Not Given Piperacillin Sod/Tazobactam Sod (Zosyn 3.375 In Ns 100ml) 100 mls @ 200 mls/hr IVPB Q6 [facility] PRN Reason: Protocol Stop: 07/04/17 12:01 Last Admin: 06/12/17 06:13 Dose: 200 mls/hr Vancomycin HCl (Vancomycin 1gm) 1 gm in 250 mls @ 167 mls/hr IVPB Q12H [facility] PRN Reason: Protocol Stop: 07/04/17 19:46 Last Admin: 06/12/17 08:00 Dose: 167 mls/hr Ibuprofen (Motrin Tab) 400 mg PO Q6H PRN PRN Reason: Pain, moderate (4-7) Multivitamins/Minerals (Therapeutic-M Tab) 1 tab PO 0800 [facility] Last Admin: 06/12/17 11:47 Dose: Not Given Nicotine (Nicoderm Cq) 1 patch TD DAILY [facility] Last Admin: 06/12/17 11:48 Dose: Not Given Pantoprazole Sodium (Protonix Ec Tab) 40 mg PO 0600 [facility] Last Admin: 06/12/17 06:09 Dose: 40 mg Prednisone (Prednisone Tab) 20 mg PO DAILY [facility] Last Admin: 06/12/17 11:47 Dose: Not Given Thiamine HCl (Vitamin B1 Tab) 100 mg PO DAILY [facility] Last Admin: 06/12/17 11:47 Dose: Not Given Results - Vital Signs Recent Vital Signs: Last Vital Signs Temp 98.6 F 06/12/17 07:00 Pulse 91 H 06/12/17 07:00 Resp 18 06/12/17 07:00 BP 158/100 H 06/12/17 07:00 Pulse Ox 95 06/12/17 07:00 - Labs Result Diagrams: 06/12/17 07:45 06/12/17 07:45 Labs: Laboratory Results - last 24 hr 06/12/17 06/12/17 07:45 07:45 WBC 10.8 RBC 3.65 Hgb 11.0 L Hct 33.9 L MCV 92.9 MCH 30.1 MCHC 32.4 RDW 15.1 H Plt Count 523 H MPV 8.1 Gran % 70.5 H Lymph % (Auto) 22.7 Christian % (Auto) 5.7 Eos % (Auto) 0.5 L Baso % (Auto) 0.6 Gran # 7.59 H Lymph # (Auto) 2.4 Christian # (Auto) 0.6 Eos # (Auto) 0.1 Baso # (Auto) 0.06 Sodium 139 Potassium 3.6 Chloride 104 Carbon Dioxide 27 Anion Gap 12 BUN 9 Creatinine 0.6 L Est GFR ( Amer) > 60 Est GFR (Non-Af Amer) > 60 Random Glucose 91 Calcium 8.6 Total Bilirubin 0.2 AST 342 H ALT 382 H Alkaline Phosphatase 93 Total Protein 6.6 Albumin 2.9 L Globulin 3.7 Albumin/Globulin Ratio 0.8 L Assessment & Plan - Assessment and Plan (Free Text) Plan: 57yo male with history of alcohol abuse, hypertension and hyperlipidemia admitted for evaluation and treatment of bilateral lung masses/infiltrates. GI consulted for evaluation of elevated LFT's. 1. Transaminitis 2. Bilateral lung mass/infiltrates 3. Hx of alcohol abuse Plan: -Triple phase liver CT pending to rule out hepatic mass -Autoimmune workup ordered and is pending -Alcohol level <10 -Hepatitis panel negative -Abdominal US revealed normal echogenicity of liver parenchyma, no apparent masses or intrahepatic bile duct dilatation; no gallstones, CBD measures 4.8mm -Zosyn, lipitor and tylenol presently on hold
--- NOTE | 2017-06-12 17:21 | PN ---
DATE: PULMONARY PROGRESS NOTE REFERRING PHYSICIAN: Dr. Milner. SUBJECTIVE: He is lying in the bed, head at 45 degrees. Mild cough and shortness of breath. No chest pain. No nausea, no vomiting, no diarrhea, leg pain or leg swelling. OBJECTIVE: GENERAL: In no acute distress. VITAL SIGNS: Temp is 98, heart rate is 91, respiratory rate is 18, blood pressure 158/100, pulse ox 95% on room air. HEENT: Moist mucous membrane. Crowded airway. NECK: Supple. No JVD. LUNGS: Scattered rhonchi, has prolonged expiratory phases. There is some wheezing. HEART: S1 and S2. ABDOMEN: Soft and nontender. No organomegaly. EXTREMITIES: No edema. NEUROLOGICAL: Awake and alert. Follows simple command. MEDICATIONS: He is on Cepacol lozenges q.2 hour p.r.n., DuoNeb q.2 hour p.r.n., folic acid 1 mg daily, heparin 5000 units subcu q.12 hours, Lipitor 20 mg daily, Motrin 400 mg q.6 hours p.r.n., Nicoderm patch daily, prednisone 20 mg daily, Protonix 40 mg daily, Robitussin DM 5 mL q.4 hours p.r.n., Tessalon Perles 100 mg 3 times a day, multivitamins daily, vancomycin 1 g IV q.12 hours, vitamin B 100 mg daily, Zosyn 3.375 g q.6 hour. LABORATORY DATA: Shows hemoglobin 11.0, hematocrit 33.9, WBC 10.8, platelets 523. Sodium 139, potassium 3.6, chloride 104, bicarbonate 27, BUN 9, creatinine 0.6, glucose 91, calcium 8.6, AST 342, ALT 382, alkaline phosphatase 93, albumin 3.7. IMPRESSION AND PLAN: Aspiration pneumonia with multiple cavitary lesion probably abscesses in the lung field, history of chronic obstructive lung disease, alcohol abuse, hypertension, hyperlipidemia. Spoke to the patient and family at the bedside. All the questions answered. Need to continue IV antibiotics to see significant improvement in cavitary lesion in the lung field. Patient could be transferred to TICU to continue care. Also, order bed to chair, physical therapy. Continue to follow liver enzymes. Avoid hepatotoxic medications. We will follow with you. Joby Sheppard MD
--- NOTE | 2017-06-13 06:34 | CP.PCM.CON ---
<Gama Bond - Last Filed: 06/13/17 08:51> History of Present Illness - History of Present Illness History of Present Illness: GI Consult Note - Mati Bond PGY2 Reason for consult: elevated LFT's HPI: Patient is a 57yo male with past medical history of alcohol abuse, hypertension and hyperlipidemia who [place] [facility] [place] complaints of non-productive cough associated with chills and sore throat for four to five days. He denied any alleviating or exacerbating factors however admitted to weight loss of approximately 10lbs in the past several months. On evaluation in the ED, a chest xray revealed a large superior segment right lower lobe likely cavitary lesion. A chest CT demonstrated multiple cavitary and necrotic masses in the right lung as well as subsegmental infiltrates in the left upper lobe. ID and Pulmonology were consulted. The patient was subsequently started on IV antibiotics and a quantiferon gold for detection of TB was noted to be negative. During this time, patient had an elevation of his liver function tests which prompted GI evaluation. He denies abdominal pain, nausea, vomiting, melena, hematochezia, hematemesis. 12point ROS as per HPI above otherwise negative PMHx: Alcohol abuse, hypertension, hyperlipidemia PSHx: Denies Allergies: NKDA Family Hx: Denies familial history of cancer Social History: Tobacco use ~30 year pack smoking history; former drinker reportedly quit 04/15/17; denies any illicit drug use Past Patient History - Infectious Disease Hx of Infectious Diseases: None - Tetanus Immunizations Tetanus Immunization: Unknown - Past Medical History & Family History Past Medical History?: Yes Past Family History: Reviewed and not pertinent - Past Social History Smoking Status: Light Smoker < 10 Cigarettes Daily - CARDIAC Hx Hypertension: Yes - PULMONARY Hx Chronic Obstructive Pulmonary Disease (COPD): Yes - NEUROLOGICAL Hx Neurological Disorder: No - HEENT Hx HEENT Problems: No - RENAL Hx Chronic Kidney Disease: No - ENDOCRINE/METABOLIC Hx Endocrine Disorders: No - HEMATOLOGICAL/ONCOLOGICAL Hx Blood Disorders: No - INTEGUMENTARY Hx Dermatological Problems: No - MUSCULOSKELETAL/RHEUMATOLOGICAL Hx Musculoskeletal Disorders: No - GASTROINTESTINAL Hx Gastrointestinal Disorders: No - GENITOURINARY/GYNECOLOGICAL Hx Genitourinary Disorders: No - PSYCHIATRIC Hx Psychophysiologic Disorder: No Hx Substance Use: No - SURGICAL HISTORY Hx Surgeries: No - ANESTHESIA Hx Anesthesia: No Meds Allergies/Adverse Reactions: Allergies Allergy/AdvReac Type Severity Reaction Status Date / Time No Known Allergies Allergy Verified 06/05/17 11:56 - Medications Medications: Current Medications Albuterol/Ipratropium (Duoneb 3 Mg/0.5 Mg (3 Ml) Ud) 3 ml IH Q2H PRN PRN Reason: Shortness of Breath Atorvastatin Calcium (Lipitor) 20 mg PO DIN [facility] Last Admin: 06/08/17 18:05 Dose: 20 mg Benzocaine/Menthol (Cepacol Sore Throat) 1 aneudy MT Q2H PRN PRN Reason: Sore Throat Last Admin: 06/10/17 14:49 Dose: 1 aneudy Benzonatate (Tessalon Perles) 100 mg PO TID [facility] Last Admin: 06/12/17 18:21 Dose: Not Given Folic Acid (Folic Acid) 1 mg PO DAILY [facility] Last Admin: 06/12/17 11:47 Dose: 1 mg Guaifenesin/Dextromethorphan (Robitussin Dm) 5 ml PO Q4H PRN PRN Reason: Cough Heparin Sodium (Porcine) (Heparin) 5,000 units SC Q12 [facility] PRN Reason: Protocol Last Admin: 06/12/17 21:57 Dose: Not Given Piperacillin Sod/Tazobactam Sod (Zosyn 3.375 In Ns 100ml) 100 mls @ 200 mls/hr IVPB Q6 [facility] PRN Reason: Protocol Stop: 07/04/17 12:01 Last Admin: 06/12/17 06:13 Dose: 200 mls/hr Ibuprofen (Motrin Tab) 400 mg PO Q6H PRN PRN Reason: Pain, moderate (4-7) Multivitamins/Minerals (Therapeutic-M Tab) 1 tab PO 0800 [facility] Last Admin: 06/12/17 11:47 Dose: Not Given Nicotine (Nicoderm Cq) 1 patch TD DAILY [facility] Last Admin: 06/12/17 11:48 Dose: Not Given Pantoprazole Sodium (Protonix Ec Tab) 40 mg PO 0600 [facility] Last Admin: 06/12/17 06:09 Dose: 40 mg Prednisone (Prednisone Tab) 20 mg PO DAILY [facility] Last Admin: 06/12/17 11:47 Dose: Not Given Thiamine HCl (Vitamin B1 Tab) 100 mg PO DAILY [facility] Last Admin: 06/12/17 11:47 Dose: Not Given Physical Exam - Constitutional Appears: No Acute Distress - Head Exam Head Exam: ATRAUMATIC, NORMAL INSPECTION, NORMOCEPHALIC - Eye Exam Eye Exam: EOMI Pupil Exam: PERRL - ENT Exam ENT Exam: Mucous Membranes Moist - Neck Exam Neck exam: Positive for: Normal Inspection - Respiratory Exam Respiratory Exam: Decreased Breath Sounds. absent: Rales, Rhonchi, Wheezes - Cardiovascular Exam Cardiovascular Exam: +S1, +S2. absent: Gallop, Rubs - GI/Abdominal Exam GI & Abdominal Exam: Soft. absent: Diminished Bowel Sounds, Distended, Firm, Guarding, Rebound, Rigid, Tenderness - Extremities Exam Extremities exam: Positive for: normal inspection. Negative for: pedal edema - Neurological Exam Neurological exam: Alert, CN II-XII Intact, Oriented x3 - Psychiatric Exam Psychiatric exam: Normal Affect, Normal Mood - Skin Skin Exam: Dry, Intact, Normal Color, Warm Results - Vital Signs Recent Vital Signs: Last Vital Signs Temp 97.9 F 06/13/17 00:05 Pulse 97 H 06/13/17 00:05 Resp 20 06/13/17 00:05 BP 147/95 H 06/13/17 00:05 Pulse Ox 95 06/13/17 00:05 - Labs Result Diagrams: 06/13/17 08:00 06/13/17 08:00 Labs: Laboratory Results - last 24 hr 06/12/17 06/12/17 07:45 07:45 WBC 10.8 RBC 3.65 Hgb 11.0 L Hct 33.9 L MCV 92.9 MCH 30.1 MCHC 32.4 RDW 15.1 H Plt Count 523 H MPV 8.1 Gran % 70.5 H Lymph % (Auto) 22.7 [place] % (Auto) 5.7 Eos % (Auto) 0.5 L Baso % (Auto) 0.6 Gran # 7.59 H Lymph # (Auto) 2.4 [place] # (Auto) 0.6 Eos # (Auto) 0.1 Baso # (Auto) 0.06 Sodium 139 Potassium 3.6 Chloride 104 Carbon Dioxide 27 Anion Gap 12 BUN 9 Creatinine 0.6 L Est GFR ( Amer) > 60 Est GFR (Non-Af Amer) > 60 Random Glucose 91 Calcium 8.6 Total Bilirubin 0.2 AST 342 H ALT 382 H Alkaline Phosphatase 93 Total Protein 6.6 Albumin 2.9 L Globulin 3.7 Albumin/Globulin Ratio 0.8 L Assessment & Plan - Assessment and Plan (Free Text) Plan: 57yo male with history of alcohol abuse, hypertension and hyperlipidemia admitted for evaluation and treatment of bilateral lung masses/infiltrates. GI consulted for evaluation of elevated LFT's. 1. Transaminitis 2. Bilateral lung mass/infiltrates 3. Hx of alcohol abuse Plan: -Triple phase liver CT pending to rule out hepatic mass -Autoimmune workup ordered and is pending -GGT, Hepatitis b surface antibody, hepatitis b core, HSV and CMV studies pending -Alcohol level <10 -Hepatitis panel negative -Abdominal US revealed normal echogenicity of liver parenchyma, no apparent masses or intrahepatic bile duct dilatation; no gallstones, CBD measures 4.8mm -Zosyn, lipitor and tylenol presently on hold <Karlos Salamanca - Last Filed: 06/13/17 11:57> Meds - Medications Medications: Current Medications Albuterol/Ipratropium (Duoneb 3 Mg/0.5 Mg (3 Ml) Ud) 3 ml IH Q2H PRN PRN Reason: Shortness of Breath Atorvastatin Calcium (Lipitor) 20 mg PO DIN [facility] Last Admin: 06/08/17 18:05 Dose: 20 mg Benzocaine/Menthol (Cepacol Sore Throat) 1 aneudy MT Q2H PRN PRN Reason: Sore Throat Last Admin: 06/10/17 14:49 Dose: 1 aneudy Benzonatate (Tessalon Perles) 100 mg PO TID [facility] Last Admin: 06/12/17 18:21 Dose: Not Given Folic Acid (Folic Acid) 1 mg PO DAILY [facility] Last Admin: 06/12/17 11:47 Dose: 1 mg Guaifenesin/Dextromethorphan (Robitussin Dm) 5 ml PO Q4H PRN PRN Reason: Cough Heparin Sodium (Porcine) (Heparin) 5,000 units SC Q12 [facility] PRN Reason: Protocol Last Admin: 06/12/17 21:57 Dose: Not Given Aztreonam (Azactam 2 Gm) 100 mls @ 100 mls/hr IVPB Q8 [facility] PRN Reason: Protocol Stop: 07/08/17 14:01 Metronidazole (Flagyl) 500 mg in 100 mls @ 100 mls/hr IVPB Q8 [facility] PRN Reason: Protocol Ibuprofen (Motrin Tab) 400 mg PO Q6H PRN PRN Reason: Pain, moderate (4-7) Multivitamins/Minerals (Therapeutic-M Tab) 1 tab PO 0800 [facility] Last Admin: 06/12/17 11:47 Dose: Not Given Nicotine (Nicoderm Cq) 1 patch TD DAILY [facility] Last Admin: 06/12/17 11:48 Dose: Not Given Pantoprazole Sodium (Protonix Ec Tab) 40 mg PO 0600 [facility] Last Admin: 06/13/17 06:58 Dose: Not Given Prednisone (Prednisone Tab) 20 mg PO DAILY [facility] Last Admin: 06/12/17 11:47 Dose: Not Given Thiamine HCl (Vitamin B1 Tab) 100 mg PO DAILY [facility] Last Admin: 06/12/17 11:47 Dose: Not Given Results - Vital Signs Recent Vital Signs: Last Vital Signs Temp 98.3 F 06/13/17 06:00 Pulse 95 H 06/13/17 06:00 Resp 18 06/13/17 06:00 BP 129/71 06/13/17 06:00 Pulse Ox 93 L 06/13/17 06:00 - Labs Result Diagrams: 06/13/17 08:00 06/13/17 08:00 Labs: Laboratory Results - last 24 hr 06/13/17 06/13/17 06/13/17 08:00 08:00 08:45 WBC 10.9 RBC 3.67 Hgb 11.0 L Hct 34.1 L MCV 92.9 MCH 30.0 MCHC 32.3 RDW 15.0 H Plt Count 517 H MPV 8.1 Gran % 75.5 H Lymph % (Auto) 19.3 L [place] % (Auto) 3.8 Eos % (Auto) 1.0 L Baso % (Auto) 0.4 Gran # 8.20 H Lymph # (Auto) 2.1 [place] # (Auto) 0.4 Eos # (Auto) 0.1 Baso # (Auto) 0.04 Sodium 138 Potassium 3.9 Chloride 103 Carbon Dioxide 23 Anion Gap 16 BUN 7 Creatinine 0.6 L Est GFR ( Amer) > 60 Est GFR (Non-Af Amer) > 60 Random Glucose 105 Calcium 8.7 Total Bilirubin 0.2 GGT 122 H AST 112 H D ALT 262 H Alkaline Phosphatase 89 Total Protein 5.9 Albumin 2.6 L Globulin 3.3 Albumin/Globulin Ratio 0.8 L Attending/Attestation - Attestation I have personally seen and examined this patient.: Yes I have fully participated in the care of the patient.: Yes I have reviewed all pertinent clinical information: Yes Notes (Text): 06/13/17 11:54 57 year old male with h/o etoh abuse admitted with cavitary lung lesion, also with elevated LFTs. 1. Elevated LFTs 2. Hepatomegaly Plan: -has baseline h/o etoh abuse which may predispose to liver injury -statin and zosyn started around the time he had increase in transaminases -would dc those and monitor lfts -triple phase ct reviewed, large liver, small cysts, no other lesions -ddx may also include that this could be related to infectious process which has affected his lungs -eval for viral hepatitis negative -send cmv, hsv -await autoimmune serologies -iron studies neg for signs of hemochromatosis -consider liver biopsy if it continues to increase despite stopping medications
[2017-06-13] MEDS: Pantoprazole 40 mg EC Tab PO SCH (06:58)
[2017-06-13 08:18] LABS: BASO # 0.04 K/mm3 (0.0-2.0); BASO % 0.4 % (0.0-3.0); EOS # 0.1 (0.0-0.7); GRAN # 8.2 (1.4-6.5); GRAN % 75.5 % (50.0-68.0); LYMPH # 2.1 (1.2-3.4); LYMPH % 19.3 % (22.0-35.0); MEAN CELL VOLUME 92.9 fl (80.0-105.0); MEAN CORPUSCULAR HGB CONC 32.3 g/dl (31.0-37.0); MEAN PLATELET VOLUME 8.1 fl (7.0-11.0); MONO # 0.4 (0.1-0.6); MONO % 3.8 % (1.0-6.0); RBC 3.67 10^6/uL (3.5-6.1); WHITE BLOOD COUNT 10.9 10^3/ul (4.5-11.0)
[2017-06-13 08:49] LABS: ALB/GLOB RATIO 0.8 (1.1-1.8); ALBUMIN 2.6 g/dL (3.0-4.8); ALT/SGPT 262 U/L (7-56); AST/SGOT 112 U/L (17-59); BLOOD UREA NITROGEN 7 mg/dL (7-21); CALCIUM 8.7 mg/dL (8.4-10.5); GFR AFRICAN-AMERICAN > 60; GFR NON-AFRICAN AMERICAN > 60
[2017-06-13 09:34] LABS: GAMMA GLUTAMYL TRANSPEPTIDASE 122 U/L (8-78)
--- NOTE | 2017-06-13 09:57 | CT ---
PROCEDURE: CT Abdomen with and without intravenous contrast HISTORY: r/o hepatic mass COMPARISON: Abdomen ultrasound examination 06/10/2017. TECHNIQUE: Axial images of the abdomen from lung bases to iliac crest with and without intravenous contrast enhancement. Multiple time dependent have been acquired post contrast administration through the liver. Coronal and sagittal reformats generated. Oral contrast not administered. Intravenous contrast Dose: Omnipaque 350, 150 cc Radiation dose: Total exam DLP = 1015.93 mGy-cm. This CT exam was performed using one or more of the following dose reduction techniques: Automated exposure control, adjustment of the mA and/or kV according to patient size, and/or use of iterative reconstruction technique. FINDINGS: LOWER THORAX: There is partial capture of the inferior margins of the right medial basilar empyema with trace gas versus lung abscess. Trace pericardial effusion noted anteriorly. LIVER: Preliminary unenhanced images through the liver are remarkable only for 1 are 2 tiny low sub cm lucencies near the dome at the left lobe which too small to characterize but do not appear to enhance and may represent tiny cysts. A 3rd similar focus is seen at the inferior most portion of the right lobe liver. The liver is again seen enlarged. No intrahepatic biliary dilatation is identified. GALLBLADDER AND BILE DUCTS: Unremarkable. PANCREAS: Unremarkable. No gross lesion or ductal dilatation. SPLEEN: Unremarkable. ADRENALS: Unremarkable. No mass. KIDNEYS AND URETERS: Unremarkable. No hydronephrosis. No solid mass. VASCULATURE: The abdominal aorta appears ectatic and atherosclerotic without aneurysmal dilatation. BOWEL: Visualized bowel is limited evaluation due lack of oral contrast but appears unremarkable as imaged. PERITONEUM: Unremarkable. No free fluid. No free air. LYMPH NODES: Unremarkable. No enlarged lymph nodes. BONES: No acute fracture. OTHER FINDINGS: None. IMPRESSION: Hepatomegaly again evident with 3 tiny lucencies seen in the liver too small to characterize but likely representing tiny cysts. All are well under 1 cm size in a poorly characterized. The hepatic parenchyma is otherwise unremarkable and its enhancement appearance as well as preliminary density. No evidence to suggest biliary tree dilatation including intra and extrahepatic ducts.
--- NOTE | 2017-06-13 11:57 | CP.PCM.PN ---
Subjective - Date & Time of Evaluation Date of Evaluation: 06/13/17 Time of Evaluation: 08:55 - Subjective Subjective: Patient refusing PICC line, no fevers. Objective - Vital Signs/Intake and Output Vital Signs (last 24 hours): Temp Pulse Resp BP Pulse Ox 98.3 F 95 H 18 129/71 93 L 06/13/17 06:00 06/13/17 06:00 06/13/17 06:00 06/13/17 06:00 06/13/17 06:00 Intake and Output: 06/13/17 06/13/17 06:59 18:59 Intake Total 240 Balance 240 - Medications Medications: Current Medications Albuterol/Ipratropium (Duoneb 3 Mg/0.5 Mg (3 Ml) Ud) 3 ml IH Q2H PRN PRN Reason: Shortness of Breath Atorvastatin Calcium (Lipitor) 20 mg PO DIN [facility] Last Admin: 06/08/17 18:05 Dose: 20 mg Benzocaine/Menthol (Cepacol Sore Throat) 1 aneudy MT Q2H PRN PRN Reason: Sore Throat Last Admin: 06/10/17 14:49 Dose: 1 aneudy Benzonatate (Tessalon Perles) 100 mg PO TID [facility] Last Admin: 06/12/17 18:21 Dose: Not Given Folic Acid (Folic Acid) 1 mg PO DAILY [facility] Last Admin: 06/12/17 11:47 Dose: 1 mg Guaifenesin/Dextromethorphan (Robitussin Dm) 5 ml PO Q4H PRN PRN Reason: Cough Heparin Sodium (Porcine) (Heparin) 5,000 units SC Q12 [facility] PRN Reason: Protocol Last Admin: 06/12/17 21:57 Dose: Not Given Aztreonam (Azactam 2 Gm) 100 mls @ 100 mls/hr IVPB Q8 [facility] PRN Reason: Protocol Stop: 07/08/17 14:01 Metronidazole (Flagyl) 500 mg in 100 mls @ 100 mls/hr IVPB Q8 [facility] PRN Reason: Protocol Ibuprofen (Motrin Tab) 400 mg PO Q6H PRN PRN Reason: Pain, moderate (4-7) Multivitamins/Minerals (Therapeutic-M Tab) 1 tab PO 0800 [facility] Last Admin: 06/12/17 11:47 Dose: Not Given Nicotine (Nicoderm Cq) 1 patch TD DAILY [facility] Last Admin: 06/12/17 11:48 Dose: Not Given Pantoprazole Sodium (Protonix Ec Tab) 40 mg PO 0600 [facility] Last Admin: 06/13/17 06:58 Dose: Not Given Prednisone (Prednisone Tab) 20 mg PO DAILY [facility] Last Admin: 06/12/17 11:47 Dose: Not Given Thiamine HCl (Vitamin B1 Tab) 100 mg PO DAILY [facility] Last Admin: 06/12/17 11:47 Dose: Not Given - Labs Labs: 06/13/17 08:00 06/13/17 08:00 APTT 30.8 Seconds (25.1-36.5) 06/06/17 08:00 - Constitutional Appears: Chronically Ill - Head Exam Head Exam: NORMAL INSPECTION - Respiratory Exam Respiratory Exam: Decreased Breath Sounds - Cardiovascular Exam Cardiovascular Exam: +S1, +S2 - GI/Abdominal Exam GI & Abdominal Exam: Soft. absent: Tenderness Assessment and Plan - Assessment and Plan (Free Text) Plan: Assessment severe sepsis probable due to aspiration pneumonia with necrosis and lung abscess and cavitation formation, R/O malignancy, sputum AFB negative transaminitis, etiology to be determined, R/O drug-induced history of alcohol abuse COPD HTN dyslipidemia Plan continue Vancomycin and changed Zosyn to Azactam and Flagyl and will probably need at least 4 weeks of antibiotics - will hold Zosyn for now because of the increased AST and ALT, although the usual picture is one of cholestasis which is not seen here - will continue to trend AST, ALT HIV test is non-reactive sputum AFB and Quantiferon test is negative
[2017-06-13 12:48] LABS: HEPATITIS B CORE AB NEGATIVE (NEGATIVE)
--- NOTE | 2017-06-13 12:56 | CP.PCM.PN ---
<Kaci Pappas - Last Filed: 06/13/17 13:29> Subjective - Date & Time of Evaluation Date of Evaluation: 06/13/17 Time of Evaluation: 12:49 - Subjective Subjective: Kaci Pappas, PGY1, Medicine Progress Note for Dr Wang: Patient seen and assessed at bedside. No acute events noted overnight. Denies fever, chills, n/v, significant cough, wheezing, sob, abdominal pain, jaundice, leg swelling. Pt refused PICC line insertion today. States that he would only want to go home on PO antibiotics. Discussed with ID (Dr Nichols): pt needs IV antibiotics. Pt states that he needs more time to think about it. Objective - Vital Signs/Intake and Output Vital Signs (last 24 hours): Temp Pulse Resp BP Pulse Ox 98.3 F 95 H 18 129/71 93 L 06/13/17 06:00 06/13/17 06:00 06/13/17 06:00 06/13/17 06:00 06/13/17 06:00 Intake and Output: 06/13/17 06/13/17 06:59 18:59 Intake Total 240 Balance 240 - Medications Medications: Current Medications Albuterol/Ipratropium (Duoneb 3 Mg/0.5 Mg (3 Ml) Ud) 3 ml IH Q2H PRN PRN Reason: Shortness of Breath Atorvastatin Calcium (Lipitor) 20 mg PO DIN [facility] Last Admin: 06/08/17 18:05 Dose: 20 mg Benzocaine/Menthol (Cepacol Sore Throat) 1 aneudy MT Q2H PRN PRN Reason: Sore Throat Last Admin: 06/10/17 14:49 Dose: 1 aneudy Benzonatate (Tessalon Perles) 100 mg PO TID [facility] Last Admin: 06/12/17 18:21 Dose: Not Given Folic Acid (Folic Acid) 1 mg PO DAILY [facility] Last Admin: 06/12/17 11:47 Dose: 1 mg Guaifenesin/Dextromethorphan (Robitussin Dm) 5 ml PO Q4H PRN PRN Reason: Cough Heparin Sodium (Porcine) (Heparin) 5,000 units SC Q12 [facility] PRN Reason: Protocol Last Admin: 06/12/17 21:57 Dose: Not Given Aztreonam (Azactam 2 Gm) 100 mls @ 100 mls/hr IVPB Q8 [facility] PRN Reason: Protocol Stop: 07/08/17 14:01 Metronidazole (Flagyl) 500 mg in 100 mls @ 100 mls/hr IVPB Q8 [facility] PRN Reason: Protocol Ibuprofen (Motrin Tab) 400 mg PO Q6H PRN PRN Reason: Pain, moderate (4-7) Multivitamins/Minerals (Therapeutic-M Tab) 1 tab PO 0800 [facility] Last Admin: 06/12/17 11:47 Dose: Not Given Nicotine (Nicoderm Cq) 1 patch TD DAILY [facility] Last Admin: 06/12/17 11:48 Dose: Not Given Pantoprazole Sodium (Protonix Ec Tab) 40 mg PO 0600 [facility] Last Admin: 06/13/17 06:58 Dose: Not Given Prednisone (Prednisone Tab) 20 mg PO DAILY [facility] Last Admin: 06/12/17 11:47 Dose: Not Given Thiamine HCl (Vitamin B1 Tab) 100 mg PO DAILY [facility] Last Admin: 06/12/17 11:47 Dose: Not Given - Labs Labs: 06/13/17 08:00 06/13/17 08:00 APTT 30.8 Seconds (25.1-36.5) 06/06/17 08:00 - Additional Findings Additional findings: - Constitutional Appears: Non-toxic, No Acute Distress - Head Exam Head Exam: ATRAUMATIC, NORMOCEPHALIC - Eye Exam Eye Exam: EOMI, PERRL. absent: Conjunctival injection, Nystagmus, Scleral icterus Pupil Exam: NORMAL ACCOMODATION, PERRL. absent: Fixed, Irregular, Unequal - ENT Exam ENT Exam: Mucous Membranes Moist - Neck Exam Neck Exam: Full ROM. absent: Tenderness - Respiratory Exam Respiratory Exam: Decreased Breath Sounds (right upper and lower lobes.), NORMAL BREATHING PATTERN. absent: Accessory Muscle Use, Chest Wall Tenderness, Wheezes, Respiratory Distress, Stridor - Cardiovascular Exam Cardiovascular Exam: RRR, +S1, +S2. absent: Tachycardia, Murmur - GI/Abdominal Exam GI & Abdominal Exam: Soft, Normal Bowel Sounds. absent: Distended, Firm, Guarding, Rigid, Tenderness, Mass, Organomegaly, Rebound - Extremities Exam Extremities Exam: Normal Inspection. absent: Calf Tenderness, Pedal Edema - Back Exam Back Exam: NORMAL INSPECTION - Neurological Exam Neurological Exam: Alert, Awake, Oriented x3 - Psychiatric Exam Psychiatric exam: Normal Affect, Normal Mood - Skin Skin Exam: Dry, Normal Color, Warm Assessment and Plan - Assessment and Plan (Free Text) Assessment: 57 year old male with a past medical history significant for alcohol abuse, HTN and HLD, who presents with dry cough with associated chills and throat irritation for a duration of four to five days. Patient was found to be febrile , tachycardic and with leukocytosis in the ED. A chest x-ray and chest CT were done and showed multiple cavitary and necrotic masses in the right lung and subsegmental left upper lobe infiltrates. Three sputum cultures neg for AFB. Pt on IV antibiotics, Azactam and Flagyl, pt needs IV abx for 4 weeks for the lung abscess. Pt currently refusing the management plan offered, refused PICC today; pt states that he needs more time to think about the PICC line insertion. Pt's elevated LFTS trending down today after discontinuation of Zosyn yesterday: Patient is on Vancomycin and Zosyn D7 per ID. Pt developed rising LFTs, discontinued statin, tylenol since 06/09. Held Zosyn today. Abd US showed normal echogenicity of liver, liver size on upper limit of normal. As per pulm and ID, will treat pt with IV abx for 4 weeks. Pt would like to go home, (refuses TCU/ rehab currently): 1. Cavitary Lesions of Right Upper/Lower Lobes: -Chest X-Ray showed large superior segment right lower lobe cavitary lesion -Chest CT showed multiple cavitary and necrotic masses the right lower lobe 5.3x7.8 cm. Right upper lobe, more traditional cavitary lesion with large air fluid level in anterior segment, 5.6x4.6cm. Faint subsegmental peripheral infiltrates in left upper lobe. -Previous Chest X-Ray taken on 05/25/16 showed hyperventilation and chronic changes consistent with emphysema and no masses or cavitary lesions -Repeat chest CT: decrease in size of rigth sided lung abscess. communication btw 2 of largest abscesses. decreased size of right pleural effusion. -Three sputum cultures preliminarily negative for AFB and negative quantiferon -C/w IV Vanco. Started on IV Azactam and Flagyl. -Prednisone 20 mg PO daily. -Duonebs Q2 PRN -Continue Tessalon Perles PRN, Robitussin DM PRN and Cepacol PRN -Ibuprofen 400mg PO Q6H PRN for pain control -Pulmonology and ID consulted, all recommendations appreciated 2. Transaminitis -Found to have elevated LFT's on CMP -Hepatitis panel neg -RUQ US shows liver size on upper side of normal, 18.3 cm. normal echogenicity of liver parenchyma. -Holding Lipitor, PRN Tylenol, zosyn -Continue to trend with daily CMP -GI consulted. appreciate recs. 3. History of Alcohol Abuse -Alcohol level <10 on admission -Reports quitting two months ago -Continue Folic acid, Thiamine and MV supplementation 4. History of Tobacco Abuse -Continue Nicotine 21mg/day TD 5. History of HLD -LDL 109, triglycerides 208, cholesterol 148, HDL 11 this admission. -Holding Lipitor in setting of transaminitis. Pt also does not want Lipitor as he wants to bring down the levels per his diet. GI Prophylaxis: Protonix DVT Prophylaxis: Heparin Diet: Heart healthy diet (low fat, low cholesterol) Patient seen and case discussed with attending, Dr. Wang. <Joby Wang - Last Filed: 06/15/17 09:15> Objective - Vital Signs/Intake and Output Vital Signs (last 24 hours): Temp Pulse Resp BP Pulse Ox 97.9 F 100 H 18 145/81 95 06/14/17 07:00 06/14/17 07:00 06/14/17 07:00 06/14/17 07:00 06/14/17 07:00 - Labs Labs: 06/14/17 07:00 06/14/17 07:00 APTT 30.8 Seconds (25.1-36.5) 06/06/17 08:00 Attending/Attestation - Attestation I have personally seen and examined this patient.: Yes I have fully participated in the care of the patient.: Yes I have reviewed all pertinent clinical information, including history, physical exam and plan: Yes Notes (Text): 06/15/17 09:11 Patient was seen and examined with medical staff coordinator. Agreed with assessment and plan. 57 year old male with a past medical history significant for alcohol abuse, HTN and HLD with multiple lung abscess and elevated LFT. Repeat CT chest showed decrease in the size of lung abscess. LFT are coming down, statin and zosyn are discontinued. Case was discussed with ID, Patient will need 4 weeks of treatment for lung abscess, antibiotics has been changed to Invanz and Linezolide.Cultures are negative.Patient will need weekly CBC,CMP and will need repeat CT chest after treatment. Patient will be discharged home and will follow up with PMD and Pulmonary. Issue of compliance with medications and alcohol abuse was discussed in detail. Management plan was discussed in detail with patient. Education was p
[2017-06-13] MEDS: Multivitamin With Minerals Tab PO SCH (13:50)
[2017-06-13] MEDS ORDERED: DiphenhydrAMINE 50 mg/ml Inj IVP STA (13:57)
[2017-06-13] MEDS ORDERED: DiphenhydrAMINE 50 mg/ml Inj ONE (14:04)
[2017-06-13] MEDS: metroNIDAZOLE IV 500 mg/100 ml 500 MG/100 ML BAG IVPB SCH ×2 (15:23→23:19)
[2017-06-13] MEDS: Aztreonam 2 Gm in NS 100mL 100 ML IVPB SCH ×2 (15:23→21:33)
[2017-06-13 20:48] VITALS: O2SAT 95
--- NOTE | 2017-06-14 00:19 | PN ---
DATE: 06/13/2017 REFERRING PHYSICIAN: Dr. Milner. SUBJECTIVE: The patient is lying in the bed at 45 degrees. Sleepy, arousable. Feels better. Decreased cough. Decreased shortness of breath. No nausea. No vomiting. No diarrhea. No leg pain or leg swelling. Status post PICC line for antibiotics. OBJECTIVE: GENERAL: In no acute distress. VITAL SIGNS: Temperature is 98, heart rate is 89, respiratory rate is 18, blood pressure 136/86, and pulse ox 95% on room air. HEENT: Moist mucous membranes. Crowded airway. NECK: Supple. No JVD. LUNGS: Have a scattered rhonchi and few crackles. HEART: S1 and S2. ABDOMEN: Soft and nontender. No organomegaly. EXTREMITIES: No edema. NEUROLOGIC: Awake and alert. Follows simple command. MEDICATIONS: He is on Azactam 2 gm IV q. 8 hours, Benadryl 25 mg q. 8 hours, Cepacol lozenges q. 2 hours p.r.n., DuoNeb q. 2 hours p.r.n., Flagyl 500 mg q. 8 hours, folic acid 1 mg daily, heparin 5000 units subcu q. 12 hours, Lipitor 200 mg daily, Motrin 400 mg q. 6 hours p.r.n., Nicoderm patch daily, prednisone 10 mg daily, Protonix 40 mg daily, Robitussin 5 mL q. 4 hours p.r.n., Tessalon Perles 100 mg 3 times a day, multivitamin daily, and vitamin B 100 mg daily. LABORATORY DATA: Shows hemoglobin 11.0, hematocrit 34.1, WBC 10.9, and platelet count is 517. Sodium 138, potassium 2.9, chloride 103, bicarbonate 23, BUN 7, creatinine 0.6, glucose 105, calcium 8.7. GGT is 122. AST 112, ALT 262, albumin is 2.6. IMPRESSION AND PLAN: Aspiration pneumonia, multiple cavitary lesions - probably abscesses, chronic obstructive lung disease, alcohol abuse, hypertension, hyperlipidemia. From pulmonary point of view, he is doing well. We will decrease prednisone to 10 mg daily and taper off in the next three to four days. Antibiotics as per Infectious Disease. Bronchodilator. Urged the patient to stop smoking. Need a followup CT in few weeks to assure the stability of cavitary lesion. Thank you and we will follow with you. Joby Sheppard MD
[2017-06-14] MEDS: Aztreonam 2 Gm in NS 100mL 100 ML IVPB SCH ×2 (05:49→13:44)
[2017-06-14] MEDS: Pantoprazole 40 mg EC Tab PO SCH (05:50)
--- NOTE | 2017-06-14 06:21 | CP.PCM.PN ---
<Gama Bond - Last Filed: 06/14/17 12:52> Subjective - Date & Time of Evaluation Date of Evaluation: 06/14/17 Time of Evaluation: 06:16 - Subjective Subjective: GI Progress note - Mati Bond PGY2 Patient seen and examined at bedside this morning. No acute overnight events or new complaints. Tolerating diet without issue. Denies abdominal pain, nausea, vomiting. 12point ROS as per above otherwise negative Objective - Vital Signs/Intake and Output Vital Signs (last 24 hours): Temp Pulse Resp BP Pulse Ox 97.2 F L 89 20 136/86 95 06/13/17 16:00 06/13/17 16:00 06/13/17 16:00 06/13/17 16:00 06/13/17 16:00 Intake and Output: 06/13/17 06/14/17 18:59 06:59 Intake Total 180 Balance 180 - Medications Medications: Current Medications Albuterol/Ipratropium (Duoneb 3 Mg/0.5 Mg (3 Ml) Ud) 3 ml IH Q2H PRN PRN Reason: Shortness of Breath Atorvastatin Calcium (Lipitor) 20 mg PO DIN [facility] Last Admin: 06/08/17 18:05 Dose: 20 mg Benzocaine/Menthol (Cepacol Sore Throat) 1 aneudy MT Q2H PRN PRN Reason: Sore Throat Last Admin: 06/10/17 14:49 Dose: 1 aneudy Benzonatate (Tessalon Perles) 100 mg PO TID [facility] Last Admin: 06/13/17 18:21 Dose: Not Given Diphenhydramine HCl (Benadryl) 25 mg PO Q8H [facility] Last Admin: 06/13/17 18:21 Dose: Not Given Folic Acid (Folic Acid) 1 mg PO DAILY [facility] Last Admin: 06/13/17 10:00 Dose: Not Given Guaifenesin/Dextromethorphan (Robitussin Dm) 5 ml PO Q4H PRN PRN Reason: Cough Aztreonam (Azactam 2 Gm) 100 mls @ 100 mls/hr IVPB Q8 [facility] PRN Reason: Protocol Stop: 07/08/17 14:01 Last Admin: 06/14/17 05:49 Dose: 100 mls/hr Metronidazole (Flagyl) 500 mg in 100 mls @ 100 mls/hr IVPB Q8 [facility] PRN Reason: Protocol Last Admin: 06/13/17 23:19 Dose: 100 mls/hr Ibuprofen (Motrin Tab) 400 mg PO Q6H PRN PRN Reason: Pain, moderate (4-7) Multivitamins/Minerals (Therapeutic-M Tab) 1 tab PO 0800 [facility] Last Admin: 06/13/17 13:50 Dose: Not Given Nicotine (Nicoderm Cq) 1 patch TD DAILY [facility] Last Admin: 06/13/17 13:39 Dose: Not Given Pantoprazole Sodium (Protonix Ec Tab) 40 mg PO 0600 [facility] Last Admin: 06/14/17 05:50 Dose: Not Given Prednisone (Prednisone Tab) 10 mg PO DAILY [facility] Thiamine HCl (Vitamin B1 Tab) 100 mg PO DAILY [facility] Last Admin: 06/13/17 13:51 Dose: Not Given - Labs Labs: 06/13/17 08:00 06/13/17 08:00 APTT 30.8 Seconds (25.1-36.5) 06/06/17 08:00 - Constitutional Appears: No Acute Distress - Head Exam Head Exam: ATRAUMATIC, NORMOCEPHALIC - Eye Exam Eye Exam: EOMI Pupil Exam: PERRL - ENT Exam ENT Exam: Mucous Membranes Moist - Respiratory Exam Respiratory Exam: Decreased Breath Sounds. absent: Rales, Rhonchi, Wheezes - Cardiovascular Exam Cardiovascular Exam: +S1, +S2. absent: Gallop, Rubs - GI/Abdominal Exam GI & Abdominal Exam: Soft. absent: Distended, Firm, Guarding, Rigid, Tenderness , Rebound - Neurological Exam Neurological Exam: Alert, Awake, CN II-XII Intact, Oriented x3 - Psychiatric Exam Psychiatric exam: Normal Affect, Normal Mood - Skin Skin Exam: Dry, Intact, Normal Color, Warm Assessment and Plan - Assessment and Plan (Free Text) Plan: 57yo male with history of alcohol abuse, hypertension and hyperlipidemia admitted for evaluation and treatment of bilateral lung masses/infiltrates. GI consulted for evaluation of elevated LFT's. 1. Transaminitis 2. Bilateral lung mass/infiltrates 3. Hx of alcohol abuse Plan: -LFT's downtrending likely secondary to drug-induced injury which has since been discontinued however autoimmune studies pending -Triple phase liver CT reviewed; revealed 3 sub-cm non-enhancing lucencies too small to characterize, likely representing cysts -IGG within normal limits -GGT elevated -Hepatitis b surface antibody negative -Autoimmune and HSV and CMV studies pending -Alcohol level <10 -Hepatitis panel negative -Abdominal US revealed normal echogenicity of liver parenchyma, no apparent masses or intrahepatic bile duct dilatation; no gallstones, CBD measures 4.8mm -Zosyn, lipitor and tylenol presently on hold -No further GI intervention planned at this time, we will sign off this case. Please reconsult as deemed necessary. Thank you for this consult. Patient seen and case discussed/reviewed with attending, Dr. Contreras <Sridhar Contreras - Last Filed: 06/14/17 13:11> Objective - Vital Signs/Intake and Output Vital Signs (last 24 hours): Temp Pulse Resp BP Pulse Ox 97.9 F 100 H 18 145/81 95 06/14/17 07:00 06/14/17 07:00 06/14/17 07:00 06/14/17 07:00 06/14/17 07:00 Intake and Output: 06/14/17 06/14/17 06:59 18:59 Intake Total 180 Balance 180 - Medications Medications: Current Medications Albuterol/Ipratropium (Duoneb 3 Mg/0.5 Mg (3 Ml) Ud) 3 ml IH Q2H PRN PRN Reason: Shortness of Breath Atorvastatin Calcium (Lipitor) 20 mg PO DIN [facility] Last Admin: 06/08/17 18:05 Dose: 20 mg Benzocaine/Menthol (Cepacol Sore Throat) 1 aneudy MT Q2H PRN PRN Reason: Sore Throat Last Admin: 06/10/17 14:49 Dose: 1 aneudy Benzonatate (Tessalon Perles) 100 mg PO TID [facility] Last Admin: 06/14/17 09:03 Dose: Not Given Diphenhydramine HCl (Benadryl) 25 mg PO Q8H [facility] Last Admin: 06/14/17 11:00 Dose: Not Given Folic Acid (Folic Acid) 1 mg PO DAILY [facility] Last Admin: 06/14/17 09:03 Dose: Not Given Guaifenesin/Dextromethorphan (Robitussin Dm) 5 ml PO Q4H PRN PRN Reason: Cough Aztreonam (Azactam 2 Gm) 100 mls @ 100 mls/hr IVPB Q8 [facility] PRN Reason: Protocol Stop: 07/08/17 14:01 Last Admin: 06/14/17 05:49 Dose: 100 mls/hr Metronidazole (Flagyl) 500 mg in 100 mls @ 100 mls/hr IVPB Q8 [facility] PRN Reason: Protocol Last Admin: 06/14/17 07:26 Dose: 100 mls/hr Ibuprofen (Motrin Tab) 400 mg PO Q6H PRN PRN Reason: Pain, moderate (4-7) Multivitamins/Minerals (Therapeutic-M Tab) 1 tab PO 0800 [facility] Last Admin: 06/14/17 09:03 Dose: Not Given Nicotine (Nicoderm Cq) 1 patch TD DAILY [facility] Last Admin: 06/14/17 09:03 Dose: Not Given Pantoprazole Sodium (Protonix Ec Tab) 40 mg PO 0600 [facility] Last Admin: 06/14/17 05:50 Dose: Not Given Prednisone (Prednisone Tab) 10 mg PO DAILY [facility] Last Admin: 06/14/17 09:03 Dose: Not Given Thiamine HCl (Vitamin B1 Tab) 100 mg PO DAILY [facility] Last Admin: 06/14/17 09:03 Dose: Not Given - Labs Labs: 06/14/17 07:00 06/14/17 07:00 APTT 30.8 Seconds (25.1-36.5) 06/06/17 08:00 Attending/Attestation - Attestation I have personally seen and examined this patient.: Yes I have fully participated in the care of the patient.: Yes I have reviewed all pertinent clinical information, including history, physical exam and plan: Yes Notes (Text): 06/14/17 13:08 I have seen and examined patient with GI fellow and medical health researcher. No acute events overnight, he is seen at bedside eating lunch, appears quite comfortable. He denies abdominal pain, nausea, vomiting. HTN Hyperlipidemia History of ETOH abuse Pneumonia Transaminitis, likely secondary to DILI - Low sodium diet as tolerated - Continue with antibiotic therapy as per ID - LFTs trending down, continue to monitor. Awaiting autoimmune panel results. - Liver CT shows no focal mass lesions, viral hepatitis panel negative - No further planned GI intervention, suggest additional outpatient follow up. Will sign off case, please reconsult as necessary, thank you.
[2017-06-14 07:12] LABS: BASO # 0.03 K/mm3 (0.0-2.0); BASO % 0.3 % (0.0-3.0); EOS # 0.1 (0.0-0.7); EOS % 1.1 % (1.5-5.0); GRAN # 6.64 (1.4-6.5); GRAN % 73.4 % (50.0-68.0); HEMOGLOBIN 10.3 g/dL (14.0-18.0); LYMPH # 1.9 (1.2-3.4); MEAN CELL VOLUME 93.3 fl (80.0-105.0); MEAN CORPUSCULAR HEMOGLOBIN 30.1 pg (25.0-35.0); MEAN CORPUSCULAR HGB CONC 32.3 g/dl (31.0-37.0); MEAN PLATELET VOLUME 7.9 fl (7.0-11.0); MONO # 0.4 (0.1-0.6); MONO % 4.2 % (1.0-6.0); RBC 3.42 10^6/uL (3.5-6.1); RED CELL DISTRIBUTION WIDTH 15.1 % (11.5-14.5); WHITE BLOOD COUNT 9.1 10^3/ul (4.5-11.0)
[2017-06-14] MEDS: metroNIDAZOLE IV 500 mg/100 ml 500 MG/100 ML BAG IVPB SCH ×2 (07:26→13:45)
[2017-06-14 07:32] LABS: ALB/GLOB RATIO 0.8 (1.1-1.8); ALBUMIN 2.7 g/dL (3.0-4.8); ALT/SGPT 166 U/L (7-56); AST/SGOT 51 U/L (17-59); BLOOD UREA NITROGEN 7 mg/dL (7-21); CALCIUM 8.1 mg/dL (8.4-10.5); GFR AFRICAN-AMERICAN > 60; GFR NON-AFRICAN AMERICAN > 60
[2017-06-14] MEDS: Multivitamin With Minerals Tab PO SCH (09:03)
[2017-06-14 09:10] VITALS: BP 145/81; PULSE 100; RESP 18; TEMP 97.9
--- NOTE | 2017-06-14 13:32 | CP.PCM.PN ---
Subjective - Date & Time of Evaluation Date of Evaluation: 06/14/17 Time of Evaluation: 08:35 - Subjective Subjective: No fevers, occasional cough, no diarrhea, wants to go home. Objective - Vital Signs/Intake and Output Vital Signs (last 24 hours): Temp Pulse Resp BP Pulse Ox 97.9 F 100 H 18 145/81 95 06/14/17 07:00 06/14/17 07:00 06/14/17 07:00 06/14/17 07:00 06/14/17 07:00 Intake and Output: 06/14/17 06/14/17 06:59 18:59 Intake Total 180 Balance 180 - Medications Medications: Current Medications Albuterol/Ipratropium (Duoneb 3 Mg/0.5 Mg (3 Ml) Ud) 3 ml IH Q2H PRN PRN Reason: Shortness of Breath Atorvastatin Calcium (Lipitor) 20 mg PO DIN [facility] Last Admin: 06/08/17 18:05 Dose: 20 mg Benzocaine/Menthol (Cepacol Sore Throat) 1 aneudy MT Q2H PRN PRN Reason: Sore Throat Last Admin: 06/10/17 14:49 Dose: 1 aneudy Benzonatate (Tessalon Perles) 100 mg PO TID [facility] Last Admin: 06/14/17 09:03 Dose: Not Given Diphenhydramine HCl (Benadryl) 25 mg PO Q8H [facility] Last Admin: 06/13/17 18:21 Dose: Not Given Folic Acid (Folic Acid) 1 mg PO DAILY [facility] Last Admin: 06/14/17 09:03 Dose: Not Given Guaifenesin/Dextromethorphan (Robitussin Dm) 5 ml PO Q4H PRN PRN Reason: Cough Aztreonam (Azactam 2 Gm) 100 mls @ 100 mls/hr IVPB Q8 [facility] PRN Reason: Protocol Stop: 07/08/17 14:01 Last Admin: 06/14/17 05:49 Dose: 100 mls/hr Metronidazole (Flagyl) 500 mg in 100 mls @ 100 mls/hr IVPB Q8 [facility] PRN Reason: Protocol Last Admin: 06/14/17 07:26 Dose: 100 mls/hr Ibuprofen (Motrin Tab) 400 mg PO Q6H PRN PRN Reason: Pain, moderate (4-7) Multivitamins/Minerals (Therapeutic-M Tab) 1 tab PO 0800 [facility] Last Admin: 06/14/17 09:03 Dose: Not Given Nicotine (Nicoderm Cq) 1 patch TD DAILY [facility] Last Admin: 06/14/17 09:03 Dose: Not Given Pantoprazole Sodium (Protonix Ec Tab) 40 mg PO 0600 [facility] Last Admin: 06/14/17 05:50 Dose: Not Given Prednisone (Prednisone Tab) 10 mg PO DAILY [facility] Last Admin: 06/14/17 09:03 Dose: Not Given Thiamine HCl (Vitamin B1 Tab) 100 mg PO DAILY [facility] Last Admin: 06/14/17 09:03 Dose: Not Given - Labs Labs: 06/14/17 07:00 06/14/17 07:00 APTT 30.8 Seconds (25.1-36.5) 06/06/17 08:00 - Constitutional Appears: Chronically Ill - Head Exam Head Exam: NORMAL INSPECTION - Respiratory Exam Respiratory Exam: Decreased Breath Sounds - Cardiovascular Exam Cardiovascular Exam: +S1, +S2 - GI/Abdominal Exam GI & Abdominal Exam: Soft. absent: Tenderness Assessment and Plan - Assessment and Plan (Free Text) Plan: Assessment severe sepsis probable due to aspiration pneumonia with necrosis and lung abscess and cavitation formation, R/O malignancy, sputum AFB negative transaminitis, etiology to be determined, R/O drug-induced, slowly improving history of alcohol abuse COPD HTN dyslipidemia Plan continue Vancomycin and Azactam and Flagyl and will probably need at least 4 weeks of antibiotics - will hold Zosyn for now because of the increased AST and ALT, although the usual picture is one of cholestasis which is not seen here - will continue to trend AST, ALT - patient may be switched to Zyvox and Ertapenem with weekly ESR, CRP, CBC, CMP and close attention to the transaminases - if it keeps going up, Ertapenem should be d/c'ed - discussed with Dr. Wang HIV test is non-reactive sputum AFB and Quantiferon test is negative
--- NOTE | 2017-06-15 09:31 | CP.PCM.DIS ---
<Kaci Pappas - Last Filed: 06/15/17 13:47> Provider - Provider Date of Admission: 06/05/17 15:58 Attending physician: Joby Wang MD Primary care physician: Jessica Crews MD Consults: Kevin Contreras Time Spent in preparation of Discharge (in minutes): 35 Diagnosis - Discharge Diagnosis (1) Transaminitis Status: Acute (2) Cavitating mass in right lower lung lobe Status: Acute (3) Cavitating mass in right upper lung lobe Status: Acute Hospital Course - Lab Results Lab Results: Micro Results 06/06/17 11:00 Other: Please Indicate Mycobacterial Culture - Preliminary 06/06/17 11:00 Sputum Gram Stain - Final 06/06/17 11:00 Sputum Sputum Culture - Final NORMAL ORAL MAGAN 06/07/17 00:30 Other: Please Indicate Mycobacterial Culture - Preliminary 06/07/17 08:32 Other: Please Indicate Mycobacterial Culture - Preliminary 06/06/17 12:40 Naris MRSA Culture (Admit) - Final MRSA NOT DETECTED Most Recent Lab Values WBC 9.1 10^3/ul (4.5-11.0) 06/14/17 07:00 RBC 3.42 10^6/uL (3.5-6.1) L 06/14/17 07:00 Hgb 10.3 g/dL (14.0-18.0) L 06/14/17 07:00 Hct 31.9 % (42.0-52.0) L 06/14/17 07:00 MCV 93.3 fl (80.0-105.0) 06/14/17 07:00 MCH 30.1 pg (25.0-35.0) 06/14/17 07:00 MCHC 32.3 g/dl (31.0-37.0) 06/14/17 07:00 RDW 15.1 % (11.5-14.5) H 06/14/17 07:00 Plt Count 427 10^3/uL (120.0-450.0) 06/14/17 07:00 MPV 7.9 fl (7.0-11.0) 06/14/17 07:00 Gran % 73.4 % (50.0-68.0) H 06/14/17 07:00 Lymph % (Auto) 21.0 % (22.0-35.0) L 06/14/17 07:00 [place] % (Auto) 4.2 % (1.0-6.0) 06/14/17 07:00 Eos % (Auto) 1.1 % (1.5-5.0) L 06/14/17 07:00 Baso % (Auto) 0.3 % (0.0-3.0) 06/14/17 07:00 Gran # 6.64 (1.4-6.5) H 06/14/17 07:00 Lymph # (Auto) 1.9 (1.2-3.4) 06/14/17 07:00 [place] # (Auto) 0.4 (0.1-0.6) 06/14/17 07:00 Eos # (Auto) 0.1 (0.0-0.7) 06/14/17 07:00 Baso # (Auto) 0.03 K/mm3 (0.0-2.0) 06/14/17 07:00 Neutrophils % (Manual) 99 % (50.0-70.0) H 06/07/17 07:00 Lymphocytes % (Manual) TEST NOT PERFORMED 06/07/17 07:00 Monocytes % (Manual) 1 % (1.0-6.0) 06/07/17 07:00 Platelet Evaluation High (NORMAL) 06/07/17 07:00 ESR 121 mm/hr (0.00-15.0) H 06/05/17 13:50 APTT 30.8 Seconds (25.1-36.5) 06/06/17 08:00 pCO2 35 mm/Hg (35-45) 06/05/17 15:50 pO2 56.0 mm/Hg (80-100) L 06/05/17 15:50 HCO3 28.6 mmol/L (21-28) H 06/05/17 15:50 ABG pH 7.52 (7.35-7.45) H 06/05/17 15:50 ABG Total CO2 29.7 mmol.L (22-28) H 06/05/17 15:50 ABG O2 Saturation 92.8 % (95-98) L 06/05/17 15:50 ABG O2 Content 14.1 ML/dl (15-23) L 06/05/17 15:50 ABG Base Excess 5.6 mmol/L (-2.0-3.0) H 06/05/17 15:50 ABG Hemoglobin 11.2 g/dL (11.7-17.4) L 06/05/17 15:50 ABG Carboxyhemoglobin 2.5 % (0.5-1.5) H 06/05/17 15:50 POC ABG HHb (Measured) 6.9 % (0-5) H 06/05/17 15:50 ABG Methemoglobin 1.2 % (0.0-3.0) 06/05/17 15:50 ABG O2 Capacity 15.2 mL/dl (16-24) L 06/05/17 15:50 Hgb O2 Saturation 89.4 % (95.0-98.0) L 06/05/17 15:50 FiO2 21.0 % 06/05/17 15:50 Sodium 135 mmol/L (132-148) 06/14/17 07:00 Potassium 3.7 mmol/L (3.6-5.0) 06/14/17 07:00 Chloride 101 mmol/L (98-107) 06/14/17 07:00 Carbon Dioxide 25 mmol/L (21-33) 06/14/17 07:00 Anion Gap 13 (10-20) 06/14/17 07:00 BUN 7 mg/dL (7-21) 06/14/17 07:00 Creatinine 0.6 mg/dl (0.8-1.5) L 06/14/17 07:00 Est GFR ( Amer) > 60 06/14/17 07:00 Est GFR (Non-Af Amer) > 60 06/14/17 07:00 Random Glucose 173 mg/dL (70-110) H 06/14/17 07:00 Calcium 8.1 mg/dL (8.4-10.5) L 06/14/17 07:00 Iron 16 ug/dL (45-180) L 06/06/17 08:00 TIBC 161 ug/dL (261-462) L 06/06/17 08:00 % Saturation 10 % (20-55) L 06/06/17 08:00 Ferritin 422.0 ng/mL 06/06/17 08:00 Total Bilirubin 0.2 mg/dL (0.2-1.3) 06/14/17 07:00 GGT 122 U/L (8-78) H 06/13/17 08:45 AST 51 U/L (17-59) 06/14/17 07:00 ALT 166 U/L (7-56) H 06/14/17 07:00 Alkaline Phosphatase 81 U/L (38-126) 06/14/17 07:00 Total Protein 6.2 g/dL (5.8-8.3) 06/14/17 07:00 Albumin 2.7 g/dL (3.0-4.8) L 06/14/17 07:00 Globulin 3.5 gm/dL 06/14/17 07:00 Albumin/Globulin Ratio 0.8 (1.1-1.8) L 06/14/17 07:00 Triglycerides 208 mg/dL (35-160) H 06/06/17 08:00 Cholesterol 148 mg/dL (130-200) 06/06/17 08:00 LDL Cholesterol Direct 109 mg/dL (0-129) 06/06/17 08:00 HDL Cholesterol 11 mg/dL (29-60) L 06/06/17 08:00 Procalcitonin 0.75 NG/ML (0.19-0.49) H 06/05/17 13:50 Vancomycin Trough 5.1 ug/mL (5.0-10.0) 06/11/17 10:50 Alcohol, Quantitative < 10 mg/dL (0-10) 06/05/17 13:50 IgG 1388.2 mg/dL (700.0-1600.0) 06/13/17 07:00 CMV IgG Ab >10.00 U/mL H 06/13/17 08:45 CMV IgM Ab 33.30 AU/mL H 06/13/17 08:45 Hepatitis A IgM Ab Negative (NEGATIVE) 06/09/17 11:54 Hep Bs Antigen Negative (NEGATIVE) 06/09/17 11:54 Hep Bs Antibody Negative (NEGATIVE) 06/13/17 08:45 Hep B Core IgM Ab Negative (NEGATIVE) 06/13/17 08:45 Hepatitis C Antibody Negative (NEGATIVE) 06/09/17 11:54 HIV 1&2 Ag/Ab, 4th Gen Nonreactive (Nonreactive) 06/06/17 11:40 Influenza Typ A,B (EIA) Negative for flu a/b (NEGATIVE) 06/05/17 13:30 TB Test (QFT) Nil 0.08 IU/mL 06/05/17 13:50 TB Test Mitogen - Nil 0.87 IU/mL 06/05/17 13:50 TB Test TB - Nil 0.05 IU/mL 06/05/17 13:50 TB Test (QFT) Negative (Negative) 06/05/17 13:50 - Hospital Course Hospital Course: 57 year old male with a past medical history significant for alcohol abuse, HTN and HLD, who presents with dry cough with associated chills and throat irritation for a duration of four to five days. Patient was found to be febrile , tachycardic and with leukocytosis in the ED. A chest x-ray and chest CT were done and showed multiple cavitary and necrotic masses in the right lung and subsegmental left upper lobe infiltrates. Quantiferon negative, and three sputum cultures obtained neg for AFB. Pt started on IV antibiotics for lung masses, with decreasing cavitary lesion size on CT chest scan after 6 days of IV antibiotics. Pt's LFTs trended up during the course of hospitalization, with discontinuation of statin, tylenol prn and IV Zosyn. Pt developed a truncal maculopapular erythematous rash during the course of hospitalization, discontinued zosyn and Vancomycin. Pt treated with Benadryl with improvement of his rash. On the day of discharge, pt's liver enzymes were trending down, pt sent home on IV Azactam and PO Zyvox. Pt given a dose of Azactam in the hospital , with no allergic reaction noted. Pt discharged home on IV Azactam and PO Zyvox for 4 weeks, pt states that his and 2 neices (who are nurses) will help him with IV administration. Pt offered subacute rehab, which he refused. Pt to follow up with PMD and Dr Sheppard outpatient. Pt given a script to monitor his CBC, LFTs weekly for the duration of antibiotics (to monitor for thrombocytopenia - SE of Zyvox). Pt also given Benadryl for his rash. Pt explained that he likely has a allergic reaction to Zosyn. Pt and at bedside, understands the plan. Discussed with Dr Wang. Discharge Exam - Head Exam Head Exam: NORMAL INSPECTION - Eye Exam Eye Exam: EOMI, PERRL. absent: Conjunctival injection, Nystagmus, Periorbital tenderness, Scleral icterus Pupil Exam: NORMAL ACCOMODATION, PERRL. absent: Fixed, Irregular, Unequal - ENT Exam ENT Exam: Mucous Membranes Moist - Neck Exam Neck exam: Full Rom - Respiratory Exam Respiratory Exam: Clear to PA & Lateral, NORMAL BREATHING PATTERN. absent: Accessory Muscle Use, Chest Wall Tenderness, Rhonchi, Wheezes, Respiratory Distress, Stridor - Cardiovascular Exam Cardiovascular Exam: RRR, +S1, +S2. absent: Bradycardia, Tachycardia, Systolic Murmur - GI/Abdominal Exam GI & Abdominal Exam: Normal Bowel Sounds, Soft. absent: Diminished Bowel Sounds , Distended, Guarding, Hypoactive Bowel Sounds, Organomegaly, Rebound, Tenderness - Extremities Exam Extremities exam: normal inspection - Back Exam Back exam: NORMAL INSPECTION - Neurological Exam Neurological exam: Alert, Oriented x3 - Psychiatric Exam Psychiatric exam: Normal Affect, Normal Mood - Skin Skin Exam: Dry, Normal Color, Warm Additional comments: + truncal macular erythematous rash noted, improving Discharge Plan - Discharge Medications Prescriptions: DiphenhydrAMINE [Benadryl] 50 mg PO TID 2 Days cap - Follow Up Plan Condition: GUARDED Disposition: HOME/ ROUTINE Instructions: Pneumonia in Adults, Peripherally-Inserted Central Catheter (DC) , Effects of Alcohol on Your Health, Flu Vaccine, Leukocytosis (DC) Additional Instructions: - Take Zyvox by mouth everyday, Ertapenem by IV every day. - Do blood work to monitor your liver tests and cbc every week with your primary care doctor. - Follow up with Dr Sheppard (lung doctor) and primary care doctor in 1 week. - Take Benadryl for 2 more days at home for your rash. - Do Ct chest at end of 4 weeks after completing all antibiotics - Return to Local ER if symptoms worsen. Referrals: Jessica Mcdowell MD [Primary Care Provider] - Joby Sheppard MD [Staff Provider] - <Joby Wang - Last Filed: 06/15/17 17:46> Provider - Provider Date of Admission: 06/05/17 15:58 Attending physician: Joby Wang MD Primary care physician: Jessica Crews MD Hospital Course - Lab Results Lab Results: Micro Results 06/07/17 00:30 Other: Please Indicate Mycobacterial Culture - Preliminary 06/07/17 08:32 Other: Please Indicate Mycobacterial Culture - Preliminary 06/06/17 11:00 Other: Please Indicate Mycobacterial Culture - Preliminary 06/06/17 11:00 Sputum Gram Stain - Final 06/06/17 11:00 Sputum Sputum Culture - Final NORMAL ORAL MAGAN 06/06/17 12:40 Naris MRSA Culture (Admit) - Final MRSA NOT DETECTED Most Recent Lab Values WBC 9.1 10^3/ul (4.5-11.0) 06/14/17 07:00 RBC 3.42 10^6/uL (3.5-6.1) L 06/14/17 07:00 Hgb 10.3 g/dL (14.0-18.0) L 06/14/17 07:00 Hct 31.9 % (42.0-52.0) L 06/14/17 07:00 MCV 93.3 fl (80.0-105.0) 06/14/17 07:00 MCH 30.1 pg (25.0-35.0) 06/14/17 07:00 MCHC 32.3 g/dl (31.0-37.0) 06/14/17 07:00 RDW 15.1 % (11.5-14.5) H 06/14/17 07:00 Plt Count 427 10^3/uL (120.0-450.0) 06/14/17 07:00 MPV 7.9 fl (7.0-11.0) 06/14/17 07:00 Gran % 73.4 % (50.0-68.0) H 06/14/17 07:00 Lymph % (Auto) 21.0 % (22.0-35.0) L 06/14/17 07:00 [place] % (Auto) 4.2 % (1.0-6.0) 06/14/17 07:00 Eos % (Auto) 1.1 % (1.5-5.0) L 06/14/17 07:00 Baso % (Auto) 0.3 % (0.0-3.0) 06/14/17 07:00 Gran # 6.64 (1.4-6.5) H 06/14/17 07:00 Lymph # (Auto) 1.9 (1.2-3.4) 06/14/17 07:00 [place] # (Auto) 0.4 (0.1-0.6) 06/14/17 07:00 Eos # (Auto) 0.1 (0.0-0.7) 06/14/17 07:00 Baso # (Auto) 0.03 K/mm3 (0.0-2.0) 06/14/17 07:00 Neutrophils % (Manual) 99 % (50.0-70.0) H 06/07/17 07:00 Lymphocytes % (Manual) TEST NOT PERFORMED 06/07/17 07:00 Monocytes % (Manual) 1 % (1.0-6.0) 06/07/17 07:00 Platelet Evaluation High (NORMAL) 06/07/17 07:00 ESR 121 mm/hr (0.00-15.0) H 06/05/17 13:50 APTT 30.8 Seconds (25.1-36.5) 06/06/17 08:00 pCO2 35 mm/Hg (35-45) 06/05/17 15:50 pO2 56.0 mm/Hg (80-100) L 06/05/17 15:50 HCO3 28.6 mmol/L (21-28) H 06/05/17 15:50 ABG pH 7.52 (7.35-7.45) H 06/05/17 15:50 ABG Total CO2 29.7 mmol.L (22-28) H 06/05/17 15:50 ABG O2 Saturation 92.8 % (95-98) L 06/05/17 15:50 ABG O2 Content 14.1 ML/dl (15-23) L 06/05/17 15:50 ABG Base Excess 5.6 mmol/L (-2.0-3.0) H 06/05/17 15:50 ABG Hemoglobin 11.2 g/dL (11.7-17.4) L 06/05/17 15:50 ABG Carboxyhemoglobin 2.5 % (0.5-1.5) H 06/05/17 15:50 POC ABG HHb (Measured) 6.9 % (0-5) H 06/05/17 15:50 ABG Methemoglobin 1.2 % (0.0-3.0) 06/05/17 15:50 ABG O2 Capacity 15.2 mL/dl (16-24) L 06/05/17 15:50 Hgb O2 Saturation 89.4 % (95.0-98.0) L 06/05/17 15:50 FiO2 21.0 % 06/05/17 15:50 Sodium 135 mmol/L (132-148) 06/14/17 07:00 Potassium 3.7 mmol/L (3.6-5.0) 06/14/17 07:00 Chloride 101 mmol/L (98-107) 06/14/17 07:00 Carbon Dioxide 25 mmol/L (21-33) 06/14/17 07:00 Anion Gap 13 (10-20) 06/14/17 07:00 BUN 7 mg/dL (7-21) 06/14/17 07:00 Creatinine 0.6 mg/dl (0.8-1.5) L 06/14/17 07:00 Est GFR ( Amer) > 60 06/14/17 07:00 Est GFR (Non-Af Amer) > 60 06/14/17 07:00 Random Glucose 173 mg/dL (70-110) H 06/14/17 07:00 Calcium 8.1 mg/dL (8.4-10.5) L 06/14/17 07:00 Iron 16 ug/dL (45-180) L 06/06/17 08:00 TIBC 161 ug/dL (261-462) L 06/06/17 08:00 % Saturation 10 % (20-55) L 06/06/17 08:00 Ferritin 422.0 ng/mL 06/06/17 08:00 Total Bilirubin 0.2 mg/dL (0.2-1.3) 06/14/17 07:00 GGT 122 U/L (8-78) H 06/13/17 08:45 AST 51 U/L (17-59) 06/14/17 07:00 ALT 166 U/L (7-56) H 06/14/17 07:00 Alkaline Phosphatase 81 U/L (38-126) 06/14/17 07:00 Total Protein 6.2 g/dL (5.8-8.3) 06/14/17 07:00 Albumin 2.7 g/dL (3.0-4.8) L 06/14/17 07:00 Globulin 3.5 gm/dL 06/14/17 07:00 Albumin/Globulin Ratio 0.8 (1.1-1.8) L 06/14/17 07:00 Triglycerides 208 mg/dL (35-160) H 06/06/17 08:00 Cholesterol 148 mg/dL (130-200) 06/06/17 08:00 LDL Cholesterol Direct 109 mg/dL (0-129) 06/06/17 08:00 HDL Cholesterol 11 mg/dL (29-60) L 06/06/17 08:00 Procalcitonin 0.75 NG/ML (0.19-0.49) H 06/05/17 13:50 Vancomycin Trough 5.1 ug/mL (5.0-10.0) 06/11/17 10:50 Alcohol, Quantitative < 10 mg/dL (0-10) 06/05/17 13:50 IgG 1388.2 mg/dL (700.0-1600.0) 06/13/17 07:00 Liver/Kid Microsomes Ab <=20.0 U (<=20.0) 06/13/17 07:00 CMV IgG Ab >10.00 U/mL H 06/13/17 08:45 CMV IgM Ab 33.30 AU/mL H 06/13/17 08:45 Hepatitis A IgM Ab Negative (NEGATIVE) 06/09/17 11:54 Hep Bs Antigen Negative (NEGATIVE) 06/09/17 11:54 Hep Bs Antibody Negative (NEGATIVE) 06/13/17 08:45 Hep B Core IgM Ab Negative (NEGATIVE) 06/13/17 08:45 Hepatitis C Antibody Negative (NEGATIVE) 06/09/17 11:54 HIV 1&2 Ag/Ab, 4th Gen Nonreactive (Nonreactive) 06/06/17 11:40 Influenza Typ A,B (EIA) Negative for flu a/b (NEGATIVE) 06/05/17 13:30 TB Test (QFT) Nil 0.08 IU/mL 06/05/17 13:50 TB Test Mitogen - Nil 0.87 IU/mL 06/05/17 13:50 TB Test TB - Nil 0.05 IU/mL 06/05/17 13:50 TB Test (QFT) Negative (Negative) 06/05/17 13:50 Attending/Attestation - Attestation I have personally seen and examined this patient.: Yes I have fully participated in the care of the patient.: Yes I have reviewed all pertinent clinical information, including history, physical exam and plan: Yes Notes (Text): 06/15/17 17:38 Patient was seen and examined with paramedical aide. Agreed with assessment and plan. 57 year old male with a past medical history significant for alcohol abuse, HTN and HLD with multiple lung abscess and elevated LFT(Transaminase) Repeat CT chest showed decrease in the size of lung abscess.LFT are coming down , statin and zosyn are discontinued. Case was discussed with ID, Patient will need 4 weeks of treatment for lung abscess, antibiotics has been changed to Invanz and Linezolide.Cultures are negative for any growth. Patient will need weekly CBC,CMP and will need repeat CT scan of chest after completion of treatment. Patient will be discharged home and will follow up with PMD and Pulmonary. Issue of compliance with medications and alcohol abuse was discussed in detail. Management plan was discussed in detail with patient. Education was provided.
[2017-06-17 13:42] LABS: MITOCHONDRIAL AB TITER 1:20 Titer (< 1:20)
== END 2017-06-14 16:11 | disposition home or self-care (01) | DRG 177 ==
LOC: ED 11:38 → ERH 15:58 → 5RSO 22:48
PROVIDERS: ADMIT Hospitalist; ATTEND Internal Medicine
PROC: 02HV33Z Insertion of Infusion Device into Superior Vena Cava, Percutaneous Approach (ICD-10-PCS; principal; 2017-06-13)
DX: J85.1 Abscess of lung with pneumonia (principal); J69.0 Pneumonitis due to inhalation of food and vomit; R65.20 Severe sepsis without septic shock; J43.9 Emphysema, unspecified; R16.0 Hepatomegaly, not elsewhere classified; E87.6 Hypokalemia; F10.10 Alcohol abuse, uncomplicated; E78.5 Hyperlipidemia, unspecified; I10 Essential (primary) hypertension; F17.200 Nicotine dependence, unspecified, uncomplicated; L27.0 Generalized skin eruption due to drugs and medicaments taken internally; T36.8X5A Adverse effect of other systemic antibiotics, initial encounter; Y90.0 Blood alcohol level of less than 20 mg/100 ml